=== PATIENT | male | born 1965 | race Caucasian/White ===

== ENCOUNTER 2020-07-14 15:19 | Emergency (ER) | payer BC, SELFPAY ==
[2020-07-14 18:02] VITALS: BP 133/78; PULSE 85; RESP 16; TEMP 36.6; O2SAT 99; BMI 21.9
--- NOTE | 2020-07-14 18:33 | ECG_ITS ---
Test Reason : left rib pain Blood Pressure : / mmHG Vent. Rate : 078 BPM Atrial Rate : 078 BPM P-R Int : 206 ms QRS Dur : 092 ms QT Int : 348 ms P-R-T Axes : 051 -07 050 degrees QTc Int : 396 ms Normal sinus rhythm Cannot rule out Inferior infarct , age undetermined Possible Anterior infarct , age undetermined Abnormal ECG No previous ECGs available Referred By: Olivier Perla Electronically Signed By:MAN SANTOYO MD
--- NOTE | 2020-07-14 18:36 | XR_ITS ---
EXAMINATION: CHEST AND LEFT RIBS. CLINICAL INFORMATION: Left-sided lower rib pain. COMPARISON: Chest 10/25/2017 TECHNIQUE: Chest 2 views. Left RIBS 4 views. FINDINGS: CHEST: The lungs are well-expanded and clear of acute process. The heart size and pulmonary vascularity is normal. There is mild dextroscoliosis of dorsal spine. No lytic process. LEFT RIBS: There is no visible fracture for fracture or bony abnormality. The soft tissues are normal. XR/XR ribs LT 2V IMPRESSION: Unremarkable chest exam. There is no visible left rib fracture or bony abnormality.
--- NOTE | 2020-07-14 18:36 | XR_ITS ---
EXAMINATION: CHEST AND LEFT RIBS. CLINICAL INFORMATION: Left-sided lower rib pain. COMPARISON: Chest 10/25/2017 TECHNIQUE: Chest 2 views. Left RIBS 4 views. FINDINGS: CHEST: The lungs are well-expanded and clear of acute process. The heart size and pulmonary vascularity is normal. There is mild dextroscoliosis of dorsal spine. No lytic process. LEFT RIBS: There is no visible fracture for fracture or bony abnormality. The soft tissues are normal. XR/XR chest 2V IMPRESSION: Unremarkable chest exam. There is no visible left rib fracture or bony abnormality.
--- NOTE | 2020-07-14 18:50 | ED_ITS ---
HPI - General Adult General Chief complaint: Back Pain/Injury Stated complaint: LOWER BACK PAIN Time Seen by Provider: 07/14/20 20:10 Source: patient Mode of arrival: ambulatory Limitations: no limitations History of Present Illness HPI narrative: Patient presents to the ED for left lower rib pain since this morning. Patient states he woke up with left lower rib upper back pain that is worse on movement. Patient also states left chest pain on inspiration Patient denies any recent trauma, coughing, fever, or chills. 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 Related Data Previous Rx's Medication Instructions Recorded cyclobenzaprine 10 mg PO TID PRN #15 tab 07/14/20 naproxen 500 mg PO BID PRN #20 tab 07/14/20 Allergies Allergy/AdvReac Type Severity Reaction Status Date / Time No Known Allergies Allergy Verified 07/14/20 18:33 Review of Systems Review of Systems: Yes all other systems are reviewed and are negative Constitutional: Constitutional: Reports as per HPI and Reports no additional constitutional complaints Eyes: Eyes: Reports as per HPI and Reports no additional eye complaints ENT: Reports system reviewed and no additional complaints, except as documented and Reports as per HPI Cardiovascular: Cardiovascular: Reports as per HPI and Reports no additional cardiovascular complaints Comments: Left lower rib. Respiratory: Respiratory: Reports as per HPI and Reports no additional respiratory complaints Gastrointestinal: Gastrointestinal: Reports as per HPI and Reports no additional gastrointestinal complaints Genitourinary: Genitourinary: Reports no additional male genitourinary complaints and Reports as per HPI Musculoskeletal: Musculoskeletal: Reports no additional musculoskeletal complaints and Reports as per HPI Neurologic: Reports system reviewed and no additional complaints, except as documented Psychiatric: Psychiatric: Reports no additional psychiatric complaints and Reports as per HPI [facility] Past Medical History Medical History (Updated 07/15/20 @ 00:00 by Background Daemon) No known health problems Social History Social History Smoking Status: Current every day smoker Substance Use Type: Marijuana Advance Directives: No Advance Directives Information Provided: Yes Physical Exam 2 Vital Signs: Vital Signs: Last Vital Signs Temp 97.9 F 07/14/20 18:02 Pulse 85 07/14/20 18:02 Resp 16 07/14/20 18:02 BP 133/78 07/14/20 18:02 Pulse Ox 99 07/14/20 18:02 Body Mass Index 21.9 Const: General: cooperative, healthy appearing, comfortable, no acute distress, well developed, alert, awake and Physically active Orientation/consciousness: patient oriented x3 HENMT: Head: Yes normal to inspection and Yes No palpable skull fracture present Eyes: General: appearance normal, both eyes and all related structures Neck: Neck: Yes normal visual inspection, Yes full ROM, Yes no lymphadenopathy, Yes no meningeal signs, Yes trachea midline, Yes supple and No tender Chest: Other: Positive for left lower posterior rib tenderness on palpation. Negative for any deformities or ecchymosis. Chest palpation & inspection: nor mal inspection of the chest Resp: Effort & Inspection: normal respiratory effort and able to speak in complete sentences Auscultation: clear to auscultation bilaterally Cardio: Jugular venous distension: no JVD Heart sounds: S1 normal heart sound present and S2 normal heart sound present GI: Inspection: Yes normal to inspection and No abdominal wall ecchymosis Palpation (GI): Soft to palpation, not firm, nontender, no guarding and not rigid : General: Yes CVA tenderness (Right) and Yes no CVA tenderness Back/Spine/Pelvis: Back: no CVA tenderness, CVA tenderness (Right) and No back tenderness Skin: General skin exam: no rashes or lesions noted and elasticity normal Neuro: General: patient oriented x3, no meningeal signs and CN's II-XI intact bilaterally Cranial nerves: Yes CN's II-XII intact bilaterally Extrem: General: Yes normal to inspection and Yes full ROM Psych: Appearance: grossly normal, well kempt and not disheveled Course Course Course Narrative: Due to patient having left lower rib pain without any trauma with chest pain inspiration. Patient will have cardiac and pulmonary evaluation if there is no MRI or PE. Patient also have urinalysis sent. Patient states he has chronic blood in his urine and has been worked up by urologist and have not found the cause. Patient also given Toradol Flexeril. Other differential muscle spasm. Reevaluation(s) Reevaluation #1: Patient negative D-dimer. Patient's Wells score is 0. Chest x-ray and rib x-ray negative for any rib fractures, pneumonia, pneumothorax, hemothorax. Patient's troponin negative. Patient EKG negative for STEMI. Patient states feeling better. Patient blood in the urine which he states is chronic but due to patient having lower rib left leg pain patient is agreeable to abdominal CT scan to rule out kidney stones. Time: 20:23 Reevaluation #2: CT scan came back negative for any abdominal etiology. Patient discharged with naproxen and Flexeril. Diagnosis muscle spasm Time: 21:44 Medical Decision Making MDM Narrative Medical decision making narrative: Muscle spasm Lab Data Result diagrams: 07/14/20 19:08 07/14/20 19:08 Labs: Lab Results 07/14/20 07/14/20 07/14/20 Range/Units 19:08 19:08 19:08 WBC 12.8 H (4.8-10.8) X10*3/uL RBC 4.85 (4.60-5.80) X10*6/uL Hgb 15.2 (14.0-18.0) g/dl Hct 45.0 (42-52) % MCV 92.8 (80-98) fL MCH 31.3 (27.0-33.0) pg MCHC 33.8 (31.0-36.0) g/dl RDW 13.2 (11.0-16.0) % Plt Count 234 (160-400) X10*3/uL MPV 9.3 L (9.4-12.4) fL Immature Gran % (Auto) 0.9 H (0.0-0.4) % Neut % (Auto) 63.9 (45-73) % Lymph % (Auto) 22.0 (20-40) % Sharp % (Auto) 7.6 (2-11) % Eos % (Auto) 4.7 H (0-4) % Baso % (Auto) 0.9 (0-2) % Lymph # (Auto) 2.8 (1.2-4.9) X10*3/uL Sharp # (Auto) 1.0 (0.1-1.2) X10*3/uL Eos # (Auto) 0.6 H (0.0-0.4) X10*3/uL Baso # (Auto) 0.1 (0.0-0.2) X10*3/uL Abs Immat Gran (auto) 0.11 H (0.00-0.03) X10*3/uL Absolute Neuts (auto) 8.2 (2.0-8.3) X10*3/uL Absolute Nucleated RBC 0.000 (0.0-0.012) X10*3/uL Nucleated RBC % (auto) 0.0 (0.0-0.2) /100WBC PT 11.9 (10.8-13.0) SEC INR 1.0 (0.9-1.1) APTT 34.7 (24.1-38.0) SEC D-Dimer < 200 NG/ML Sodium 138 (135-145) mmol/L Potassium 4.8 (3.3-5.1) mmol/l Chloride 102 (96-108) mmol/L Carbon Dioxide 28 (22-29) mmol/L Anion Gap 13 (12-20) BUN 15 (9-16) mg/dL Creatinine 0.73 (0.5-1.4) mg/dL Estim Creat Clear Calc 103.9 Estimated GFR > 60 Random Glucose 84 (60-115) mg/dL Calcium 9.3 (8.4-10.2) mg/dL Total Bilirubin 1.0 (0.0-1.0) mg/dL AST 21 (5-37) U/L ALT 21 (0-40) U/L Alkaline Phosphatase 55 (39-117) U/L Troponin I High Sens (<3.5-35.0) ng/L Total Protein 7.1 (6.5-8.0) g/dL Albumin 4.4 (3.5-5.0) g/dL Urine Color Urine Appearance Urine pH (5.0-8.0) Ur Specific [place] (1.005-1.025) Urine Protein (NEG-TRACE) MG/DL Urine Glucose (UA) (NEG) MG/DL Urine Ketones (NEG) MG/DL Urine Blood (NEG) Urine Nitrite (NEG) Ur Leukocyte Esterase (NEG) Urine RBC (0) /HPF Urine WBC (0-4) /HPF Ur Squamous Epith Cells /LPF Urine Bacteria /LPF 07/14/20 07/14/20 Range/Units 19:08 19:11 WBC (4.8-10.8) X10*3/uL RBC (4.60-5.80) X10*6/uL Hgb (14.0-18.0) g/dl Hct (42-52) % MCV (80-98) fL MCH (27.0-33.0) pg MCHC (31.0-36.0) g/dl RDW (11.0-16.0) % Plt Count (160-400) X10*3/uL MPV (9.4-12.4) fL Immature Gran % (Auto) (0.0-0.4) % Neut % (Auto) (45-73) % Lymph % (Auto) (20-40) % Sharp % (Auto) (2-11) % Eos % (Auto) (0-4) % Baso % (Auto) (0-2) % Lymph # (Auto) (1.2-4.9) X10*3/uL Sharp # (Auto) (0.1-1.2) X10*3/uL Eos # (Auto) (0.0-0.4) X10*3/uL Baso # (Auto) (0.0-0.2) X10*3/uL Abs Immat Gran (auto) (0.00-0.03) X10*3/uL Absolute Neuts (auto) (2.0-8.3) X10*3/uL Absolute Nucleated RBC (0.0-0.012) X10*3/uL Nucleated RBC % (auto) (0.0-0.2) /100WBC PT (10.8-13.0) SEC INR (0.9-1.1) APTT (24.1-38.0) SEC D-Dimer NG/ML Sodium (135-145) mmol/L Potassium (3.3-5.1) mmol/l Chloride (96-108) mmol/L Carbon Dioxide (22-29) mmol/L Anion Gap (12-20) BUN (9-16) mg/dL Creatinine (0.5-1.4) mg/dL Estim Creat Clear Calc Estimated GFR Random Glucose (60-115) mg/dL Calcium (8.4-10.2) mg/dL Total Bilirubin (0.0-1.0) mg/dL AST (5-37) U/L ALT (0-40) U/L Alkaline Phosphatase (39-117) U/L Troponin I High Sens < 3.5 (<3.5-35.0) ng/L Total Protein (6.5-8.0) g/dL Albumin (3.5-5.0) g/dL Urine Color YELLOW Urine Appearance CLEAR Urine pH 6.0 (5.0-8.0) Ur Specific [place] 1.020 (1.005-1.025) Urine Protein NEG (NEG-TRACE) MG/DL Urine Glucose (UA) NEG (NEG) MG/DL Urine Ketones NEG (NEG) MG/DL Urine Blood 2+ H (NEG) Urine Nitrite NEG (NEG) Ur Leukocyte Esterase NEG (NEG) Urine RBC 1-4 (0) /HPF Urine WBC 0 (0-4) /HPF Ur Squamous Epith Cells TRACE /LPF Urine Bacteria NONE /LPF ECG Data Interpretation: Normal sinus rhythm. Ventricular rate 78. Pr interval 206. QRS 92. QTC 296. Negative STEMI Discharge Plan Discharge Clinical Impression: Muscle spasm Patient Disposition: Home, Self-Care Instructions: Muscle Spasm (ED) Additional Instructions: Return to ED for chest pain, coughing up blood, swelling of lower extremities, calf pain, fever, chills, or any other concerning symptoms. Prescriptions: New cyclobenzaprine 10 mg tablet 10 mg PO TID PRN (Reason: pain) Qty: 15 RF: 0 naproxen 500 mg tablet 500 mg PO BID PRN (Reason: pain) Qty: 20 RF: 0 Referrals: Rodger Chris MD [Primary Care Provider] - 2 days (Back spasm) Stand Alone Forms: Work/School Release Interventions: ED Discharge Assessment Last Done: 07/14/20 22:11 Discharge Date/Time: 07/14/20 22:16 Print Language: Amharic
[2020-07-14 19:18] LABS: MANUAL DIFF FLAG NO
[2020-07-14 19:22] LABS: Basophils Absolute Auto 0.1 X10*3/uL (0.0-0.2); Basophils Percent Auto 0.9 % (0-2); Eosinophils Absolute Auto 0.6 X10*3/uL (0.0-0.4); Eosinophils Percent Auto 4.7 % (0-4); Hemoglobin 15.2 g/dl (14.0-18.0); Imm Gran Abs Auto 0.11 X10*3/uL (0.00-0.03); Imm Gran Pct Auto 0.9 % (0.0-0.4); Lymphocytes Absolute Auto 2.8 X10*3/uL (1.2-4.9); Mean Corpuscular HGB Conc 33.8 g/dl (31.0-36.0); Mean Corpuscular Hemoglobin 31.3 pg (27.0-33.0); Mean Corpuscular Volume 92.8 fL (80-98); Mean Platelet Volume 9.3 fL (9.4-12.4); Monocytes Percent Auto 7.6 % (2-11); Neutrophils Absolute Auto 8.2 X10*3/uL (2.0-8.3); Neutrophils Percent Auto 63.9 % (45-73); Platelet Count 234 X10*3/uL (160-400); Red Blood Count 4.85 X10*6/uL (4.60-5.80); Red Cell Distribution Width 13.2 % (11.0-16.0); White Blood Count 12.8 X10*3/uL (4.8-10.8)
[2020-07-14 19:31] LABS: Prothrombin Time 11.9 SEC (10.8-13.0)
[2020-07-14 19:32] LABS: Glucose Urine UA NEG (NEG); Leukocyte Esterase Urine NEG (NEG); Nitrite Urine NEG (NEG); Urine Blood 2+ (NEG); Urine Ketones NEG (NEG); Urine Protein NEG (NEG-TRACE)
[2020-07-14 19:34] LABS: Partial Thromboplastin Time 34.7 SEC (24.1-38.0)
[2020-07-14 19:35] LABS: Appearance Urine CLEAR; Color Urine YELLOW
[2020-07-14 19:35] LABS: D Dimer < 200 NG/ML
[2020-07-14] MEDS: Ketorolac Tromethamine 30 MG/ML VIAL IM (19:36)
[2020-07-14] MEDS: Cyclobenzaprine HCl 5 MG TABLET PO (19:40)
[2020-07-14 19:45] LABS: Squamous Epithelial Cell Urine TRACE /LPF; WBC Urine 0 /HPF (0-4)
[2020-07-14 19:52] LABS: Alanine Aminotransferase 21 U/L (0-40); Albumin Level 4.4 g/dL (3.5-5.0); Alkaline Phosphatase 55 U/L (39-117); Anion Gap 13 (12-20); Aspartate Amino Transferase 21 U/L (5-37); Blood Urea Nitrogen 15 mg/dL (9-16); Calcium 9.3 mg/dL (8.4-10.2); Carbon Dioxide 28 mmol/L (22-29); Chloride 102 mmol/L (96-108); Creatinine Clr Calc Pharmacy 103.9; Estimated Glomerular Filt Rate > 60; Glucose Random 84 mg/dL (60-115); Potassium 4.8 mmol/l (3.3-5.1); Sodium 138 mmol/L (135-145); Total Protein 7.1 g/dL (6.5-8.0)
[2020-07-14 19:55] LABS: Troponin-I High Sensitivity < 3.5 ng/L (<3.5-35.0)
--- NOTE | 2020-07-14 20:14 | CT_ITS ---
EXAMINATION: CT ABDOMEN AND PELVIS WITHOUT CONTRAST CLINICAL INFORMATION: Left flank pain. Rule out kidney stone. COMPARISON: None TECHNIQUE: Multidetector volumetric imaging was performed from the superior aspect of the liver through the pubic symphysis. Sagittal and coronal reformatted images were obtained on the technologist's workstation. This CT examination was performed using dose optimization techniques as appropriate, variously including the following: *Automated exposure control *Adjustment of mA and/or kV according to patient size (this includes techniques or standardized protocols for targeted exams where dose is matched to indication/reason for exam; i.e. extremities or head) *Use of iterative reconstruction technique DLP: 383 mGy-cm FINDINGS: LUNG BASES: The visualized lung bases are unremarkable. LIVER, GALLBLADDER, AND BILIARY TREE: The liver is normal in size, shape, and attenuation. No focal hepatic lesion or biliary ductal dilatation is present. The gallbladder is unremarkable with no evidence of radiopaque gallstones, gallbladder wall thickening, or obvious pericholecystic inflammatory changes. PANCREAS: Unremarkable. SPLEEN: Unremarkable. ADRENAL GLANDS: Unremarkable. KIDNEYS AND URETERS: The kidneys are normal in size, shape, and attenuation. No hydronephrosis, hydroureter, or calculi seen. No perinephric stranding. BLADDER: Normal. GASTROINTESTINAL TRACT: The small and large bowel are unremarkable. Colonic diverticulosis. No evidence of diverticulitis. The appendix is unremarkable (3:40/83). ABDOMINAL WALL: No significant hernia is appreciated. LYMPH NODES: Normal. VASCULAR: Mild aortoiliac atherosclerotic disease. PELVIC VISCERA: Seminal vesicles and prostate are normal in caliber. OSSEOUS STRUCTURES: Severe multilevel degenerative disc disease and endplate marginal osteophytosis of the lumbar spine CT/CT abdomen pelvis wo con IMPRESSION: 1. No evidence of renal calculi. No ureteral or urinary bladder calculi visualized. 2. Colonic diverticulosis. No evidence of diverticulitis. 3. 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 4. Normal appendix. 5. Severe lumbar degenerative disc disease and multilevel endplate degenerative changes.
== END 2020-07-14 22:16 | disposition home or self-care (01) ==
PROVIDERS: Physician Assistant; Emergency Provider Internal Medicine; PCP Internal Medicine
DX: R07.81 Pleurodynia (principal); M62.830 Muscle spasm of back; M54.5 Low back pain; F17.200 Nicotine dependence, unspecified, uncomplicated; Z71.6 Tobacco abuse counseling; F12.90 Cannabis use, unspecified, uncomplicated; Z79.899 Other long term (current) drug therapy
CPT/HCPCS: 36415; 71046; 71100; 74176; 80053; 81001; 84484; 85025; 85379; 85610; 85730; 93005; 96372; 99284; J1885

== ENCOUNTER 2020-08-03 09:58 | Outpatient (REF) | payer BC, SELFPAY ==
[2020-08-03 10:42] LABS: Influenza A PCR NEGATIVE (Negative); Influenza B PCR NEGATIVE (Negative); Resp Syncy Virus RNA Qual PCR NEGATIVE (Negative); SARS COV2 PCR INHOUSE NEGATIVE (Negative)
== END 2020-08-03 09:59 | disposition home or self-care (01) ==
LOC: HO.LNP 09:58
PROVIDERS: Visit Provider Internal Medicine
DX: Z20.822 Contact with and (suspected) exposure to COVID-19 (principal)
CPT/HCPCS: 0241U

== ENCOUNTER 2021-10-27 06:07 | Outpatient (REF) | payer BC, SELFPAY ==
[2021-10-27 06:22] LABS: MANUAL DIFF FLAG NO
[2021-10-27 07:22] LABS: Basophils Absolute Auto 0.1 X10*3/uL (0.0-0.2); Basophils Percent Auto 1.2 % (0-2); Eosinophils Absolute Auto 0.7 X10*3/uL (0.0-0.4); Eosinophils Percent Auto 7.2 % (0-4); Hematocrit 45.5 % (42.0-52.0); Hemoglobin 15.3 g/dl (14.0-18.0); Imm Gran Abs Auto 0.03 X10*3/uL (0.00-0.03); Imm Gran Pct Auto 0.3 % (0.0-0.4); Lymphocytes Absolute Auto 2.3 X10*3/uL (1.2-4.9); Lymphocytes Percent Auto 23.9 % (20-40); Mean Corpuscular HGB Conc 33.6 g/dl (31.0-36.0); Mean Corpuscular Hemoglobin 31.8 pg (27.0-33.0); Mean Corpuscular Volume 94.6 fL (80.0-98.0); Mean Platelet Volume 9.7 fL (9.4-12.4); Monocytes Absolute Auto 0.7 X10*3/uL (0.1-1.2); Monocytes Percent Auto 7.2 % (2-11); Neutrophils Absolute Auto 5.9 x10*3/uL (2.0-8.3); Neutrophils Percent Auto 60.2 % (45-73); Platelet Count 236 X10*3/uL (160-400); Red Blood Count 4.81 X10*6/uL (4.60-5.80); Red Cell Distribution Width 13.9 % (11.0-16.0); White Blood Count 9.8 X10*3/uL (4.8-10.8)
[2021-10-27 07:50] LABS: Alanine Aminotransferase 17 U/L (0-40); Albumin Level 3.9 g/dL (3.5-5.0); Alkaline Phosphatase 51 U/L (39-117); Anion Gap 10 (12-20); Aspartate Amino Transferase 20 U/L (5-37); Blood Urea Nitrogen 14 mg/dL (9-16); Calcium 9.4 mg/dL (8.4-10.2); Carbon Dioxide 29 mmol/L (22-29); Chloride 104 mmol/L (96-108); Cholesterol 196 mg/dL; Estimated Glomerular Filt Rate > 60; Glucose Fasting 94 mg/dL (60-99); HDL Cholesterol 50 mg/dL; LDL Cholesterol Calculated 136 mg/dl; Potassium 4.6 mmol/L (3.3-5.1); Sodium 138 mmol/L (135-145); Total Protein 6.6 g/dL (6.5-8.0); Triglycerides 50 mg/dL
[2021-10-27 08:13] LABS: Prostate Specific Antigen Scr 1.19 ng/mL (<0.05-4.0)
[2021-10-27 08:21] LABS: Appearance Urine CLEAR; Color Urine YELLOW; Glucose Urine UA NEG (NEG); Leukocyte Esterase Urine NEG (NEG); Nitrite Urine NEG (NEG); Specific Gravity - Urine 1.025 (1.005-1.025); Urine Blood 2+ (NEG); Urine Ketones NEG (NEG); Urine Protein NEG (NEG-TRACE)
[2021-10-27 09:10] LABS: Squamous Epithelial Cell Urine 1+ /LPF
[2021-10-27 09:12] LABS: WBC Urine 0 /HPF (0-4)
[2021-10-29 00:51] LABS: Lyme Abs Screen <0.90 index
== END 2021-10-27 06:08 | disposition home or self-care (01) ==
LOC: HO.LAB 06:07
PROVIDERS: PCP Internal Medicine; Visit Provider Internal Medicine
DX: Z00.00 Encounter for general adult medical examination without abnormal findings (principal); T14.8XXA Other injury of unspecified body region, initial encounter; W57.XXXA Bitten or stung by nonvenomous insect and other nonvenomous arthropods, initial encounter
CPT/HCPCS: 36415; 80053; 80061; 81001; 84153; 85025; 86617; 86618

== ENCOUNTER → 2021-11-19 09:14 | Outpatient (BNVA) | payer BC, SELFPAY | PROVIDERS: PCP Internal Medicine; Referring Provider Internal Medicine; Visit Provider Surgery | DX: Z13.89 Encounter for screening for other disorder (principal) ==

== ENCOUNTER 2021-12-24 14:25 | Outpatient (REF) | payer BC, SELFPAY ==
--- NOTE | ~2021-12-24 | CT_ITS ---
EXAMINATION: CT CHEST SCREENING CLINICAL INFORMATION: Current smoker. 40 pack year history. COMPARISON: Previous chest CT October 2017 and chest and rib x-ray July 2020 TECHNIQUE: Multidetector volumetric CT imaging of the chest is performed without contrast using low dose technique. Additional 2D coronal and sagittal reformatted images and axial 3D maximum intensity projection (MIP) images are generated on the CT workstation. This CT examination was performed using dose optimization techniques as appropriate, variously including the following: *Automated exposure control *Adjustment of mA and/or kV according to patient size (this includes techniques or standardized protocols for targeted exams where dose is matched to indication/reason for exam; i.e. extremities or head) *Use of iterative reconstruction technique DLP: 49 mGy-cm FINDINGS: LUNGS: There is a new 3 mm peripheral or subpleural left lower lobe nodule adjacent to the fissure axial image 259 series 5. Pulmonary nodules are otherwise stable. Largest pulmonary nodule is a 5 mm calcified right lower lobe nodule axial image 267 series 5. No endobronchial or endotracheal lesion. MEDIASTINUM: There is mild coronary artery calcification. The mediastinum is otherwise normal. PLEURA: There is no pleural effusion. No pleural mass or thickening. AXILLA: No lymphadenopathy. UPPER ABDOMEN: Unremarkable OSSEOUS STRUCTURES: Unremarkable. CT/CT lung screening IMPRESSION: New 3 mm peripheral or subpleural left lower lobe nodule adjacent to the fissure probably representing a subpleural lymph node. Otherwise pulmonary nodules are stable. Mild coronary artery calcification. ASSESSMENT: Lung-RADS category 2: Benign RECOMMENDATION: Annual low-dose chest CT follow-up recommended.
[2021-12-24 15:11] LABS: Urine Cytology See Pathology rpt
== END 2021-12-24 14:26 | disposition home or self-care (01) ==
LOC: HO.CT 14:25
PROVIDERS: Internal Medicine; Visit Provider Physician Assistant Medical
DX: Z12.2 Encounter for screening for malignant neoplasm of respiratory organs (principal); F17.210 Nicotine dependence, cigarettes, uncomplicated
CPT/HCPCS: 71271; 88112; G0296

== ENCOUNTER 2022-01-10 15:34 | Outpatient (REF) | payer BC, SELFPAY ==
--- NOTE | ~2022-01-10 | US_ITS ---
EXAMINATION: US RETROPERITONEAL LIMITED (RENAL ONLY) CLINICAL INFORMATION: Hematuria COMPARISON: CT abdomen and pelvis 07/14/2020. TECHNIQUE: Real-time imaging of the kidneys. FINDINGS: RIGHT KIDNEY: 11.8 x 4.1 x 5.1 cm (SAG x AP x TRV). The kidney is normal in size, contour, and echogenicity. Renal cortical thickness is normal. No calculi or focal parenchymal lesions. No hydronephrosis. LEFT KIDNEY: 10.2 x 5.9 x 5.5 cm (SAG x AP x TRV). The kidney is normal in size, contour, and echogenicity. Renal cortical thickness is normal. No renal calculi or hydronephrosis. There is an anechoic cyst midpole with echogenic calcified rim measuring 1.2 x 0.8 x 1.1 cm. US/US renal BI IMPRESSION: Complex cyst midpole left kidney. No echogenic stones, calculi or hydronephrosis in either kidney.
== END 2022-01-10 15:35 | disposition home or self-care (01) ==
LOC: HO.US 15:34
PROVIDERS: Visit Provider Internal Medicine
DX: R31.9 Hematuria, unspecified (principal)
CPT/HCPCS: 76775

== ENCOUNTER 2022-06-01 14:40 | Outpatient (REF) | payer BC, SELFPAY ==
[2022-06-01 16:45] LABS: Urine Cytology See Pathology rpt
== END 2022-06-01 14:41 | disposition home or self-care (01) ==
LOC: HO.LAB 14:40
PROVIDERS: Visit Provider Urology
DX: R31.9 Hematuria, unspecified (principal)
CPT/HCPCS: 88112

== ENCOUNTER → 2022-07-12 13:56 | Outpatient (BNVA) | payer BC, SELFPAY | PROVIDERS: PCP Internal Medicine; Visit Provider Urology | DX: R31.9 Hematuria, unspecified (principal) | CPT/HCPCS: 52000 ==

== ENCOUNTER 2023-04-28 15:48 | Outpatient (REF) | payer BC, SELFPAY ==
--- NOTE | ~2023-04-28 | CT_ITS ---
EXAMINATION: CT CHEST SCREENING CLINICAL INFORMATION: Current smoker. 41 pack year history. COMPARISON: Previous chest CT most recent December 2021 TECHNIQUE: Multidetector volumetric CT imaging of the chest is performed without contrast using low dose technique. Additional 2D coronal and sagittal reformatted images and axial 3D maximum intensity projection (MIP) images are generated on the CT workstation. This CT examination was performed using dose optimization techniques as appropriate, variously including the following: *Automated exposure control *Adjustment of mA and/or kV according to patient size (this includes techniques or standardized protocols for targeted exams where dose is matched to indication/reason for exam; i.e. extremities or head) *Use of iterative reconstruction technique DLP: 41 mGy-cm FINDINGS: LUNGS: Mild paraseptal emphysema. Stable small pulmonary nodules, largest a 5 mm calcified right lower lobe nodule axial image 275 series 5. MEDIASTINUM: The mediastinum is normal. CORONARY ARTERY CALCIFICATION: Mild PLEURA: There is no pleural effusion. No pleural mass or thickening. AXILLA: No lymphadenopathy. UPPER ABDOMEN: Unremarkable OSSEOUS STRUCTURES: Unremarkable. CT/CT lung screening IMPRESSION: Mild emphysema. Stable small pulmonary nodules. ASSESSMENT: Lung-RADS category 2: Benign RECOMMENDATION: Annual low-dose chest CT follow-up recommended
== END 2023-04-28 15:49 | disposition home or self-care (01) ==
LOC: HO.CT 15:48
PROVIDERS: PCP Internal Medicine; Visit Provider Physician Assistant Medical
DX: Z12.2 Encounter for screening for malignant neoplasm of respiratory organs (principal); F17.210 Nicotine dependence, cigarettes, uncomplicated
CPT/HCPCS: 71271

== ENCOUNTER 2023-10-26 08:42 | Emergency (ER) | payer BC, SELFPAY ==
--- NOTE | 2023-10-26 | ECG_ITS ---
Test Reason : chest pain Blood Pressure : / mmHG Vent. Rate : 076 BPM Atrial Rate : 076 BPM P-R Int : 216 ms QRS Dur : 092 ms QT Int : 344 ms P-R-T Axes : 060 -12 045 degrees QTc Int : 387 ms Sinus rhythm with 1st degree A-V block Incomplete right bundle branch block Cannot rule out Inferior infarct (cited on or before 14-JUL-2020) Possible Anterior infarct (cited on or before 14-JUL-2020) Abnormal ECG When compared with ECG of 14-JUL-2020 19:45, No significant change was found Referred By: Generic ED Physician Electronically Signed By:MAN SANTOYO MD
--- NOTE | ~2023-10-26 | CT_ITS ---
EXAMINATION: CT ANGIOGRAM OF THE CHEST WITH CONTRAST (CT PULMONARY ANGIOGRAM FOR PE) CLINICAL INFORMATION: Recent travel, chest pain, evaluate for PE v dissection COMPARISON: Chest CT from 04/28/2023 TECHNIQUE: Prior to contrast administration, noncontrast localization images were obtained. Subsequently, multidetector volumetric imaging was performed from the thoracic inlet to below the diaphragms following the administration of 65 mL Omnipaque 350 intravenous contrast. No contrast reaction reported. Sagittal, coronal, and MIP oblique sagittal reformatted images were obtained on the CT workstation, uploaded to PACS, and reviewed. This CT examination was performed using dose optimization techniques as appropriate, variously including the following: *Automated exposure control *Adjustment of mA and/or kV according to patient size (this includes techniques or standardized protocols for targeted exams where dose is matched to indication/reason for exam; i.e. extremities or head) *Use of iterative reconstruction technique DLP: Total exam dose-length product 271 mGy-cm FINDINGS: LUNGS AND PLEURA: Mild pulmonary emphysema. The bronchial bill are chronically diffusely, mildly thickened. Findings include old calcified granuloma in the right lower lobe. No interval development of a suspicious lung nodule, mass or consolidation. No pleural effusion or pneumothorax. There are hazy opacities of mild atelectasis in lower lobes. QUALITY OF STUDY/CONTRAST BOLUS: Satisfactory. PULMONARY ARTERIES: The pulmonary arteries are normal in size. No embolic filling defects within the main, lobar or segmental vessels. OTHER CARDIOVASCULAR: The heart size is normal. No pericardial effusion. Mild atherosclerotic calcification of the left anterior descending coronary artery is noted. Thoracic aorta is normal in caliber and has mild atherosclerotic calcification. MEDIASTINUM/LOWER NECK: No mediastinal mass. The esophagus and thyroid gland are unremarkable. LYMPHATICS: No pathologic sized axillary, hilar or mediastinal lymph nodes. UPPER ABDOMEN: Unremarkable. OSSEOUS STRUCTURES: Mild spondylosis of the thoracic spine. Mild pectus excavatum. No acute or suspicious osseous abnormality. CT/CT angio chest PE protocol IMPRESSION: * No evidence of pulmonary embolism. * Mild pulmonary emphysema.
--- NOTE | ~2023-10-26 | XR_ITS ---
EXAMINATION: XR CHEST CLINICAL INFORMATION: Chest pain COMPARISON: Radiographs from 07/22/2020. Chest CT from 04/28/2023. TECHNIQUE: 2 views of the chest were obtained. FINDINGS: Lungs are well expanded. No acute findings. No consolidation, pneumothorax or pleural effusion. Calcified granuloma within right lower lobe. Cardiac silhouette has normal size and contour. Mild pectus excavatum. Mild multilevel discovertebral degenerative change of the visualized spine. XR/XR chest 2V IMPRESSION: No acute pulmonary disease.
--- NOTE | ~2023-10-26 | US_ITS ---
EXAMINATION: US VENOUS ULTRASOUND WITH DOPPLER LOWER EXTREMITY, RIGHT CLINICAL INFORMATION: Recent travel and right leg pain COMPARISON: None available. TECHNIQUE: Ultrasound of the deep veins is performed from the hip to the calf with compression sonography and color and pulse Doppler assessment. Spectral analysis with color-flow imaging is performed. FINDINGS: There is normal venous compression and respiratory variation. The visualized common femoral vein, superficial femoral vein, profunda femoral vein, popliteal vein, and the mid calf posterior tibial and peroneal veins shows no evidence of deep venous thrombosis. The contralateral common femoral vein demonstrates normal respiratory variation. Incidental note is made of a 2.9 x 0.8 x 1.9 cm benign-appearing lymph node in the right groin. US/US venous duplex LE RT IMPRESSION: No DVT demonstrated in the right lower extremity.
[2023-10-26 08:57] VITALS: BP 137/76; PULSE 74; RESP 18; TEMP 36.4; O2SAT 99; BMI 22.9
[2023-10-26 09:22] LABS: MANUAL DIFF FLAG NO
[2023-10-26 09:24] LABS: Basophils Absolute Auto 0.1 X10*3/uL (0.0-0.2); Eosinophils Absolute Auto 0.8 X10*3/uL (0.0-0.4); Eosinophils Percent Auto 8.3 % (0-4); Hematocrit 47.3 % (42.0-52.0); Hemoglobin 16.2 g/dl (14.0-18.0); Imm Gran Abs Auto 0.03 X10*3/uL (0.00-0.03); Imm Gran Pct Auto 0.3 % (0.0-0.4); Lymphocytes Absolute Auto 2.1 X10*3/uL (1.2-4.9); Lymphocytes Percent Auto 21.4 % (20-40); Mean Corpuscular HGB Conc 34.2 g/dl (31.0-36.0); Mean Corpuscular Hemoglobin 31.6 pg (27.0-33.0); Mean Corpuscular Volume 92.4 fL (80.0-98.0); Monocytes Absolute Auto 0.9 X10*3/uL (0.1-1.2); Monocytes Percent Auto 8.8 % (2-11); Neutrophils Absolute Auto 5.8 x10*3/uL (2.0-8.3); Neutrophils Percent Auto 60.2 % (45-73); Platelet Count 236 X10*3/uL (160-400); Red Blood Count 5.12 X10*6/uL (4.60-5.80); Red Cell Distribution Width 13.5 % (11.0-16.0); White Blood Count 9.7 X10*3/uL (4.8-10.8)
[2023-10-26 09:36] LABS: D Dimer High Sensitivity < 150 NG/ML
[2023-10-26 09:38] LABS: Anion Gap 9 (12-20); Blood Urea Nitrogen 15 mg/dL (9-16); Calcium 9.7 mg/dL (8.4-10.2); Carbon Dioxide 30 mmol/L (22-29); Chloride 104 mmol/L (96-108); Creatinine Clr Calc Pharmacy 95.2; Estimated Glomerular Filt Rate > 60; Glucose Random 72 mg/dL (60-115); Potassium 4.2 mmol/L (3.3-5.1); Sodium 139 mmol/L (135-145)
[2023-10-26 09:46] LABS: Troponin-I High Sensitivity 5.2 ng/L (<3.5-35.0)
[2023-10-26 10:01] LABS: Influenza A PCR NEGATIVE (Negative); Influenza B PCR NEGATIVE (Negative); Resp Syncy Virus RNA Qual PCR NEGATIVE (Negative); SARS COV2 PCR INHOUSE NEGATIVE (Negative)
[2023-10-26 10:16] VITALS: BP 137/81; PULSE 66; RESP 20; O2SAT 97
--- NOTE | 2023-10-26 11:09 | ED.CHESTPAIN ---
HPI - Chest Pain General Chief Complaint: Chest Pain Stated Complaint: Chest pain Time Seen by Provider: 10/26/23 11:00 Source: patient Mode of arrival: ambulatory Limitations: no limitations History of Present Illness HPI narrative: 58-year-old male came in for evaluation of chest pain that started since yesterday at mid day about 24 hours now, pain is in the mid chest described as constant pain that waxes and wanes, in the morning the pain was very severe 10/10 and was more significant if he moves his head in the neck to either sides when the sharp pain flare up patient can not take a deep breath, but no difficulty breathing, no coughing. Patient has been complaining of right lower extremity pain, patient had a recent to 21 hours flight to [place] last week. Patient is a smoker 30 back-years, patient drinks 6 beer every night otherwise declined using any drugs. No history of PE or DVT. Related Data Home Medications ?Medication ?Instructions ?Recorded ?Confirmed ibuprofen 800 mg tablet 800 mg PO TID PRN pain 11/19/21 11/19/21 Previous Rx's ?Medication ?Instructions ?Recorded cyclobenzaprine 10 mg tablet 10 mg PO TID PRN pain #15 tabs 07/14/20 naproxen 500 mg tablet 500 mg PO BID PRN pain #20 tabs 07/14/20 Allergies Allergy/AdvReac Type Severity Reaction Status Date / Time No Known Allergies Allergy Verified 10/26/23 09:00 Review of Systems Review of Systems: All other systems are reviewed and are negative Constitutional: Reports as per HPI and Reports no additional constitutional complaints Eyes: Reports as per HPI and Reports no additional eye complaints Reports system reviewed and no additional complaints, except as documented Cardiovascular: Reports as per HPI and Reports no additional cardiovascular complaints Respiratory: Reports as per HPI and Reports no additional respiratory complaints Gastrointestinal: Reports as per HPI and Reports no additional gastrointestinal complaints Genitourinary: Reports no additional female genitourinary complaints Musculoskeletal: Reports no additional musculoskeletal complaints Skin/Breast: Reports system reviewed and no additional complaints, except as docu Psychiatric: Reports no additional psychiatric complaints Endocrine: Reports no additional endocrine complaints Hematologic/Lymphatic: Reports no additional hematologic/lymphatic complaints Allergic/Immunologic: Reports no additional allergic/immunologic complaints Reports system reviewed and no additional complaints, except as documented and Reports Abnormal speech present [facility] Past Medical History Medical History History of colon polyps Personal history of nicotine dependence Surgical History History of colonoscopy Social History Social History Alcohol intake: current Alcohol intake frequency: 3 or more drinks per day Alcohol type: beer Patient Tobacco Use Status: Current everyday Tobacco user Years Smoked: (onset 13yo, 1ppd x 43yrs, 40pyh) Smoked in Last 30 Days: Yes Use of substances other than those prescribed or required for medical reasons: No Substance Use Type: Marijuana Advance Directives: No Advance Directives Information Provided: Yes Do you have a plan to hurt others: No Plan Physical Exam Vital Signs: Vital Signs: Last Vital Signs Temp 97.6 F 10/26/23 12:44 Pulse 66 10/26/23 12:44 Resp 15 10/26/23 12:44 BP 143/85 H 10/26/23 12:44 Pulse Ox 98 10/26/23 12:44 O2 Del Method Room Air 10/26/23 12:44 BMI result Body Mass Index 22.9 Vital signs have been reviewed and appear to be correct. Blood pressure elevated. Heart rate normal. Respiratory rate normal. Temperature normal. Oxygen saturation normal. Appearance: Alert. Oriented X3. No acute distress. Head: Normal external exam. Normocephalic. Atraumatic. No Membreno signs noted. No raccoon eyes noted Eyes: PERRLA. EOMI. Conjunctiva and sclera normal. Eyelids normal. ENT: TM's Normal. Pharynx normal. Uvula midline. Moist mucous membranes. No trismus noted. No drooling noted. No muffled voice noted. Neck: Normal inspection. Neck supple. FROM. No adenopathy. Thyroid Normal. No meningeal signs. No neck mass noted. CVS: Normal heart rate and rhythm. Heart sound normal. No murmurs noted. Pulses normal throughout. Respiratory: No respiratory distress. Painless inspiration. Breath sounds normal. No wheezes/rales/rhonchi noted. Chest nontender. No accessory muscle usage noted or decreased air movement noted. Abdomen: Soft and nontender. Bowel sounds normal in all 4 quadrants. No distention noted. No organomegaly noted. No visible injury noted. Back: No CVA tenderness. Full range of motion noted. Skin: Skin warm and dry. Normal skin color. Normal skin turgor. No rashes/lesions/lacerations noted. Extremities: No lower extremity edema. Extremities exhibit normal range of motion. Extremities nontender. Neuro: Oriented X 3. Cranial nerve exam: II-XII are grossly intact No motor deficit. No sensory deficit. Reflexes normal. Course Reevaluation(s) Reevaluation #1: Chest pain feels better appears to be muscular since it worse in by movement and taking a deep breath. Unremarkable labs, CTA is negative for catastrophic pulmonary or vascular disease. Patient was reassured to follow-up with PCP and take NSAIDs if needed pain. Time: 13:59 Medications Administered Discontinued Medications Generic Name Dose Route Start Last Admin Trade Name Freq PRN Reason Stop Dose Admin Iohexol 100 ml 10/26/23 12:32 10/26/23 12:33 Iohexol 350 Mg/Ml 100 Ml Infus..Btl IV 10/26/23 12:33 65 ml ONCE ONE Administration Medical Decision Making Differential Diagnosis Differential Diagnoses: The differential diagnosis associated with the presentation includes (ACS, CHF, pneumothorax, pleural effusion, aortic dissection, pulmonary embolism, pneumonia electrolyte derangement, severe anemia, acute pancreatitis, acute cholecystitis.) Admission/Observation Consideration of admission/observation: Escalation of care including admission/observation considered Lab Data MDM Lab Attestation statement: I reviewed the patient's lab results. 10/26/23 09:18 10/26/23 09:18 Labs: Lab Results 10/26/23 10/26/23 10/26/23 Range/Units 09:17 09:18 13:02 WBC 9.7 (4.8-10.8) X10*3/uL RBC 5.12 (4.60-5.80) X10*6/uL Hgb 16.2 (14.0-18.0) g/dl Hct 47.3 (42.0-52.0) % MCV 92.4 (80.0-98.0) fL MCH 31.6 (27.0-33.0) pg MCHC 34.2 (31.0-36.0) g/dl RDW 13.5 (11.0-16.0) % Plt Count 236 (160-400) X10*3/uL MPV 9.0 L (9.4-12.4) fL Immature Gran % (Auto) 0.3 (0.0-0.4) % Neut % (Auto) 60.2 (45-73) % Lymph % (Auto) 21.4 (20-40) % Henderson % (Auto) 8.8 (2-11) % Eos % (Auto) 8.3 H (0-4) % Baso % (Auto) 1.0 (0-2) % Lymph # (Auto) 2.1 (1.2-4.9) X10*3/uL Henderson # (Auto) 0.9 (0.1-1.2) X10*3/uL Eos # (Auto) 0.8 H (0.0-0.4) X10*3/uL Baso # (Auto) 0.1 (0.0-0.2) X10*3/uL Abs Immat Gran (auto) 0.03 (0.00-0.03) X10*3/uL Absolute Neuts (auto) 5.8 (2.0-8.3) x10*3/uL Absolute Nucleated RBC 0.000 (0.0-0.012) X10*3/uL Nucleated RBC % (auto) 0.0 (0.0-0.2) /100WBC D-Dimer High Sensitivty < 150 NG/ML Sodium 139 (135-145) mmol/L Potassium 4.2 (3.3-5.1) mmol/L Chloride 104 (96-108) mmol/L Carbon Dioxide 30 H (22-29) mmol/L Anion Gap 9 L (12-20) BUN 15 (9-16) mg/dL Creatinine 0.80 (0.5-1.4) mg/dL Estim Creat Clear Calc 95.2 Estimated GFR > 60 Random Glucose 72 (60-115) mg/dL Calcium 9.7 (8.4-10.2) mg/dL Troponin I High Sens 5.2 < 2.7 (<3.5-35.0) ng/L Influenza Type A (PCR) NEGATIVE (Negative) Influenza Type B (PCR) NEGATIVE (Negative) RSV RNA Qual (PCR) NEGATIVE (Negative) SARS-CoV-2 RNA (RT-PCR) NEGATIVE (Negative) Independent Interpretation I performed an independent interpretation of an: Plain X-Ray (Chest: No acute pulmonary disease.), Ultrasound (Right LE:No DVT demonstrated in the right lower extremity.) and CT Scan (Chest CT angio:* No evidence of pulmonary embolism. * Mild pulmonary emphysema. ) Radiology Impression Discussion of test interpretation with radiology: I have reviewed the radiologist's reading. Chronic Conditions Patient?s care impacted by: Other (Cigarette smoking, recent travel.) Discharge Plan Discharge Clinical Impression: Atypical chest pain Patient Disposition: Home, Self-Care Instructions: Chest Pain (ED) Prescriptions: No Action cyclobenzaprine 10 mg tablet 10 mg PO TID PRN (Reason: pain) Qty: 15 0RF Rx Instructions: side effect is drowsiness. Do not take while driving or at work. naproxen 500 mg tablet 500 mg PO BID PRN (Reason: pain) Qty: 20 0RF ibuprofen 800 mg tablet 800 mg PO TID PRN (Reason: pain) Referrals: Rodger Chris MD [Primary Care Provider] - Print Language: Brazilian
--- NOTE | 2023-10-26 11:16 | PC.NURSE ---
pt a&o x4, calm, and cooperative. 20G IV placed to RAC. pt resting quietly, rr even/unlabored. call garcia within reach. plan of care ongoing.
[2023-10-26] MEDS: iohexoL 350 MG/ML 100 ML INFUS..BTL IV (12:33)
[2023-10-26 12:44] VITALS: BP 143/85; PULSE 66; RESP 15; TEMP 36.4; O2SAT 98
[2023-10-26 13:34] LABS: Troponin-I High Sensitivity < 2.7 ng/L (<3.5-35.0)
[2023-10-26 14:19] VITALS: BP 139/87; PULSE 65; RESP 16; TEMP 36.5; O2SAT 99
== END 2023-10-26 14:24 | disposition home or self-care (01) ==
PROVIDERS: Emergency Provider Emergency Medicine; PCP Internal Medicine
DX: R07.89 Other chest pain (principal); R60.0 Localized edema; M79.604 Pain in right leg; Z03.818 Encounter for observation for suspected exposure to other biological agents ruled out; Z79.899 Other long term (current) drug therapy
CPT/HCPCS: 0241U; 36415; 71046; 71275; 80048; 84484; 85025; 85379; 93005; 93971; 99284; 99285; Q9967

== ENCOUNTER → 2023-10-26 08:52 | Outpatient (BNV) | payer BC, SELFPAY | PROVIDERS: Emergency Provider Emergency Medicine; PCP Internal Medicine; Visit Provider Internal Medicine Cardiovascular Disease | DX: R07.9 Chest pain, unspecified (principal) | CPT/HCPCS: 93010 ==

== ENCOUNTER 2024-10-03 07:56 | Outpatient (REF) | payer BC, SELFPAY ==
--- NOTE | ~2024-10-03 | CT_ITS ---
CLINICAL HISTORY: F17.210 - Nicotine dependence, cigarettes, uncomplicated CT lung cancer screening (LDCT) Comparison: 10/26/2023, 04/28/2023, 12/24/2021 Technique: Axial CT images of the chest using low-dose technique. Referring provider counseled the patient on shared decision-making for LDCT screening. Additional counseling was provided on smoking cessation. Effective radiation dose total: DLP 32.6 mGycm, CTDIvol 0.9 mGy. Findings: Lung: Mild centrilobular emphysema. There are calcified granulomas. Stable 4.4 mm para fissural nodule of the left lower lobe series 4, image 81. Possible mucous in the trachea series 4, image 35. Coronary artery calcifications: Moderate Limited upper abdomen: Unremarkable Other: None Impression: LungRADS 2 - Benign Appearance: Continue annual screening with low dose Chest CT in 12 months. ##L2# Possible mucous within the trachea. Category 1: Normal; continue annual screening Category 2: Benign appearance or behavior, continue annual screening Category 3: Probably benign, [address] recommended Category 4A: Suspicious, [address] recommended; may consider PET/CT Category 4B: Suspicious, Additional diagnostics and/or tissue sampling recommended Category 4X: Suspicious, Additional diagnostics and/or tissue sampling recommended Category 0: Recalls (incomplete screen due to Incomplete coverage, Noise, Respiratory motion, Expiration, Obscured by acute abnormality) This document has been electronically signed by: Melanie Cochran MD on 10/03/2024 22:24:59
== END 2024-10-03 07:57 | disposition home or self-care (01) ==
LOC: HO.CT 07:56
PROVIDERS: Visit Provider Physician Assistant Medical
DX: Z12.2 Encounter for screening for malignant neoplasm of respiratory organs (principal); F17.210 Nicotine dependence, cigarettes, uncomplicated
CPT/HCPCS: 71271

== ENCOUNTER → 2024-10-03 07:59 | Outpatient (BNV) | payer BC, SELFPAY | PROVIDERS: Visit Provider Nuclear Medicine | DX: Z12.2 Encounter for screening for malignant neoplasm of respiratory organs (principal); F17.210 Nicotine dependence, cigarettes, uncomplicated | CPT/HCPCS: 71271 ==

== ENCOUNTER 2024-10-16 15:34 | Outpatient (AMB) | payer BC, SELFPAY ==
[2024-10-16 15:37] VITALS: BP 128/70; PULSE 76; TEMP 36.4; O2SAT 99; BMI 22.7
--- NOTE | 2024-10-16 15:37 | A.OFFPC_ITS ---
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 Father No problems noted. Social History Housing: House Alcohol intake: current Alcohol intake frequency: 3 or more drinks per day Alcohol type: beer Patient Tobacco Use Status: Current everyday Tobacco user Years Smoked: (onset 13yo, 1ppd x 43yrs, 40pyh) e-Cigarette/Vaping Use: Currently Using Substance Use Type: Marijuana Current occupational status: employed Cognitive needs: No Hearing needs: No Vision needs: Yes (reading glasses) Questionnaire PHQ-9 Over the last 2 weeks, how often have you been bothered by any of the following problems? 1. Little interest or pleasure in doing things: not at all 2. Feeling down, depressed, or hopeless: not at all 3. Trouble falling or staying asleep, or sleeping too much: not at all 4. Feeling tired or having little energy: not at all 5. Poor appetite or overeating: not at all 6. Feeling bad about yourself - or that you are a failure or have let yourself or your family down: not at all 7. Trouble concentrating on things, such as reading the newspaper or watching television: not at all 8. Moving or speaking so slowly that other people could have noticed. Or the opposite - being so fidgety or restless that you have been moving around a lot more than usual: not at all 9. Thoughts that you would be better off or of hurting yourself in some way: not at all Total score: 0 Source: Developed by Drs. Angel Pace, Christina Calloway, Leonel Galloway and colleagues, with an educational roxie from [employer]. Thrive Questionnaire Date Thrive assessed: 10/16/24 I am a: Patient Within the past 12 months, did the food you bought not last and you didn't have the money to get more?: Never true Within the past 12 months, did you worry whether your food would run out before you got money to buy more?: Never true Do you have trouble paying for medicines?: No Do you have trouble getting transportation to medical appointments?: No Do you have trouble paying your heating and electricity bill?: No Do you have trouble taking care of your child, family member or friend?: No Do you have trouble with day-to-day activities such as bathing, preparing meals, shopping, managing finances, etc.?: No Are you currently unemployed and looking for a job?: No Are you interested in more education?: No THRIVE Score: 0 AUDIT C Alcohol Use Questionnaire (AUDIT-C) 1. How often do you have a drink containing alcohol?: Monthly or less 2. How many drinks containing alcohol do you have on a typical day when you are drinking?: 1 or 2 3. How often do you have six or more drinks on one occasion?: Less than monthly Total Score: 2 TODD-7 AMB Questionnaire TODD-7 Date TODD - 7 assessed: 10/16/24 Feeling nervous, anxious, or on edge: 0 = Not at all Not being able to stop or control worryin = Not at all Worrying too much about different things: 0 = Not at all Trouble relaxin = Not at all Being so restless that it is hard to sit still: 0 = Not at all Becoming easily annoyed or irritable: 0 = Not at all Feeling afraid as if something awful might happen: 0 = Not at all Total TODD-7 score (0-4 normal; 5-9 mild; 10-14 moderate; 15-21 severe): 0 Source: Developed by Drs. Angel Pace, Christina Calloway, Leonel Galloway and colleagues, with an educational roxie from [employer]. Physical exam (Primary Care) Vital Signs: Last Vital Signs Temp 97.6 F 10/16/24 15:37 Pulse 76 10/16/24 15:37 BP 128/70 10/16/24 15:37 Pulse Ox 99 10/16/24 15:37 Oxygen Delivery Method Room Air 10/16/24 15:37 BMI result Body Mass Index 22.7 Tobacco/Smoking Status: Tobacco use Status Tobacco use date assessed 10/16/24 10/16/24 15:39 Patient Tobacco Use Status Current everyday Tobacco 10/16/24 15:39 e-Cigarette/Vaping Use Currently Using 10/16/24 15:39 PHQ-9: PHQ-9 Score PHQ-9: Total score 0 10/16/24 15:48 Thrive Assessment: Date of Thrive Assessment Date Thrive assessed 10/16/24 10/16/24 15:39 Coding Level of Care Code New Pt Level 4 (52780) Complex EM visit Add On G2211 Diagnoses Bilateral inguinal hernia K40.20 Nicotine dependence, cigarettes, uncomplicated F17.210 Assessment & Plan Assessment & Plan (1) Bilateral inguinal hernia: Code(s): K40.20 - Bilateral inguinal hernia, without obstruction or gangrene, not specified as recurrent Category: Medical Plan: Surgical consult requested. (2) Nicotine dependence, cigarettes, uncomplicated: Comment: (current smoker - onset 13yo, 1ppd x 45yrs, 40pyh) Code(s): F17.210 - Nicotine dependence, cigarettes, uncomplicated Category: Medical Plan: Counselled to quit smoking Plan History of Present Illness The patient is a 59-year-old male presenting with abdominal and testicular pain. The abdominal discomfort has been constant for over a year, varying in intensity from sharp to dull, and is accompanied by a sensation of the testicles being squeezed. The timeline for testicular pain onset appears to be shortly after the abdominal symptoms, increasing in severity more recently. Despite his symptoms, he denies vomiting or unintended weight loss while acknowledging a decreased jad etite and fatigue, impacting his usual dynamic lifestyle. He experiences urinary hesitancy, specifically difficulty urinating when sitting, with urgency intensifying upon standing. His history includes a longstanding inguinal hernia, which becomes palpable upon standing but has not previously caused notable discomfort. He smokes a pack of cigarettes daily and has maintained this habit for years. 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 - Substance Use: Smokes one pack of cigarettes daily. - Living Situation: , no specific details about family or other living arrangements provided. - Activity Level: Previously very active, up at 4 AM and on his feet until 10 PM, now notices a reduced drive. - Sleep: Reports insomnia?struggles with falling asleep due to an active mind, does not feel well-rested. Review of Systems - Gastrointestinal: Reports abdominal pain. - Genitourinary: Reports testicular pain; reports urinary hesitancy. - Constitutional: Reports a decrease in appetite and energy. - Neurological: Denies headaches. - Psychiatry: Reports insomnia, decreased energy. - Respiratory: Denies regular cough; denies dyspnea. - Eyes: Reports needing reading glasses but otherwise good vision. Physical Exam General: Cooperative and healthy appearing Nutritional Appearance: Well nourished Orientation/consciousness: Patient oriented x3 Limitations: No limitations Head: Normal to inspection General: Appearance normal, both eyes and all related structures Neck: Normal visual inspection Chest: Normal palpation of entire chest wall Respiratory: Normal respiratory effort Neurology: Patient oriented x3 Abd/Genital: Non reducible right inguinal hernia Results - Tests and Diagnostics: Annual CT scan of the lungs as part of a smoking program, with results not indicating any current issues. Plan The management plan will prioritize addressing the patient's abdominal and testicular pain, initiating further evaluation for his inguinal hernia, and potential urological causes for his urinary hesitancy. This may include referral for imaging and urological consultations. Smoking cessation should be advised to decrease associated health risks, and strategies for managing insomnia will be discussed, including potential behavioral or medicinal interventions. Regular follow-up appointments will be scheduled to monitor progress and response to any interventions. Patient was informed and verbally consented to the use of an ambient scribe for clinic note documentation during this visit. Discussion Notes During the consultation, I discussed potential causes for the patient's abdominal and testicular pain, including the possibility of contribution from his inguinal hernia. I suggested further diagnostic examinations may be required to ascertain the exact cause of symptoms and plan appropriate management. We also discussed lifestyle factors, particularly the importance of smoking cessation, and options for improving his sleep quality and managing insomnia. Patient Instructions - Follow recommended dietary and lifestyle modifications. - Consider smoking cessation efforts to improve health. - Monitor symptoms and report any escalation in pain or discomfort. - Attend follow-up appointments for reassessment and further evaluation. - Implement strategies to improve sleep hygiene and address insomnia. - Maintain regular health check-ups and screenings as part of ongoing health maintenance. Orders: Orders Basic Metabolic Panel 10/17/24 F17.210 - Nicotine dependence, cigarettes, uncomplicated, K40.20 - Bilateral inguinal hernia, without obstruction or gangrene, not specified as recurrent Liver Panel 10/17/24 F17.210 - Nicotine dependence, cigarettes, uncomplicated, K40.20 - Bilateral inguinal hernia, without obstruction or gangrene, not specified as recurrent UA and rflx microscopic 10/17/24 F17.210 - Nicotine dependence, cigarettes, uncomplicated, K40.20 - Bilateral inguinal hernia, without obstruction or gangrene, not specified as recurrent Complete Blood Count no Diff 10/17/24 F1.210 - Nicotine dependence, cigarettes, uncomplicated, K40.20 - Bilateral inguinal hernia, without obstruction or gangrene, not specified as recurrent Lipid Panel 10/17/24 F17.210 - Nicotine dependence, cigarettes, uncomplicated, K40.20 - Bilateral inguinal hernia, without obstruction or gangrene, not specified as recurrent Thyroid Stimulating Hormone 10/17/24 F17.210 - Nicotine dependence, cigarettes, uncomplicated, K40.20 - Bilateral inguinal hernia, without obstruction or gangrene, not specified as recurrent Referrals General Surgery Referral K40.20 - Bilateral inguinal hernia, without obstruction or gangrene, not specified as recurrent
== END 2024-10-16 16:05 | disposition home or self-care (01) ==
LOC: HO.HMCHD 15:34
PROVIDERS: PCP Internal Medicine; Visit Provider Internal Medicine
DX: K40.20 Bilateral inguinal hernia, without obstruction or gangrene, not specified as recurrent (principal); F17.210 Nicotine dependence, cigarettes, uncomplicated

== ENCOUNTER → 2024-10-16 15:34 | Outpatient (BNVA) | payer BC, SELFPAY | PROVIDERS: PCP Internal Medicine; Visit Provider Internal Medicine | DX: Z13.89 Encounter for screening for other disorder (principal) ==

== ENCOUNTER 2024-10-17 08:18 | Outpatient (REF) | payer BC, SELFPAY ==
[2024-10-17 10:21] LABS: Hematocrit 46.5 % (42.0-52.0); Hemoglobin 15.5 g/dl (14.0-18.0); Mean Corpuscular HGB Conc 33.3 g/dl (31.0-36.0); Mean Corpuscular Hemoglobin 32.3 pg (27.0-33.0); Mean Corpuscular Volume 96.9 fL (80.0-98.0); Mean Platelet Volume 9.7 fL (9.4-12.4); Platelet Count 264 X10*3/uL (160-400); Red Cell Distribution Width 14.5 % (11.0-16.0); White Blood Count 9.5 X10*3/uL (4.8-10.8)
[2024-10-17 11:08] LABS: Alanine Aminotransferase 27 U/L (0-40); Albumin Level 4.1 g/dL (3.5-5.0); Anion Gap 11 (12-20); Aspartate Amino Transferase 26 U/L (5-37); Bilirubin Direct 0.2 mg/dL (0.0-0.5); Bilirubin Total 0.7 mg/dL (0.0-1.0); Blood Urea Nitrogen 12 mg/dL (9-16); Calcium 9.5 mg/dL (8.4-10.2); Carbon Dioxide 28 mmol/L (22-29); Chloride 106 mmol/L (96-108); Cholesterol 187 mg/dL (<200); Estimated Glomerular Filt Rate > 60; Glucose Random 83 mg/dL (60-115); HDL Cholesterol 56 mg/dL (>40); LDL Cholesterol Calculated 123 mg/dL (<100); Potassium 4.5 mmol/L (3.3-5.1); Sodium 140 mmol/L (135-145); Triglycerides 41 mg/dL (<150)
[2024-10-17 11:18] LABS: Alkaline Phosphatase 54 U/L (39-117); Thyroid Stimulating Hormone 1.38 uIU/mL (0.32-4.0)
[2024-10-17 11:46] LABS: Appearance Urine Clear; Color Urine Yellow; Glucose Urine UA Negative (Negative); Leukocyte Esterase Urine Negative (Negative); Nitrite Urine Negative (Negative); Specific Gravity - Urine 1.015 (1.005-1.025); UMIC TRIGGER UA YES; Urine Blood Trace (Negative); Urine Ketones Negative (Negative); Urine Protein Negative (Neg-Trace)
[2024-10-17 11:49] LABS: Bacteria Urine None Seen (None Seen); Hyaline Casts Urine 0-2 /LPF (0-2); Squamous Epithelial Cell Urine 0-2 /HPF (0-2); WBC Urine 0-5 /HPF (0-5)
== END 2024-10-17 08:19 | disposition home or self-care (01) ==
LOC: HO.LAB 08:18
PROVIDERS: PCP Internal Medicine; Visit Provider Internal Medicine
DX: Z13.6 Encounter for screening for cardiovascular disorders (principal); K40.20 Bilateral inguinal hernia, without obstruction or gangrene, not specified as recurrent; F17.210 Nicotine dependence, cigarettes, uncomplicated
CPT/HCPCS: 36415; 80048; 80061; 80076; 81001; 84443; 85027

== ENCOUNTER 2024-11-07 12:39 | Outpatient (AMB) | payer BC, SELFPAY ==
--- NOTE | 2024-11-07 13:07 | MHC.OFFVIS ---
Vital Signs 11/07/24 13:13 Height 5 ft 7 in Weight 148 lb 2 oz BMI 23.2 BP 132/75 Blood Pressure Location Lt brachial Position Sitting Pulse 76 Intake Visit Reasons: Bilateral inguinal hernia, Intake Note: Patient is seen in office for evaluation of a bilateral inguinal hernias. Pt c/o: right groin lump, onset 2 yrs, reducible, started to get painful, denies n/v/d/c, no prior imaging Physiotherapy Assistant Required: No Accompanied by: Self / Same As Patient Allergies No Known Allergies Allergy (Verified 11/07/24 13:12) HPI Comments Details: 59-year-old male patient presenting with a palpable right inguinal hernia noted proximally 3 years ago. He was previously evaluated 2 years ago and since this time the hernia has increased in severity of pain but he denies any increase in the size of the hernia. He denies any nausea or vomiting but does report some pain extending into the testicle. He denies constipation or diarrhea. He denies needing to perform heavy lifting at work. He denies any previous history of hernia surgery. He denies any inciting events but noted the lump at that time. [facility] Medical History Nicotine dependence, cigarettes, uncomplicated History of colon polyps Surgical History History of cystoscopy History of colonoscopy (~08/26/16) Family History Mother No problems noted. Father No problems noted. Social History Housing: House Alcohol intake: current Alcohol intake frequency: 3 or more drinks per day Alcohol type: beer Patient Tobacco Use Status: Current everyday Tobacco user Years Smoked: (onset 13yo, 1ppd x 43yrs, 40pyh) e-Cigarette/Vaping Use: Currently Using Substance Use Type: Marijuana Current occupational status: employed Cognitive needs: No Hearing needs: No Vision needs: Yes (reading glasses) Review of Systems Const Denies chills, Denies fever(s), Denies headache(s) and Denies poor appetite ENT Denies dizziness and Denies headache(s) Card Denies chest pain, Denies rapid heart rate, Denies palpitations and Denies slow heart rate Resp Denies chest congestion, Denies cough, Denies pain on inspiration and Denies wheezing GI Reports as per HPI, Denies abdominal pain, Denies bloating, Denies change in stool character, Denies constipation, Denies diarrhea, Denies nausea, Denies vomiting and Denies hematemesis Denies dysuria and Denies urinary frequency Musc Denies back pain, Denies arthralgias, Denies joint swelling and Denies numbness Skin/Breast Denies change in pigmentation, Denies erythema and Denies rash Neuro Denies dizziness, Denies headache(s) and Denies numbness Psych Denies anxiety and Denies depression Endo Denies palpitations Chip/Lymph Denies easy bleeding, Denies easy bruising and Denies lymphadenopathy Aller/Immun Denies wheezing Physical Exam Const General: cooperative, comfortable and well developed Nutritional Appearance: well nourished Orientation/consciousness: patient oriented x3 Eyes Sclerae: sclerae normal EOM: EOMs intact bilaterally Neck Neck: Yes normal visual inspection Resp Effort & Inspection: normal respiratory effort, no cough, no respiratory distress and no stridor Cardio Jugular venous distension: no JVD GI Inspection: Yes normal to inspection Palpation (GI): Soft to palpation, nontender, no guarding, not rigid and Hernia present direct inguinal (Right greater than left, easily reducible, nontender) bilateral Abdomen image: 1. Large right inguinal hernia, reducible with light pressure. 2. Smaller left inguinal hernia reducible with light pressure Skin General skin exam: no rashes or lesions noted Neuro General: patient oriented x3 and no focal motor deficits Extrem General: Yes full ROM and Yes no clubbing, cyanosis or edema Psych Appearance: grossly normal Assessment & Plan Assessment & Plan (1) Bilateral inguinal hernia: Code(s): K40.20 - Bilateral inguinal hernia, without obstruction or gangrene, not specified as recurrent Category: Medical Qualifiers: Obstruction and gangrene presence: without obstruction or gangrene Recurrence: non-recurrent Qualified Code(s): K40.20 - Bilateral inguinal hernia, without obstruction or gangrene, not specified as recurrent Plan 59-year-old male patient presenting with complaints of pain in the right groin extending into the testicle. He was previously evaluated and determined to have bilateral inguinal hernias. Since this time the hernias have become more symptomatic. On examination he still has a reducible bilateral inguinal hernias. I recommended repair of the bilateral hernias given the increased symptoms. After discussion of the procedure, risks, and alternatives, he consents to a bilateral inguinal hernia repair with mesh. He will be scheduled as a short-stay surgery. Coding Level of Care Code Est Pt Level 4 (18425) Diagnoses Non-recurrent bilateral inguinal hernia without obstruction or gangrene K40.20 Obstruction and gangrene presence: without obstruction or gangrene Recurrence: non-recurrent
[2024-11-07 13:13] VITALS: BP 132/75; PULSE 76; BMI 23.2
== END 2024-11-07 13:25 | disposition home or self-care (01) ==
LOC: HO.HGS 12:40
PROVIDERS: PCP Internal Medicine; Visit Provider Surgery
DX: K40.20 Bilateral inguinal hernia, without obstruction or gangrene, not specified as recurrent (principal)
CPT/HCPCS: 99214

== ENCOUNTER 2024-11-15 05:26 | Inpatient (IN) | payer BC, SELFPAY ==
[2024-11-15] VITALS (12 sets, daily range): BP systolic 119–158; BP diastolic 63–85; PULSE 66–88; RESP 14–24; TEMP 36.2–37.7; O2SAT 96–100; BMI 21.9; BMI 23.5
--- NOTE | ~2024-11-15 | CT_ITS ---
EXAMINATION: CT ABDOMEN PELVIS WITH IV CONTRAST HISTORY: pain in the right lower abd COMPARISON: Comparison is made with the prior examination dated 07/14/2020. TECHNIQUE: CT scan of the abdomen and pelvis was performed following administration of 85 mL Omnipaque 350 using standard departmental protocol. Coronal and sagittal reformatted images were generated and reviewed. The patient received oral contrast material. This CT exam was performed with one or more of the following dose reduction techniques: automated exposure control, adjustment of the mA and/or kV according to patient size, use of iterative reconstruction technique. DLP: 365 mGy-cm FINDINGS: LOWER CHEST: There is mild dependent atelectasis at the lung bases.. There is no pleural effusion. CARDIOVASCULATURE: The heart is normal in size. There is no pericardial effusion. LIVER: The liver is normal in size and contour. No liver mass is identified. The hepatic and portal veins are patent. GALLBLADDER / BILE DUCTS: The gallbladder is unremarkable. There is no intra or extrahepatic biliary ductal dilatation. SPLEEN: The spleen is normal in size. No focal splenic lesion is identified. PANCREAS: The pancreas is unremarkable in appearance. ADRENAL GLANDS: Within normal limits. KIDNEYS/RETROPERITONEUM: No renal calculi are identified. There is no hydronephrosis. There is a 1.3 cm cyst in the interpolar region of the left kidney. LYMPH NODES: No abdominal or pelvic lymphadenopathy. VASCULATURE: The abdominal aorta demonstrates atherosclerotic calcification, but is normal in caliber. MESENTERY/PERITONEUM: No free fluid. No masses. There is no free intraperitoneal gas. The upper abdomen. STOMACH: The stomach is collapsed, limiting evaluation. SMALL BOWEL: The small bowel is normal in caliber. COLON: There is diverticulosis of the descending and sigmoid colon. There is marked wall thickening of a short segment of the proximal sigmoid colon with surrounding inflammatory stranding. There is a large amount of extraluminal gas lateral to this inflamed loop of sigmoid colon, which extends superiorly into the retroperitoneum anterior to the left psoas muscle. There is no associated fluid collection. APPENDIX: Normal. URINARY BLADDER/PELVIC ORGANS: The urinary bladder is collapsed, limiting evaluation. The prostate is normal in size. BONES / SOFT TISSUES: There is a small fat-containing inguinal hernia. There is marked degenerative disc disease of the spine. CT/CT abdomen pelvis w IV con IMPRESSION: Inflamed short segment of sigmoid colon which demonstrates wall thickening and multiple diverticuli. There is a large amount of associated extraluminal gas as described, consistent with bowel perforation. Findings are most compatible with perforated diverticulitis or perforated carcinoma. Follow-up sigmoidoscopy is recommended. These findings were discussed with Dr. Coto in the Emergency Room on 11/15/2024 at 10:53 AM. Electronically signed by: Angel Adhikari MD 11/15/2024 10:57 AM EDT
[2024-11-15 05:53] LABS: Basophils Absolute Auto 0.1 X10*3/uL (0.0-0.2); Eosinophils Absolute Auto 0.6 X10*3/uL (0.0-0.4); Eosinophils Percent Auto 4.9 % (0-4); Hematocrit 44.2 % (42.0-52.0); Hemoglobin 15.4 g/dl (14.0-18.0); Imm Gran Abs Auto 0.07 X10*3/uL (0.00-0.03); Imm Gran Pct Auto 0.6 % (0.0-0.4); Lymphocytes Absolute Auto 1.6 X10*3/uL (1.2-4.9); Lymphocytes Percent Auto 13.2 % (20-40); MANUAL DIFF FLAG NO; Mean Corpuscular HGB Conc 34.8 g/dl (31.0-36.0); Mean Corpuscular Volume 91.9 fL (80.0-98.0); Monocytes Absolute Auto 1.1 X10*3/uL (0.1-1.2); Monocytes Percent Auto 8.8 % (2-11); Neutrophils Absolute Auto 8.9 x10*3/uL (2.0-8.3); Neutrophils Percent Auto 71.5 % (45-73); Platelet Count 258 X10*3/uL (160-400); Red Blood Count 4.81 X10*6/uL (4.60-5.80); Red Cell Distribution Width 13.8 % (11.0-16.0); White Blood Count 12.4 X10*3/uL (4.8-10.8)
[2024-11-15 06:14] LABS: Alanine Aminotransferase 20 U/L (0-40); Alkaline Phosphatase 61 U/L (39-117); Anion Gap 12 (12-20); Aspartate Amino Transferase 22 U/L (5-37); Bilirubin Total 1.2 mg/dL (0.0-1.0); Blood Urea Nitrogen 13 mg/dL (9-16); Calcium 9.6 mg/dL (8.4-10.2); Carbon Dioxide 26 mmol/L (22-29); Chloride 103 mmol/L (96-108); Creatinine Clr Calc Pharmacy 97.7; Estimated Glomerular Filt Rate > 60; Glucose Random 126 mg/dL (60-115); Potassium 4.3 mmol/L (3.3-5.1); Sodium 137 mmol/L (135-145); Total Protein 7.2 g/dL (6.5-8.0)
--- NOTE | 2024-11-15 07:25 | ED.ABDPAIN ---
HPI - Abdominal Pain General Chief Complaint: Abdominal Pain Stated Complaint: hernia Time Seen by Provider: 11/15/24 07:12 History of Present Illness HPI narrative: 59-year-old male with a long history of having pain to the lower abdomen has a history of inguinal hernia was scheduled for surgery in December. Presented today with having some nausea vomiting and pain. Patient's claims the pain comes and goes. It is associated with a bulge in the lower abdomen mainly on the right side. Worse with standing up or bearing down improved with lying down. Patient from home. One episode of nausea vomiting today. There is no fever. Passing gas positive bowel movement patient from home. No other abdominal surgery done in the past Related Data Home Medications ?Medication ?Instructions ?Recorded ?Confirmed ibuprofen 800 mg tablet 800 mg PO TID PRN pain 11/19/21 11/19/21 Allergies Allergy/AdvReac Type Severity Reaction Status Date / Time No Known Allergies Allergy Verified 11/15/24 05:31 Review of Systems Review of Systems Positive abdominal pain PMFSH Past Medical History Attestation statement: The following information was validated with the patient. Medical History Nicotine dependence, cigarettes, uncomplicated History of colon polyps Surgical History History of cystoscopy History of colonoscopy (~08/26/16) Family History Family History Mother No problems noted. Father No problems noted. Social History Social History Housing: House Alcohol intake: current Alcohol intake frequency: 3 or more drinks per day Alcohol type: beer Patient Tobacco Use Status: Current everyday Tobacco user Years Smoked: (onset 13yo, 1ppd x 43yrs, 40pyh) e-Cigarette/Vaping Use: Currently Using Substance Use Type: Marijuana Current occupational status: employed Cognitive needs: No Hearing needs: No Vision needs: Yes (reading glasses) Physical Exam ED Vital Signs: Vital Signs - 24 hr 11/15/24 05:29 11/15/24 05:40 11/15/24 08:30 Temperature 97.6 F 97.6 F Pulse Rate 66 66 Respiratory Rate 18 18 14 Blood Pressure 144/83 H 144/83 H Pulse Oximetry 100 100 98 Oxygen Delivery Method Room Air Room Air Room Air 11/15/24 10:24 Temperature 97.2 F Pulse Rate 71 Respiratory Rate 14 Blood Pressure 135/77 Pulse Oximetry 99 Oxygen Delivery Method Room Air BMI result Body Mass Index 21.9 Appearance: Alert. Oriented X3. No acute distress. Neck: Normal inspection. Neck supple. No lymph nodes noted. No crepitus CVS: Normal heart rate and rhythm. Pulses normal. Normal S1 and S2 Respiratory: No respiratory distress. Breath sounds normal. No Wheezing. No rales Abdomen: Soft and nontender. No rigidity. No distention. good BS x4. Positive inguinal hernia noted on the right side fairly reducible. No testicular tenderness noted on palpation. No CVA tenderness. Skin: Skin warm and dry. Normal skin color. Normal skin turgor. Extremities: No lower extremity edema. Neurovascular intact to all extremities. No Lacerations. No Rash Neuro: Oriented X 3. No motor deficit. No sensory deficit. Moving all extermities. No slurred speech Medical Decision Making Medical Decision Making [facility] Narrative: Patient is 59-year-old male presents today with having abdominal pain. History of hernia in the past. White count was 12. CT scan was done. Lactate was normal. CT was positive for having perforated diverticulitis antibiotic was started. Rocephin x2 g Flagyl. Surgery was consulted. I discussed the case with the radiologist about the CT scan finding. Patient will be going to the OR. Differential Diagnosis Differential Diagnoses: The differential diagnosis associated with the presentation includes Diverticulitis, hernia, colonic mass Admission/Observation Consideration of admission/observation: Escalation of care including admission/observation considered Consult Healthcare Provider Management of the patient was discussed with: Tubing Oiler (Surgery) Lab Data [facility] Lab Attestation statement: I reviewed the patient's lab results. 11/15/24 05:49 11/15/24 05:49 Labs: Lab Results 11/15/24 11/15/24 11/15/24 Range/Units 05:49 07:45 10:27 WBC 12.4 H (4.8-10.8) X10*3/uL RBC 4.81 (4.60-5.80) X10*6/uL Hgb 15.4 (14.0-18.0) g/dl Hct 44.2 (42.0-52.0) % MCV 91.9 (80.0-98.0) fL MCH 32.0 (27.0-33.0) pg MCHC 34.8 (31.0-36.0) g/dl RDW 13.8 (11.0-16.0) % Plt Count 258 (160-400) X10*3/uL MPV 9.0 L (9.4-12.4) fL Immature Gran % (Auto) 0.6 H (0.0-0.4) % Neut % (Auto) 71.5 (45-73) % Lymph % (Auto) 13.2 L (20-40) % Ward % (Auto) 8.8 (2-11) % Eos % (Auto) 4.9 H (0-4) % Baso % (Auto) 1.0 (0-2) % Lymph # (Auto) 1.6 (1.2-4.9) X10*3/uL Ward # (Auto) 1.1 (0.1-1.2) X10*3/uL Eos # (Auto) 0.6 H (0.0-0.4) X10*3/uL Baso # (Auto) 0.1 (0.0-0.2) X10*3/uL Abs Immat Gran (auto) 0.07 H (0.00-0.03) X10*3/uL Absolute Neuts (auto) 8.9 H (2.0-8.3) x10*3/uL Absolute Nucleated RBC 0.000 (0.0-0.012) X10*3/uL Nucleated RBC % (auto) 0.0 (0.0-0.2) /100WBC Sodium 137 (135-145) mmol/L Potassium 4.3 (3.3-5.1) mmol/L Chloride 103 (96-108) mmol/L Carbon Dioxide 26 (22-29) mmol/L Anion Gap 12 (12-20) BUN 13 (9-16) mg/dL Creatinine 0.74 (0.5-1.4) mg/dL Estim Creat Clear Calc 97.7 Estimated GFR > 60 Random Glucose 126 H (60-115) mg/dL Lactic Acid 0.7 (0.5-2.0) mmol/L Calcium 9.6 (8.4-10.2) mg/dL Total Bilirubin 1.2 H (0.0-1.0) mg/dL AST 22 (5-37) U/L ALT 20 (0-40) U/L Alkaline Phosphatase 61 (39-117) U/L Total Protein 7.2 (6.5-8.0) g/dL Albumin 4.0 (3.5-5.0) g/dL Urine Color Yellow Urine Appearance Clear Urine pH 6.0 (5.0-9.0) Ur Specific [place] 1.010 (1.005-1.025) Urine Protein Negative (Neg-Trace) mg/dL Urine Glucose (UA) Negative (Negative) mg/dL Urine Ketones Negative (Negative) mg/dL Urine Blood Small (1+) H (Negative) Urine Nitrite Negative (Negative) Ur Leukocyte Esterase Negative (Negative) Urine RBC 0-2 (0-2) /HPF Urine WBC 0-5 (0-5) /HPF Ur Squamous Epith Cells 0-2 (0-2) /HPF Urine Bacteria None Seen (None Seen) Hyaline Casts 0-2 (0-2) /LPF Independent Interpretation I performed an independent interpretation of an: CT Scan (Perforated bowel) Radiology Impression Discussion of test interpretation with radiology: I discussed test interpretation with the radiologist and I have reviewed the radiologist's reading. Medications Administered Discontinued Medications Generic Name Dose Route Start Last Admin Trade Name Freq PRN Reason Stop Dose Admin Barium Sulfate 900 ml 11/15/24 10:33 11/15/24 10:33 Barium Sulfate Oral (Jacobo) 450 Ml Oral.Susp PO 11/15/24 10:34 900 ml ONCE ONE Administration Sodium Chloride 1,000 mls @ 999 mls/hr 11/15/24 07:30 11/15/24 09:34 Ns IV 11/15/24 08:30 Infused .Q1H1M WALT Infusion Iohexol 100 ml 11/15/24 10:34 11/15/24 10:34 Iohexol 350 Mg/Ml 100 Ml Infus..Btl IV 11/15/24 10:35 85 ml ONCE ONE Administration Ketorolac Tromethamine 15 mg 11/15/24 07:23 11/15/24 08:00 Ketorolac Tromethamine 15 Mg/Ml Vial IVPUSH 05/16/25 07:24 15 mg ONCE ONE Administration Ondansetron HCl 4 mg 11/15/24 07:23 11/15/24 08:00 Ondansetron Hcl 4 Mg/2 Ml Vial IVPUSH 11/15/24 07:24 4 mg ONCE ONE Administration Discharge Plan Discharge Clinical Impression: Diverticulitis Patient Disposition: Admitted As Inpatient Prescriptions: No Action ibuprofen 800 mg tablet 800 mg PO TID PRN (Reason: pain) Print Language: [place]
[2024-11-15] MEDS: ondansetron HCL 4 MG/2 ML VIAL IVPUSH (08:00)
[2024-11-15] MEDS: Ketorolac Tromethamine 15 MG/ML VIAL IVPUSH ×2 (08:00→18:26)
[2024-11-15] MEDS: 0.9 % Sodium Chloride 1,000 ML 999 ML IV (08:00)
[2024-11-15 08:13] LABS: Lactic Acid 0.7 mmol/L (0.5-2.0)
[2024-11-15] MEDS: Barium Sulfate Oral (Berry) 450 ML ORAL.SUSP 900 ML PO (10:33)
[2024-11-15] MEDS: iohexoL 350 MG/ML 100 ML INFUS..BTL IV (10:34)
[2024-11-15 10:36] LABS: Appearance Urine Clear; Color Urine Yellow; Glucose Urine UA Negative (Negative); Leukocyte Esterase Urine Negative (Negative); Nitrite Urine Negative (Negative); UMIC TRIGGER UACC YES; Urine Blood Small (1+) (Negative); Urine Ketones Negative (Negative); Urine Protein Negative (Neg-Trace)
[2024-11-15 10:49] LABS: Bacteria Urine None Seen (None Seen); Hyaline Casts Urine 0-2 /LPF (0-2); RBC Urine 0-2 /HPF (0-2); Squamous Epithelial Cell Urine 0-2 /HPF (0-2); WBC Urine 0-5 /HPF (0-5)
--- NOTE | 2024-11-15 11:18 | PM.HPGS ---
History of Present Illness History of Present Illness Date of Service: 11/15/24 <Chuy Ferris PA-C - Last Filed: 11/15/24 12:49> 11/15/24 <Rodger Gilliam MD - Last Filed: 11/15/24 12:42> Chief complaint: perforated diverticulitis <Chuy Ferris PA-C - Last Filed: 11/15/24 12:49> Narrative: Rene Márquez is a 59 year old male with a history of bilateral inguinal hernias, hyperplastic colon polyp, diverticulosis, nicotine dependence and chronic alcohol use presenting with his to the emergency department with a 1 week history of lower abdominal pain that acutely worsened overnight. He denies fever, chills, diarrhea, n/v. He attempted to go to work but was unable to do so. Patient reports he originally believed that this pain was associated with his hernias. He denies history of abdominal surgery. Most recent colonoscopy 2016, which showed sigmoid diverticulitis and rectal polyp. Patient endorses daily alcohol use, about 6 beers per day. He takes 800 mg of ibuprofen daily for pain, denies any other daily medications. Denies any additional chronic medical conditions. <Chuy Ferris PA-C - Last Filed: 11/15/24 12:49> Review of Systems Review of Systems: Yes all other systems are reviewed and are negative <Chuy Ferris PA-C - Last Filed: 11/15/24 12:49> [facility]LY [facility] Past Medical History Medical History: Medical History Nicotine dependence, cigarettes, uncomplicated History of colon polyps <Chuy Ferris PA-C - Last Filed: 11/15/24 12:49> Family History Family History: Family History Mother No problems noted. Father No problems noted. <Chuy Ferris PA-C - Last Filed: 11/15/24 12:49> Surgical History Surgical History: Surgical History History of cystoscopy History of colonoscopy (~08/26/16) <Chuy Ferris PA-C - Last Filed: 11/15/24 12:49> Social History Social History: Social History Housing: House Alcohol intake: current Alcohol intake frequency: 3 or more drinks per day Alcohol type: beer Patient Tobacco Use Status: Current everyday Tobacco user Tobacco use type: Cigarette Cigarettes Per Day: 10 Years Smoked: (onset 13yo, 1ppd x 43yrs, 40pyh) e-Cigarette/Vaping Use: Currently Using Substance Use Type: Marijuana Current occupational status: employed Cognitive needs: No Hearing needs: No Vision needs: Yes (reading glasses) <Chuy Ferris PA-C - Last Filed: 11/15/24 12:49> Meds Allergies/Adverse reactions: Allergies Allergy/AdvReac Type Severity Reaction Status Date / Time No Known Allergies Allergy Verified 11/15/24 05:31 <Chuy Ferris PA-C - Last Filed: 11/15/24 12:49> Active Medications: Current Medications Metronidazole (Flagyl) 500 mg in 100 mls @ 100 mls/hr IV ONCE ONE Stop: 11/15/24 11:50 <Chuy Ferris PA-C - Last Filed: 11/15/24 12:49> Home medications: Home Medications ?Medication ?Instructions ?Recorded ?Confirmed ?Last Taken ?Type ibuprofen 800 mg tablet 800 mg PO TID PRN pain 11/19/21 11/19/21 Unknown History <Chuy Ferris PA-C - Last Filed: 11/15/24 12:49> Physical Exam Vital Signs: Vital Signs: Last Vital Signs Temp 97.2 F 11/15/24 10:24 Pulse 71 11/15/24 10:24 Resp 14 11/15/24 10:24 BP 135/77 11/15/24 10:24 Pulse Ox 99 11/15/24 10:24 O2 Del Method Room Air 11/15/24 10:24 BMI result Body Mass Index 21.9 <CAROLINA Cazares Last Filed: 11/15/24 12:49> Const: General: no acute distress, alert and awake <CAROLINA Cazares Last Filed: 11/15/24 12:49> Orientation/consciousness: patient oriented x3 <CAROLINA Cazares Last Filed: 11/15/24 12:49> Resp: Effort & Inspection: normal respiratory effort and able to speak in complete sentences <CAROLINA Cazares Last Filed: 11/15/24 12:49> GI: Inspection: No distended <CAROLINA Cazares Last Filed: 11/15/24 12:49> Palpation (GI): Soft to palpation, not firm, Tenderness to palpation present (GI) (lower abdominal), no guarding, not rigid and No Rebound tenderness present <CAROLINA Cazares Last Filed: 11/15/24 12:49> Neuro: General: patient oriented x3 <CAROLINA Cazares Last Filed: 11/15/24 12:49> Results Results Labs: Short CBC 11/15/24 Range/Units 05:49 WBC 12.4 H (4.8-10.8) X10*3/uL Hgb 15.4 (14.0-18.0) g/dl Hct 44.2 (42.0-52.0) % Plt Count 258 (160-400) X10*3/uL BMP 11/15/24 05:49 Sodium 137 Potassium 4.3 Chloride 103 Carbon Dioxide 26 BUN 13 Creatinine 0.74 Calcium 9.6 Liver Function 11/15/24 Range/Units 05:49 Total Bilirubin 1.2 H (0.0-1.0) mg/dL AST 22 (5-37) U/L ALT 20 (0-40) U/L Alkaline Phosphatase 61 (39-117) U/L Albumin 4.0 (3.5-5.0) g/dL Urine 11/15/24 Range/Units 10:27 Urine Color Yellow Urine Appearance Clear Urine pH 6.0 (5.0-9.0) Ur Specific [place] 1.010 (1.005-1.025) Urine Protein Negative (Neg-Trace) mg/dL Urine Glucose (UA) Negative (Negative) mg/dL <CAROLINA Cazares Last Filed: 11/15/24 12:49> Assessment and Plan (1) Perforation of sigmoid colon: Status: Acute <CAROLINA Cazares Last Filed: 11/15/24 12:49> 59-year-old male with note of severe abdominal pain since early this morning He does admit to having had some low intensity pain for the past week Abdomen tender on lower abdomen CAT scan reviewed - diverticulitis of sigmoid with large amounts of extraluminal air surrounding this consistent with perforation I therefore explained to the patient that it will be best to proceed with assisted laparoscopic sigmoid resection, likely colostomy, possible open I reviewed with him the risks of this procedure including but not limited to bleeding, infections, injury to other organs including bowel, urinary tract, stoma complications I reviewed with him what to expect postoperatively including care of the ostomy He has given consent His Nguyen was with him during the discussion The patient is a heavy drinker, usually 6 beers a night; he admits to drinking last night as well <Rodger Gilliam MD - Last Filed: 11/15/24 12:42> (2) Diverticulitis: Status: Acute <Chuy Ferris PA-C - Last Filed: 11/15/24 12:49> 59 year old male with a history of bilateral inguinal hernias, hyperplastic colon polyps, diverticulosis, nicotine dependence and chronic alcohol use presenting with his to the emergency department with a 1 week history of lower abdominal pain that acutely worsened overnight. CT was performed, radiology report as follows: Inflamed short segment of sigmoid colon which demonstrates wall thickening and multiple diverticuli. There is a large amount of associated extraluminal gas as described, consistent with bowel perforation. Findings are most compatible with perforated diverticulitis or perforated carcinoma . I personally reviewed the imaging, showing moderate amounts of free air in the abdomen and inflammatory changes in the sigmoid colon. Due to the amount of air in the abdomen it was recommended that we proceed with surgical intervention. The patient was found to have slight leukocytosis on labs, flagyl was started by the ED. We discussed options for management with the patient and his partner, such as exploratory laparotomy versus observation and ultimately decided to proceed with surgical intervention with hand assisted laparoscopic sigmoid resection and ostomy creation. We discussed risks such as, bleeding, infection, infection, injury to surrounding organs. Patient is agreeable to this plan. continue ABX pain management IVF Plan for hand assisted laparoscopic sigmoid resection this afternoon with Dr. Gilliam <Chuy Ferris PA-C - Last Filed: 11/15/24 12:49> Quality Stroke Does the patient have a stroke diagnosis?: No <Chuy Ferris PA-C - Last Filed: 11/15/24 12:49> VTE Prior VTE?: No <Chuy Ferris PA-C - Last Filed: 11/15/24 12:49> VTE Risk Level:: Surgical - moderate <Chuy Ferris PA-C - Last Filed: 11/15/24 12:49> VTE Device Contraindication: N/A - Device Ordered <Chuy Ferris PA-C - Last Filed: 11/15/24 12:49> VTE Drug Contraindication: Treatment Not Indicated <Chuy Ferris PA-C - Last Filed: 11/15/24 12:49> Procedures Date of Service Date of Service: 11/15/24 <Chuy Ferris PA-C - Last Filed: 11/15/24 12:49> 11/15/24 <Rodger Gilliam MD - Last Filed: 11/15/24 12:42>
--- NOTE | 2024-11-15 11:36 | P.CONHOSP_ITS ---
History of Present Illness Data of Consult Service Date: 11/15/24 Primary Care Provider: Unknown Physician HPI Reason for consult: Medical management The pt is a 59-year-old male with a PMH significant for bilateral inguinal hernias, alcohol dependence, and nicotine dependence not on home meds who was admitted to the hospital under general surgery services for perforated sigmoid diverticulitis. Hospitalist consult for medical management. Pt currently experiencing primarily LLQ abdominal pain as well as testicular discomfort. Pt has been experiencing intermittent abdominal and testicular pain past few months. Recently saw PCP on 10/16 for evaluation and was referred to General surgery for possible inguinal repair. Abdominal pain worsened last night and pt developed nausea and vomiting which brought him to the ED for further evaluation where imaging showed perforated diverticula. Pt reports follows with his PCP regularly, and has no other medical diagnoses and not on home medication. Does reports smoking 1 pack daily, as well as drinking 6-8 beers daily. Denies hx of alcohol withdrawal. Denies tremors, diaphoresis, headache, tactile disturbances, auditory or visual hallucinations. Currently no nausea or vomiting. Review of Systems 2 Review of Systems: Negative except for that which is stated in the HPI. [facility] Medical History Nicotine dependence, cigarettes, uncomplicated History of colon polyps Family History Mother No problems noted. Father No problems noted. Surgical History History of cystoscopy History of colonoscopy (~08/26/16) Social History Housing: House Alcohol intake: current Alcohol intake frequency: 3 or more drinks per day Alcohol type: beer Patient Tobacco Use Status: Current everyday Tobacco user Tobacco use type: Cigarette Cigarettes Per Day: 10 Years Smoked: (onset 13yo, 1ppd x 43yrs, 40pyh) e-Cigarette/Vaping Use: Currently Using Substance Use Type: Marijuana Current occupational status: employed Cognitive needs: No Hearing needs: No Vision needs: Yes (reading glasses) Meds Allergies Allergy/AdvReac Type Severity Reaction Status Date / Time No Known Allergies Allergy Verified 11/15/24 05:31 Active Medications: Current Medications Calcium Carbonate (Calcium Carbonate 750 Mg Tab.Chew) 750 mg PO Q4H PRN PRN Reason: Heartburn Hydromorphone HCl (Hydromorphone Hcl 1 Mg/Ml Syringe) 0.5 mg IVPUSH Q4H PRN; Protocol PRN Reason: Pain, Severe (Pain Scale 7-10) Metronidazole (Flagyl) 500 mg in 100 mls @ 100 mls/hr IV ONCE ONE Stop: 11/15/24 11:50 Lactated Ringer's (Lr) 1,000 mls @ 100 mls/hr IVCONT .Q10H WALT Piperacillin Sod/Tazobactam (Sod 3.375 gm/ Sodium Chloride) 50 mls @ 100 mls/hr IV ONCE ONE Stop: 11/15/24 11:52 Melatonin (Melatonin 3 Mg Tablet) 6 mg PO BEDTIME PRN PRN Reason: Insomnia Ondansetron HCl (Ondansetron Hcl 4 Mg/2 Ml Vial) 4 mg IVPUSH Q8H PRN PRN Reason: Nausea and Vomiting Sodium Chloride (0.9 % Sodium Chloride Flush 3 Ml Syringe) 3 ml IVFLUSH QSHIFT [facility] Home Medications ?Medication ?Instructions ?Recorded ?Confirmed ?Last Taken ?Type ibuprofen 800 mg tablet 800 mg PO TID PRN pain 11/19/21 11/19/21 Unknown History Physical Exam 2 Vital Signs and Narrative: Vital Signs: Last Vital Signs Temp 97.2 F 11/15/24 10:24 Pulse 71 11/15/24 10:24 Resp 14 11/15/24 10:24 BP 135/77 11/15/24 10:24 Pulse Ox 99 11/15/24 10:24 O2 Del Method Room Air 11/15/24 10:24 BMI result Body Mass Index 21.9 General: AOx3, no acute distress Resp: CTA bilaterally CVS: S1, S2, RRR GI: +BS, no distention, LLQ tenderness Skin: Warm, dry : Deferred Neuro: Cranial nerves II-XII grossly intact bilaterally. Motor grossly intact bilaterally. No tremors noted. Extremities: No edema Psych: Appropriate affect Results Labs 11/15/24 05:49 11/15/24 05:49 Labs: Laboratory Results - last 24 hr 11/15/24 11/15/24 11/15/24 05:49 07:45 10:27 MCV 91.9 MCH 32.0 MCHC 34.8 RDW 13.8 Plt Count 258 MPV 9.0 L Immature Gran % (Auto) 0.6 H Neut % (Auto) 71.5 Lymph % (Auto) 13.2 L [place] % (Auto) 8.8 Eos % (Auto) 4.9 H Baso % (Auto) 1.0 Lymph # (Auto) 1.6 [place] # (Auto) 1.1 Eos # (Auto) 0.6 H Baso # (Auto) 0.1 Abs Immat Gran (auto) 0.07 H Absolute Neuts (auto) 8.9 H Absolute Nucleated RBC 0.000 Nucleated RBC % (auto) 0.0 Anion Gap 12 Estim Creat Clear Calc 97.7 Estimated GFR > 60 Random Glucose 126 H Lactic Acid 0.7 Calcium 9.6 Total Bilirubin 1.2 H AST 22 ALT 20 Alkaline Phosphatase 61 Total Protein 7.2 Albumin 4.0 Urine Color Yellow Urine Appearance Clear Urine pH 6.0 Ur Specific [place] 1.010 Urine Protein Negative Urine Glucose (UA) Negative Urine Ketones Negative Urine Blood Small (1+) H Urine Nitrite Negative Ur Leukocyte Esterase Negative Urine RBC 0-2 Urine WBC 0-5 Ur Squamous Epith Cells 0-2 Urine Bacteria None Seen Hyaline Casts 0-2 Imaging Radiologist's Impressions: Impressions Abdomen/Pelvis CT 11/15/24 10:40 IMPRESSION: Inflamed short segment of sigmoid colon which demonstrates wall thickening and multiple diverticuli. There is a large amount of associated extraluminal gas as described, consistent with bowel perforation. Findings are most compatible with perforated diverticulitis or perforated carcinoma. Follow-up sigmoidoscopy is recommended. These findings were discussed with Dr. Coto in the Emergency Room on 11/15/2024 at 10:53 AM. Electronically signed by: Angel Adhikari MD 11/15/2024 10:57 AM EDT Assessment and Plan (1) Perforation of sigmoid colon: Status: Acute Plan The pt is a 59-year-old male with a PMH significant for bilateral inguinal hernias, alcohol dependence, and nicotine dependence not on home meds who was admitted to the hospital under general surgery services for perforated sigmoid diverticulitis. Hospitalist consult for medical management. Acute perforated sigmoid diverticulitis Pt to undergo emergent colectomy with diverting ostomy later this afternoon Plan as per General surgery Bilateral inguinal hernias Follow up outpatient with General surgery Alcohol dependence Reports drinking 6-8 beers daily Denies hx of alcohol withdrawal Currently scoring 1-2 on CIWA, not in acute withdrawal Continue monitoring on CIWA Consider Addiction medicine consult Nicotine dependence Currently smoking 1 pack daily Nicotine replacement therapy Encourage smoking cessation Thank i for allowing us to participate in the care of this pt. Will continue to follow along with you to monitor for treatment of possible alcohol withdrawal.
[2024-11-15] MEDS: cefTRIAXone sodium 2 GM VIAL IVPUSH (11:37)
[2024-11-15] MEDS: metroNIDAZOLE/NS 500 MG/100 ML PIGGYBACK 100 MG IV (11:41)
--- NOTE | 2024-11-15 11:46 | PC.NURSE ---
report given to BRODERICK Le RN. aware some abx can not be started prior to transfer due to abx already running
--- NOTE | 2024-11-15 12:04 | PC.NURSE ---
patient to OR
[2024-11-15] MEDS: Piperacillin Sodium/Tazobactam 3.375 GM in 0.9 % Sodium Chloride 50 ML IV ×2 (13:09→18:13)
--- NOTE | 2024-11-15 13:12 | P.CONAN_ITS ---
HPI - Anesthesia Eval Consult details Narrative: For explor laparotomy PMFSH Active Problems Active Problems: All Active Problems Perforation of sigmoid colon (Acute) Diverticulitis (Acute) Nicotine dependence, cigarettes, uncomplicated (Acute) Hematuria (Acute) Bilateral inguinal hernia (Acute) Past Medical History Medical History Nicotine dependence, cigarettes, uncomplicated History of colon polyps Family History Family History Mother No problems noted. Father No problems noted. Family history of problems with anesthesia: No Surgical History Surgical History History of cystoscopy History of colonoscopy (~08/26/16) History of Problems with Anesthesia: No Social History Social History Housing: House Alcohol intake: current Alcohol intake frequency: 3 or more drinks per day Alcohol type: beer Patient Tobacco Use Status: Current everyday Tobacco user Tobacco use type: Cigarette Cigarettes Per Day: 10 Years Smoked: (onset 13yo, 1ppd x 43yrs, 40pyh) Smoked in Last 30 Days: Yes e-Cigarette/Vaping Use: Currently Using Use of substances other than those prescribed or required for medical reasons: Yes Substance Use Type: Marijuana Are you DNR?: No Advance Directives: No Do you have a plan to hurt others: No Plan Poor oral hygiene: No Current occupational status: employed Cognitive needs: No Hearing needs: No Vision needs: Yes (reading glasses) Meds Allergies Allergy/AdvReac Type Severity Reaction Status Date / Time No Known Allergies Allergy Verified 11/15/24 05:31 Active Medications: Current Medications Calcium Carbonate (Calcium Carbonate 750 Mg Tab.Chew) 750 mg PO Q4H PRN PRN Reason: Heartburn Hydromorphone HCl (Hydromorphone Hcl 1 Mg/Ml Syringe) 0.5 mg IVPUSH Q4H PRN; Protocol PRN Reason: Pain, Severe (Pain Scale 7-10) Lactated Ringer's (Lr) 1,000 mls @ 100 mls/hr IVCONT .Q10H WALT Melatonin (Melatonin 3 Mg Tablet) 6 mg PO BEDTIME PRN PRN Reason: Insomnia Nicotine (Nicotine 21 Mg Patch.Td24) 21 mg TRANSDERMA DAILY [facility] Ondansetron HCl (Ondansetron Hcl 4 Mg/2 Ml Vial) 4 mg IVPUSH Q8H PRN PRN Reason: Nausea and Vomiting Sodium Chloride (0.9 % Sodium Chloride Flush 3 Ml Syringe) 3 ml IVFLUSH QSHIFT [place] Home Medications ?Medication ?Instructions ?Recorded ?Confirmed ?Last Taken ?Type ibuprofen 800 mg tablet 800 mg PO TID PRN pain 11/19/21 11/19/21 Unknown History Exam Height,Weight and Vital Signs: Height 5 ft 7 in Weight 63.503 kg Last Vital Signs Temp 99.9 F 11/15/24 12:21 Pulse 69 11/15/24 12:21 Resp 16 11/15/24 12:21 BP 130/79 11/15/24 12:21 Pulse Ox 96 11/15/24 12:21 O2 Del Method Room Air 11/15/24 12:21 Pertinent Lab Results Pertinent Lab Results: Laboratory Tests 11/15/24 11/15/24 11/15/24 05:49 07:45 10:27 WBC 12.4 H RBC 4.81 Hgb 15.4 Hct 44.2 MCV 91.9 MCH 32.0 MCHC 34.8 RDW 13.8 Plt Count 258 MPV 9.0 L Immature Gran % (Auto) 0.6 H Neut % (Auto) 71.5 Lymph % (Auto) 13.2 L [place] % (Auto) 8.8 Eos % (Auto) 4.9 H Baso % (Auto) 1.0 Lymph # (Auto) 1.6 [place] # (Auto) 1.1 Eos # (Auto) 0.6 H Baso # (Auto) 0.1 Abs Immat Gran (auto) 0.07 H Absolute Neuts (auto) 8.9 H Absolute Nucleated RBC 0.000 Nucleated RBC % (auto) 0.0 Sodium 137 Potassium 4.3 Chloride 103 Carbon Dioxide 26 Anion Gap 12 BUN 13 Creatinine 0.74 Estim Creat Clear Calc 97.7 Estimated GFR > 60 Random Glucose 126 H Lactic Acid 0.7 Calcium 9.6 Total Bilirubin 1.2 H AST 22 ALT 20 Alkaline Phosphatase 61 Total Protein 7.2 Albumin 4.0 Urine Color Yellow Urine Appearance Clear Urine pH 6.0 Ur Specific [place] 1.010 Urine Protein Negative Urine Glucose (UA) Negative Urine Ketones Negative Urine Blood Small (1+) H Urine Nitrite Negative Ur Leukocyte Esterase Negative Urine RBC 0-2 Urine WBC 0-5 Ur Squamous Epith Cells 0-2 Urine Bacteria None Seen Hyaline Casts 0-2 Assessment and Plan Final Anesthetic Review Family History of Problems with Anesthesia: No History of Problems with Anesthesia: No
--- NOTE | 2024-11-15 13:19 | PHA.MEDREC ---
Addendum entered by Timothy Virk 11/15/24 13:24: reviewed Original Note: Pharmacy Consult ? Medication Reconciliation Pharmacy has completed the medication reconciliation. Spoke with patients (Nguyen) over the phone and she was able to confirm the patient is only taking Ibuprofen 800mg tabs 1 TID as needed for pain and confirmed he took it yesterday.
--- NOTE | 2024-11-15 15:25 | W.PM.OPN ---
Operative Note Operative Note Date of Service: 11/15/24 Narrative: Preop diagnosis: Perforated sigmoid diverticulitis Postop diagnosis: The same Procedure: Hand assisted laparoscopic sigmoid resection and end colostomy; no fecal spillage noted Surgeon: Rodger Gilliam MD visitor information assistant: NAYAN Sunshine The patient is a 59-year-old male with lower abdominal pain, significantly worsening this morning. He had a CAT scan in the ER showing significant changes in the proximal to mid sigmoid, with free air surrounding this consistent with a perforated diverticulitis. In view of the large amount of free air, I told him it would be best to proceed with the planned procedure. He understood the technique of sigmoid resection and end colonoscopy and was aware of the risks, benefits, and alternatives. He was brought to the operating room. He was placed in modified lithotomy position under general anesthesia via endotracheal tube. The abdomen was prepped and draped in usual sterile fashion. A surgical time-out was done. The patient received Zosyn has a scheduled IV antibiotics . A Allen catheter was also inserted. He had a short midline infraumbilical incision with a blade 10. This carried down with electrocautery through the full-thickness of the skin and subcutaneous fat. The fascia was incised and the peritoneum was entered. The Rashid wound retractor was positioned. The port along with the insufflating port was attached to this and we insufflated to a pressure of 15 mm Hg. With laparoscopic visualization using a 10 mm 30 degree scope through the port, I placed 5/12 mm port in the epigastric area through a small stab incision. We moved the laparoscope into the epigastric port. The patient was placed in a head-down in the right side down position. I placed my hand through the GelPort and reflected the bowel loops away from the pelvis in the left lower quadrant. I had to position a moist lap to maintain bowel loops away from the pelvis. With laparoscopic visualization I inserted a 5/12 mm port in the right lower quadrant through a small stab incision. Visual examination of the sigmoid showed a long segment which was extremely indurated, very erythematous with significant inflammation of the mesentery. There was no fecal spillage. I was able to palpate a supple segment distal to this. I carefully created a mesenteric window through this healthy segment of the rectosigmoid junction using the LigaSure. I used an Endo-TIBURCIO 60 mm stapler to divide this segment. I had to use the stapler twice to completely transect the area I then proceeded to carefully identify the supple segment proximal to this segment of induration and diseased sigmoid. I then proceeded to divide the ligamentous attachments along the white line of Toldt in the left colon as well as the sigmoid to allow mobilization and create enough length for the creation of the stoma. This was also done with the LigaSure. Once this was achieved, I tested this and it appeared that we would have enough length for the end-colostomy. I then created a mesenteric window proximal to this indurated segment seeing the LigaSure. I used the Endo-TIBURCIO 60 mm stapler as well to divide this segment I then proceeded to to put the attached mesentery of the diseased segment on stretch to define this. I used the LigaSure to divide the mesentery in layers until the entire segments completely . This was retrieved through the incision. I then examined the small bowel loops from proximal to distal and there was no evidence of any bowel injury or any other pathology. I removed the moist lap pad . We then proceeded to excise the discoid piece of skin from the left lower quadrant that we had earlier marked. This was done with a blade 10. I then proceeded to divide the subcutaneous layer down to the anterior sheath with electrocautery. I incised the anterior sheath, did muscle-splitting of the rectus all the way through the posterior sheath to create our stoma opening. I used a Arabella to pull up the stump of divided sigmoid through the stoma opening. We had enough length and we made sure that there was no twisting. The colostomy appeared viable with good blood supply I then proceeded to irrigate. We suctioned out the irrigant fluid. I then closed the fascia of the midline incision with a running Maxon 1 stitch. I examined the abdomen again laparoscopically. There was no evidence of any bleeding or any other bowel injury. There was no bowel loops caught by the fascial sutures. We closed all skin incisions with brandy after desufflating the port sites and removing all the ports. We then matured the stoma by excising the staple line. I applied a circumferential row of 3-0 sutures through the full-thickness of the colostomy subdermal layer. Again there was note of good blood supply and good hemostasis on the stoma Dressings were applied. The stoma appliance was placed and the procedure was completed The patient tolerated procedure well. There were no immediate complications. Initial and final counts of sponges and instruments were correct. Estimated blood loss was about 50 cc. There was note of good urine output. The patient is extubated without difficulty and transferred to the recovery room with stable vital signs.
--- NOTE | 2024-11-15 17:01 | PM.EVENT ---
Event Note Date of Service: 11/15/24 Event Note: Seen postop Underwent hand assisted laparoscopic sigmoid resection and end-colostomy today for perforated diverticulitis Seems to have adequate pain control Stoma viable Stable vital signs Good urine output Pain management Incentive spirometry Await return of GI function Family at bedside,, updated Time Spent With Patient Time: Total time managing care of this patient today ____ minutes.
[2024-11-15] MEDS: Lactated Ringers 1,000 ML 100 ML IVCONT (17:11)
[2024-11-15] MEDS: Acetaminophen 1,000 MG/100 ML PIGGYBACK 400 MG IV ×2 (17:15→23:30)
[2024-11-15] MEDS: Nicotine 21 MG PATCH.TD24 TRANSDERMA (18:39)
[2024-11-15] MEDS: HYDROmorphone HCl 1 MG/ML SYRINGE 0.5 MG IVPUSH (21:59)
[2024-11-16] MEDS: 0.9 % Sodium Chloride Flush 3 ML SYRINGE IVFLUSH ×2 (01:19→09:10)
[2024-11-16] MEDS: Piperacillin Sodium/Tazobactam 3.375 GM in 0.9 % Sodium Chloride 50 ML IV ×4 (01:19→18:32)
[2024-11-16] MEDS: Lactated Ringers 1,000 ML 100 ML IVCONT ×2 (03:43→16:29)
[2024-11-16] MEDS: Acetaminophen 1,000 MG/100 ML PIGGYBACK 400 MG IV ×4 (05:19→22:48)
[2024-11-16 06:11] LABS: MANUAL DIFF FLAG NO
[2024-11-16 06:36] LABS: Basophils Percent Auto 0.3 % (0-2); Hematocrit 41.4 % (42.0-52.0); Hemoglobin 14.1 g/dl (14.0-18.0); Imm Gran Abs Auto 0.07 X10*3/uL (0.00-0.03); Imm Gran Pct Auto 0.5 % (0.0-0.4); Lymphocytes Absolute Auto 1.2 X10*3/uL (1.2-4.9); Mean Corpuscular HGB Conc 34.1 g/dl (31.0-36.0); Mean Corpuscular Volume 94.1 fL (80.0-98.0); Mean Platelet Volume 9.5 fL (9.4-12.4); Monocytes Percent Auto 6.8 % (2-11); Neutrophils Absolute Auto 12.3 x10*3/uL (2.0-8.3); Neutrophils Percent Auto 84.4 % (45-73); Platelet Count 263 X10*3/uL (160-400); Red Cell Distribution Width 13.4 % (11.0-16.0); White Blood Count 14.6 X10*3/uL (4.8-10.8)
[2024-11-16 06:50] LABS: Anion Gap 12 (12-20); Blood Urea Nitrogen 8 mg/dL (9-16); Calcium 8.6 mg/dL (8.4-10.2); Carbon Dioxide 22 mmol/L (22-29); Chloride 105 mmol/L (96-108); Creatinine Clr Calc Pharmacy 127.5; Estimated Glomerular Filt Rate > 60; Glucose Random 123 mg/dL (60-115); Potassium 4.2 mmol/L (3.3-5.1); Sodium 135 mmol/L (135-145)
[2024-11-16 07:28] VITALS: BP 119/64; PULSE 66; RESP 12; TEMP 36.4; O2SAT 97
[2024-11-16] MEDS: HYDROmorphone HCl 1 MG/ML SYRINGE 0.5 MG IVPUSH ×3 (09:04→18:59)
[2024-11-16] MEDS: Heparin Sodium,Porcine 5,000 UNIT/ML VIAL 5000 UNIT SUBCUT ×2 (09:10→18:32)
[2024-11-16] MEDS: Nicotine 21 MG PATCH.TD24 TRANSDERMA (09:10)
--- NOTE | 2024-11-16 10:31 | P.PNGS_ITS ---
Subjective Subjective Date of Service: 11/16/24 Interval history: He says he had a good night Does complain of incisional pain especially with coughing Tolerating clear liquids No signs of EtOH withdrawal Physical Exam 2 Vital Signs: Vital Signs: Last Vital Signs Temp 97.6 F 11/16/24 07:28 Pulse 66 11/16/24 07:28 Resp 12 11/16/24 07:28 BP 119/64 11/16/24 07:28 Pulse Ox 97 11/16/24 07:28 O2 Del Method Nasal Cannula 11/16/24 07:28 O2 Flow Rate 2 11/16/24 07:28 BMI result Body Mass Index 23.5 Const: General: comfortable and no acute distress Resp: Effort & Inspection: normal respiratory effort Cardio: Rate: regular rate GI: Other: Stoma with some stools and gas Palpation (GI): Soft to palpation, not firm and no guarding Objective Data Active Medications Calcium Carbonate (Calcium Carbonate 750 Mg Tab.Chew) 750 mg PO Q4H PRN PRN Reason: Heartburn Guaifenesin (Guaifenesin La 600 Mg Tab.Er.12h) 600 mg PO BID [facility] Heparin Sodium (Porcine) (Heparin Sodium,Porcine 5,000 Unit/Ml Vial) 5,000 unit SUBCUT Q8H [facility] Last Admin: 11/16/24 09:10 Dose: 5,000 unit Documented By: YAIR Hydromorphone HCl (Hydromorphone Hcl 1 Mg/Ml Syringe) 0.5 mg IVPUSH Q4H PRN; Protocol PRN Reason: Pain, Severe (Pain Scale 7-10) Last Admin: 11/16/24 09:04 Dose: 0.5 mg Documented By: YAIR Lactated Ringer's (Lr) 1,000 mls @ 100 mls/hr IVCONT .Q10H [facility] Last Admin: 11/16/24 03:43 Dose: 100 mls/hr Documented By: JAMES Acetaminophen (Ofirmev) 1,000 mg in 100 mls @ 400 mls/hr IV Q6H [facility] Last Infusion: 11/16/24 05:34 Dose: Infused Documented By: JAMES Piperacillin Sod/Tazobactam (Sod 3.375 gm/ Sodium Chloride) 50 mls @ 100 mls/hr IV Q6H [facility] Last Infusion: 11/16/24 08:57 Dose: Infused Documented By: YAIR Ketorolac Tromethamine (Ketorolac Tromethamine 15 Mg/Ml Vial) 15 mg IVPUSH Q6H PRN PRN Reason: Pain, Mild 1-3,fever,headache Last Admin: 11/15/24 18:26 Dose: 15 mg Documented By: MARIA DE JESUS Melatonin (Melatonin 3 Mg Tablet) 6 mg PO BEDTIME PRN PRN Reason: Insomnia Nicotine (Nicotine 21 Mg Patch.Td24) 21 mg TRANSDERMA DAILY [facility] Last Admin: 11/16/24 09:10 Dose: 21 mg Documented By: YAIR Ondansetron HCl (Ondansetron Hcl 4 Mg/2 Ml Vial) 4 mg IVPUSH Q8H PRN PRN Reason: Nausea and Vomiting Oxycodone HCl (Oxycodone Hcl Immed Release 5 Mg Tablet) 5 mg PO Q4H PRN PRN Reason: Pain, Moderate(Pain Scale 4-6) Sodium Chloride (0.9 % Sodium Chloride Flush 3 Ml Syringe) [facility] Last Admin: 11/16/24 09:10 Dose: 3 ml Documented By: YAIR Labs 11/16/24 05:43 11/16/24 05:43 Labs: Laboratory Results - last 24 hr 11/15/24 11/15/24 11/16/24 10:27 13:16 05:43 MCV 94.1 MCH 32.0 MCHC 34.1 RDW 13.4 Plt Count 263 MPV 9.5 Immature Gran % (Auto) 0.5 H Neut % (Auto) 84.4 H Lymph % (Auto) 8.0 L [place] % (Auto) 6.8 Eos % (Auto) 0.0 Baso % (Auto) 0.3 Lymph # (Auto) 1.2 [place] # (Auto) 1.0 Eos # (Auto) 0.0 Baso # (Auto) 0.0 Abs Immat Gran (auto) 0.07 H Absolute Neuts (auto) 12.3 H Absolute Nucleated RBC 0.000 Nucleated RBC % (auto) 0.0 Anion Gap 12 Estim Creat Clear Calc 127.5 Estimated GFR > 60 Random Glucose 123 H Calcium 8.6 D Urine Color Yellow Urine Appearance Clear Urine pH 6.0 Ur Specific [place] 1.010 Urine Protein Negative Urine Glucose (UA) Negative Urine Ketones Negative Urine Blood Small (1+) H Urine Nitrite Negative Ur Leukocyte Esterase Negative Urine RBC 0-2 Urine WBC 0-5 Ur Squamous Epith Cells 0-2 Urine Bacteria None Seen Hyaline Casts 0-2 Blood Type B Positive Antibody Screen NEGATIVE Procedures Date of Service Date of Service: 11/16/24 Progress Note: A&P Assessment and plan (1) Perforation of sigmoid colon: Status: Acute Assessment and Plan: Status post Osorio's procedure yesterday Colostomy functioning well Plan to advance diet later on today Pain management Encouraged ambulation Incentive spirometry Hospitalist following for EtOH abuse On CIWA protocol Looks well clinically DC Allen Labs seen - postop leukocytosis likely from preoperative stress Time Spent With Patient Time: Total time managing care of this patient today ____ minutes. Quality Stroke Does the patient have a stroke diagnosis?: No VTE Prior VTE?: No VTE Risk Level:: Surgical - moderate VTE Device Contraindication: N/A - Device Ordered VTE Drug Contraindication: Treatment Not Indicated
--- NOTE | 2024-11-16 11:29 | HO.PM.IMPN ---
Subjective Subjective Date of Service: 11/16/24 Interval History: Follow up for pt admitted under general surgery services for perforated sigmoid diverticulitis with emergent colectomy and diverting colostomy POD1 Pain currently well-controlled with current regimen Earlier had breakthrough pain at surgical site, as well as in testicles Ostomy with solid output Also had headache alleviated with coffee Has been scoring 0 on CIWA, no evidence of acute alcohol withdrawal Review of Systems Review of Systems: Yes all other systems are reviewed and are negative Physical Exam Vital Signs: Vital Signs: Last Vital Signs Temp 97.6 F 11/16/24 07:28 Pulse 66 11/16/24 07:28 Resp 12 11/16/24 07:28 BP 119/64 11/16/24 07:28 Pulse Ox 97 11/16/24 07:28 O2 Del Method Nasal Cannula 11/16/24 07:28 O2 Flow Rate 2 11/16/24 07:28 BMI result Body Mass Index 23.5 General: AOx3, no acute distress Resp: CTA bilaterally CVS: S1, S2, RRR GI: +BS, no distention, appropriately tender at surgical sites. Ostomy with solid nonbloody output. Skin: Warm, dry Neuro: Cranial nerves II-XII grossly intact bilaterally. Motor grossly intact bilaterally. No tremors noted Extremities: No edema Psych: Appropriate affect Objective Data Active Medications Calcium Carbonate (Calcium Carbonate 750 Mg Tab.Chew) 750 mg PO Q4H PRN PRN Reason: Heartburn Guaifenesin (Guaifenesin La 600 Mg Tab.Er.12h) 600 mg PO BID [facility] Heparin Sodium (Porcine) (Heparin Sodium,Porcine 5,000 Unit/Ml Vial) 5,000 unit SUBCUT Q8H [facility] Last Admin: 11/16/24 09:10 Dose: 5,000 unit Documented By: YAIR Hydromorphone HCl (Hydromorphone Hcl 1 Mg/Ml Syringe) 0.5 mg IVPUSH Q4H PRN; Protocol PRN Reason: Pain, Severe (Pain Scale 7-10) Last Admin: 11/16/24 09:04 Dose: 0.5 mg Documented By: YAIR Lactated Ringer's (Lr) 1,000 mls @ 100 mls/hr IVCONT .Q10H [facility] Last Admin: 11/16/24 03:43 Dose: 100 mls/hr Documented By: JAMES Acetaminophen (Ofirmev) 1,000 mg in 100 mls @ 400 mls/hr IV Q6H [facility] Last Infusion: 11/16/24 05:34 Dose: Infused Documented By: JAMES Piperacillin Sod/Tazobactam (Sod 3.375 gm/ Sodium Chloride) 50 mls @ 100 mls/hr IV Q6H [facility] Last Infusion: 11/16/24 08:57 Dose: Infused Documented By: YAIR Ketorolac Tromethamine (Ketorolac Tromethamine 15 Mg/Ml Vial) 15 mg IVPUSH Q6H PRN PRN Reason: Pain, Mild 1-3,fever,headache Last Admin: 11/15/24 18:26 Dose: 15 mg Documented By: MARIA DE JESUS Melatonin (Melatonin 3 Mg Tablet) 6 mg PO BEDTIME PRN PRN Reason: Insomnia Nicotine (Nicotine 21 Mg Patch.Td24) 21 mg TRANSDERMA DAILY [facility] Last Admin: 11/16/24 09:10 Dose: 21 mg Documented By: YAIR Ondansetron HCl (Ondansetron Hcl 4 Mg/2 Ml Vial) 4 mg IVPUSH Q8H PRN PRN Reason: Nausea and Vomiting Oxycodone HCl (Oxycodone Hcl Immed Release 5 Mg Tablet) 5 mg PO Q4H PRN PRN Reason: Pain, Moderate(Pain Scale 4-6) Sodium Chloride (0.9 % Sodium Chloride Flush 3 Ml Syringe) 3 ml IVFLUSH QSHIFT [facility] Last Admin: 11/16/24 09:10 Dose: 3 ml Documented By: YAIR Labs 11/16/24 05:43 11/16/24 05:43 Labs: Laboratory Results - last 24 hr 11/15/24 11/16/24 13:16 05:43 MCV 94.1 MCH 32.0 MCHC 34.1 RDW 13.4 Plt Count 263 MPV 9.5 Immature Gran % (Auto) 0.5 H Neut % (Auto) 84.4 H Lymph % (Auto) 8.0 L [place] % (Auto) 6.8 Eos % (Auto) 0.0 Baso % (Auto) 0.3 Lymph # (Auto) 1.2 [place] # (Auto) 1.0 Eos # (Auto) 0.0 Baso # (Auto) 0.0 Abs Immat Gran (auto) 0.07 H Absolute Neuts (auto) 12.3 H Absolute Nucleated RBC 0.000 Nucleated RBC % (auto) 0.0 Anion Gap 12 Estim Creat Clear Calc 127.5 Estimated GFR > 60 Random Glucose 123 H Calcium 8.6 D Blood Type B Positive Antibody Screen NEGATIVE Assessment and Plan (1) Perforation of sigmoid colon: Status: Acute Assessment and Plan: The pt is a 59-year-old male with a PMH significant for bilateral inguinal hernias, alcohol dependence, and nicotine dependence not on home meds who was admitted to the hospital under general surgery services for perforated sigmoid diverticulitis. Hospitalist consult for medical management. POD1. Acute perforated sigmoid diverticulitis Pt underwent emergent colectomy with diverting ostomy yesterday. POD1 Plan as per General surgery Bilateral inguinal hernias Follow up outpatient with General surgery Testicular pain Has had intermittent severe testicular pain for the past month Mostly recently this morning when pain meds wore off Possibly in the setting of inguinal hernias Plan as per general surgery Alcohol dependence Reports drinking 6-8 beers daily Denies hx of alcohol withdrawal Has been scoring 0 on CIWA, not in acute withdrawal Continue monitoring on CIWA for next 24 hours Consider Addiction medicine consult Nicotine dependence Currently smoking 1 pack daily Nicotine replacement therapy Encourage smoking cessation Will continue to follow along with you to monitor for treatment of possible alcohol withdrawal. Quality Stroke Does the patient have a stroke diagnosis?: No VTE Prior VTE?: No VTE Risk Level:: Surgical - moderate VTE Device Contraindication: N/A - Device Ordered VTE Drug Contraindication: Treatment Not Indicated
[2024-11-16 12:06] VITALS: BP 142/80; PULSE 74; RESP 18; TEMP 36.6; O2SAT 97
--- NOTE | 2024-11-16 12:37 | HO.POSTANES ---
Post Anesthesia Evaluation Post Anesthesia Evaluation Date of Service: 11/16/24 Vital Signs: Vital Signs Temp Pulse Resp BP Pulse Ox O2 Del Method O2 Flow Rate 11/16/24 12:06 97.9 F 74 18 142/80 H 97 Room Air 11/16/24 07:28 97.6 F 66 12 119/64 97 Nasal Cannula 2 Anesthesia: General Endotracheal-GETA Mental Status: Awake Pain Control: Satisfactory (some incisional pain) Nausea/Vomiting: None Hydration: Adequate Anesthesia-Related Issues: No Anes. Related Issues
[2024-11-16] MEDS: guaiFENesin LA 600 MG TAB.ER.12H PO (13:05)
--- NOTE | 2024-11-16 13:30 | MHC.CM.PN ---
PT REPORTS HE LIVES WITH HIS AND IS INDEPENDENT WITH CARE HE HAS NO DME AND NO SERVICES COPY OF HCP REQUESTED HE SAYS DR DAY WAS HIS PCP, HE THINKS IT IS NOW DR KENNEDY DCP: HOME ? [facility] VIA PRIVATE TRANSPORT
[2024-11-16 15:04] VITALS: BP 137/77; PULSE 84; RESP 18; TEMP 36.7; O2SAT 98
--- NOTE | 2024-11-16 15:18 | PM.EVENT ---
Event Note Date of Service: 11/16/24 Event Note: Seen on afternoon rounds Has good amounts of air and liquid stool in the colostomy bag Appears to have good pain control Abdomen is soft and benign Tolerating clear liquids well We will advance to regular diet tonight Continue pain management Ambulate Incentive spirometry Time Spent With Patient Time: Total time managing care of this patient today ____ minutes.
[2024-11-16] MEDS: oxyCODONE HCl Immed Release 5 MG TABLET PO (16:35)
[2024-11-16 23:17] VITALS: BP 129/75; PULSE 74; RESP 18; TEMP 36.4; O2SAT 96
[2024-11-17] MEDS: 0.9 % Sodium Chloride Flush 3 ML SYRINGE IVFLUSH ×2 (01:05→16:39)
[2024-11-17] MEDS: Piperacillin Sodium/Tazobactam 3.375 GM in 0.9 % Sodium Chloride 50 ML IV ×4 (01:05→18:24)
[2024-11-17] MEDS: HYDROmorphone HCl 1 MG/ML SYRINGE 0.5 MG IVPUSH (01:40)
[2024-11-17] MEDS: Heparin Sodium,Porcine 5,000 UNIT/ML VIAL 5000 UNIT SUBCUT ×3 (01:41→18:24)
[2024-11-17 02:10] VITALS: RESP 18
[2024-11-17] MEDS: Lactated Ringers 1,000 ML 100 ML IVCONT (04:20)
[2024-11-17] MEDS: Acetaminophen 1,000 MG/100 ML PIGGYBACK 400 MG IV ×4 (04:28→22:34)
[2024-11-17 04:58] VITALS: RESP 18
[2024-11-17 07:58] VITALS: BP 134/80; PULSE 64; RESP 14; TEMP 36.8; O2SAT 95
--- NOTE | 2024-11-17 08:40 | P.PNIM_ITS ---
Subjective Subjective Date of Service: 11/17/24 Interval History: Follow up for pt admitted under general surgery services for perforated sigmoid diverticulitis with emergent colectomy and diversity in colostomy, POD2 No acute events overnight Pt overall reports doing well Diet advanced to regular last night Was able to tolerate solid foods, no N/V Solid and liquid stool in colostomy bag Abdominal and testicular pain well-controlled No difficulty urinating Continues to score 0 on CIWA, no evidence of alcohol withdrawal Review of Systems Review of Systems: Yes all other systems are reviewed and are negative Physical Exam 2 Vital Signs: Vital Signs: Last Vital Signs Temp 98.3 F 11/17/24 07:58 Pulse 64 11/17/24 07:58 Resp 14 11/17/24 07:58 BP 134/80 11/17/24 07:58 Pulse Ox 95 11/17/24 07:58 O2 Del Method Room Air 11/17/24 07:58 O2 Flow Rate 2 11/16/24 07:28 BMI result Body Mass Index 23.5 General: AOx3, no acute distress Resp: CTA bilaterally CVS: S1, S2, RRR GI: +BS, no distention, appropriately tender at surgical sites. Ostomy with solid and liquid nonbloody output. Skin: Warm, dry Neuro: Cranial nerves II-XII grossly intact bilaterally. Motor grossly intact bilaterally. No tremors noted. Extremities: No edema Psych: Appropriate affect Objective Data Active Medications Calcium Carbonate (Calcium Carbonate 750 Mg Tab.Chew) 750 mg PO Q4H PRN PRN Reason: Heartburn Guaifenesin (Guaifenesin La 600 Mg Tab.Er.12h) 600 mg PO BID [facility] Last Admin: 11/16/24 21:47 Dose: Not Given Documented By: JAMES Non-Admin Reason: pt declined Heparin Sodium (Porcine) (Heparin Sodium,Porcine 5,000 Unit/Ml Vial) 5,000 unit SUBCUT Q8H [facility] Last Admin: 11/17/24 01:41 Dose: 5,000 unit Documented By: JAMES Hydromorphone HCl (Hydromorphone Hcl 1 Mg/Ml Syringe) 0.5 mg IVPUSH Q4H PRN; Protocol PRN Reason: Pain, Severe (Pain Scale 7-10) Last Admin: 11/17/24 01:40 Dose: 0.5 mg Documented By: JAMES Lactated Ringer's (Lr) 1,000 mls @ 100 mls/hr IVCONT .Q10H [facility] Last Infusion: 11/17/24 06:55 Dose: 100 mls/hr Documented By: JAMES Acetaminophen (Ofirmev) 1,000 mg in 100 mls @ 400 mls/hr IV Q6H [facility] Last Infusion: 11/17/24 04:43 Dose: Infused Documented By: JAMES Piperacillin Sod/Tazobactam (Sod 3.375 gm/ Sodium Chloride) 50 mls @ 100 mls/hr IV Q6H [facility] Last Infusion: 11/17/24 06:55 Dose: Infused Documented By: JAMES Ketorolac Tromethamine (Ketorolac Tromethamine 15 Mg/Ml Vial) 15 mg IVPUSH Q6H PRN PRN Reason: Pain, Mild 1-3,fever,headache Last Admin: 11/15/24 18:26 Dose: 15 mg Documented By: MARIA DE JESUS Melatonin (Melatonin 3 Mg Tablet) 6 mg PO BEDTIME PRN PRN Reason: Insomnia Nicotine (Nicotine 21 Mg Patch.Td24) 21 mg TRANSDERMA DAILY [facility] Last Admin: 11/16/24 09:10 Dose: 21 mg Documented By: YAIR Ondansetron HCl (Ondansetron Hcl 4 Mg/2 Ml Vial) 4 mg IVPUSH Q8H PRN PRN Reason: Nausea and Vomiting Oxycodone HCl (Oxycodone Hcl Immed Release 5 Mg Tablet) 5 mg PO Q4H PRN PRN Reason: Pain, Moderate(Pain Scale 4-6) Last Admin: 11/16/24 16:35 Dose: 5 mg Documented By: YAIR Sodium Chloride (0.9 % Sodium Chloride Flush 3 Ml Syringe) 3 ml IVFLUSH QSHIFT [facility] Last Admin: 11/17/24 01:05 Dose: 3 ml Documented By: JAMES Labs 11/16/24 05:43 11/16/24 05:43 Microbiology Microbiology Results: Microbiology 11/15/24 11:24 Blood Culture - Preliminary Blood - Venous No growth after 24 hours. 11/15/24 11:24 Blood Culture - Preliminary Blood - Venous No growth after 24 hours. Assessment and Plan (1) Perforation of sigmoid colon: Status: Acute Plan Pt is a 59-year-old male with a PMH significant for bilateral inguinal hernias, alcohol dependence, and nicotine dependence not on home meds who was admitted to the hospital under general surgery services for perforated sigmoid diverticulitis. Hospitalist consult for medical management. POD2. Acute perforated sigmoid diverticulitis Pt underwent emergent colectomy with diverting ostomy yesterday. POD2 Pain well controlled Solid and liquid output in ostomy bag Plan as per General surgery Bilateral inguinal hernias Follow up outpatient with General surgery Testicular pain Has had intermittent severe testicular pain for the past month Better controlled this morning Urinating freely without difficulties Possibly in the setting of inguinal hernias Plan as per general surgery Alcohol dependence Reports drinking 6-8 beers daily Denies hx of alcohol withdrawal Has been scoring 0 on CIWA, not in acute withdrawal Will cancel CIWA Consider Addiction medicine consult Nicotine dependence Currently smoking 1 pack daily Nicotine replacement therapy Encourage smoking cessation Given negative CIWA over past 48+ hours, little concern for alcohol withdrawal. Will sign off for now. Thank you for allowing us to participate in the care of this pt. Please reconsult if any acute issue or need arises. Quality Stroke Does the patient have a stroke diagnosis?: No VTE Prior VTE?: No VTE Risk Level:: Surgical - moderate VTE Device Contraindication: N/A - Device Ordered VTE Drug Contraindication: Treatment Not Indicated
[2024-11-17] MEDS: Nicotine 21 MG PATCH.TD24 TRANSDERMA (09:06)
[2024-11-17] MEDS: oxyCODONE HCl Immed Release 5 MG TABLET PO (09:06)
[2024-11-17] MEDS: guaiFENesin LA 600 MG TAB.ER.12H PO (09:16)
--- NOTE | 2024-11-17 09:33 | PM.PNGS ---
Subjective Subjective Date of Service: 11/17/24 Interval history: Feels well this morning Appears to have good pain control No signs of EtOH withdrawal Stoma functioning well Tolerating diet Physical Exam Vital Signs: Vital Signs: Last Vital Signs Temp 98.3 F 11/17/24 07:58 Pulse 64 11/17/24 07:58 Resp 14 11/17/24 07:58 BP 134/80 11/17/24 07:58 Pulse Ox 95 11/17/24 07:58 O2 Del Method Room Air 11/17/24 07:58 O2 Flow Rate 2 11/16/24 07:28 BMI result Body Mass Index 23.5 Const: General: comfortable and no acute distress Resp: Effort & Inspection: normal respiratory effort Cardio: Rate: regular rate GI: Other: Incision clean, stoma with good output Palpation (GI): Soft to palpation, not firm and no guarding Objective Data Active Medications Calcium Carbonate (Calcium Carbonate 750 Mg Tab.Chew) 750 mg PO Q4H PRN PRN Reason: Heartburn Guaifenesin (Guaifenesin La 600 Mg Tab.Er.12h) 600 mg PO BID [facility] Last Admin: 11/17/24 09:16 Dose: 600 mg Documented By: YAIR Heparin Sodium (Porcine) (Heparin Sodium,Porcine 5,000 Unit/Ml Vial) 5,000 unit SUBCUT Q8H [facility] Last Admin: 11/17/24 09:07 Dose: 5,000 unit Documented By: YAIR Hydromorphone HCl (Hydromorphone Hcl 1 Mg/Ml Syringe) 0.5 mg IVPUSH Q4H PRN; Protocol PRN Reason: Pain, Severe (Pain Scale 7-10) Last Admin: 11/17/24 01:40 Dose: 0.5 mg Documented By: JAMES Lactated Ringer's (Lr) 1,000 mls @ 100 mls/hr IVCONT .Q10H [facility] Last Infusion: 11/17/24 06:55 Dose: 100 mls/hr Documented By: JAMES Acetaminophen (Ofirmev) 1,000 mg in 100 mls @ 400 mls/hr IV Q6H [facility] Last Infusion: 11/17/24 04:43 Dose: Infused Documented By: JAMES Piperacillin Sod/Tazobactam (Sod 3.375 gm/ Sodium Chloride) 50 mls @ 100 mls/hr IV Q6H [facility] Last Infusion: 11/17/24 06:55 Dose: Infused Documented By: JAMES Ketorolac Tromethamine (Ketorolac Tromethamine 15 Mg/Ml Vial) 15 mg IVPUSH Q6H PRN PRN Reason: Pain, Mild 1-3,fever,headache Last Admin: 11/15/24 18:26 Dose: 15 mg Documented By: MARIA DE JESUS Melatonin (Melatonin 3 Mg Tablet) 6 mg PO BEDTIME PRN PRN Reason: Insomnia Nicotine (Nicotine 21 Mg Patch.Td24) 21 mg TRANSDERMA DAILY [facility] Last Admin: 11/17/24 09:06 Dose: 21 mg Documented By: YAIR Ondansetron HCl (Ondansetron Hcl 4 Mg/2 Ml Vial) 4 mg IVPUSH Q8H PRN PRN Reason: Nausea and Vomiting Oxycodone HCl (Oxycodone Hcl Immed Release 5 Mg Tablet) 5 mg PO Q4H PRN PRN Reason: Pain, Moderate(Pain Scale 4-6) Last Admin: 11/17/24 09:06 Dose: 5 mg Documented By: YAIR Sodium Chloride (0.9 % Sodium Chloride Flush 3 Ml Syringe) 3 ml IVFLUSH QSHIFT [facility] Last Admin: 11/17/24 09:07 Dose: Not Given Documented By: YAIR Non-Admin Reason: IV Running Labs 11/16/24 05:43 11/16/24 05:43 Microbiology Microbiology Results: Microbiology 11/15/24 11:24 Blood Culture - Preliminary Blood - Venous No growth after 24 hours. 11/15/24 11:24 Blood Culture - Preliminary Blood - Venous No growth after 24 hours. Procedures Date of Service Date of Service: 11/17/24 Progress Note: A&P Assessment and plan (1) Perforation of sigmoid colon: Status: Acute Assessment and Plan: Status post Osorio's procedure Colostomy functioning well Good pain control Tolerating regular diet Looks well clinically Possible DC home tomorrow Time Spent With Patient Time: Total time managing care of this patient today ____ minutes. Quality Stroke Does the patient have a stroke diagnosis?: No VTE Prior VTE?: No VTE Risk Level:: Surgical - moderate VTE Device Contraindication: N/A - Device Ordered VTE Drug Contraindication: Treatment Not Indicated
[2024-11-17 15:20] VITALS: BP 137/88; PULSE 72; RESP 18; TEMP 36.2; O2SAT 97
[2024-11-17 23:30] VITALS: RESP 16
[2024-11-18] VITALS: BP 142/84; PULSE 72; RESP 16; TEMP 36.5; O2SAT 94
[2024-11-18] MEDS: Piperacillin Sodium/Tazobactam 3.375 GM in 0.9 % Sodium Chloride 50 ML IV ×3 (00:08→12:46)
[2024-11-18] MEDS: 0.9 % Sodium Chloride Flush 3 ML SYRINGE IVFLUSH ×3 (00:08→12:47)
[2024-11-18] MEDS: Acetaminophen 1,000 MG/100 ML PIGGYBACK 400 MG IV (05:17)
[2024-11-18] MEDS: Heparin Sodium,Porcine 5,000 UNIT/ML VIAL 5000 UNIT SUBCUT (05:19)
[2024-11-18 05:47] VITALS: RESP 18
[2024-11-18 07:51] VITALS: BP 143/85; PULSE 68; RESP 18; TEMP 36.8; O2SAT 96
[2024-11-18] MEDS: guaiFENesin LA 600 MG TAB.ER.12H PO (08:30)
[2024-11-18] MEDS: Nicotine 21 MG PATCH.TD24 TRANSDERMA (08:31)
--- NOTE | 2024-11-18 09:47 | PM.PNGS ---
Subjective Subjective Date of Service: 11/18/24 <Chuy Ferris PA-C - Last Filed: 11/18/24 10:11> 11/18/24 <Rodger Gilliam MD - Last Filed: 11/18/24 11:11> Patient reports: no new complaints, pain is less, tolerating a regular diet, flatus and bowel movement <Chuy Ferris PA-C - Last Filed: 11/18/24 10:11> Interval history: Patient reports he is doing well his pain is well controlled with just IV Tylenol. States his pain is mostly related to the incision sites. States he is tolerating diet well, has been trying to eat smaller meals and not push his body at this point. He reports ambulating in the room and on the floor. He reports large amounts of flatus and liquid stool passing into the bag. He denies fever/chills shortness of breath. He states he feels like he is ready to return home <Chuy Ferris PA-C - Last Filed: 11/18/24 10:11> Physical Exam Vital Signs: Vital Signs: Last Vital Signs Temp 98.2 F 11/18/24 07:51 Pulse 68 11/18/24 07:51 Resp 18 11/18/24 07:51 BP 143/85 H 11/18/24 07:51 Pulse Ox 96 11/18/24 07:51 O2 Del Method Room Air 11/18/24 07:51 O2 Flow Rate 2 11/16/24 07:28 BMI result Body Mass Index 23.5 <Chuy Ferris PA-C - Last Filed: 11/18/24 10:11> Const: General: comfortable and no acute distress <Chuy Ferris PA-C - Last Filed: 11/18/24 10:11> Resp: Effort & Inspection: normal respiratory effort and able to speak in complete sentences <CAROLINA Cazares Last Filed: 11/18/24 10:11> GI: Inspection: No distended <CAROLINA Cazares Last Filed: 11/18/24 10:11> Palpation (GI): Soft to palpation, not firm, Tenderness to palpation present (GI) (Mild incisional site tenderness), no guarding and not rigid <CAROLINA Cazares Last Filed: 11/18/24 10:11> Objective Data Active Medications Calcium Carbonate (Calcium Carbonate 750 Mg Tab.Chew) 750 mg PO Q4H PRN PRN Reason: Heartburn Guaifenesin (Guaifenesin La 600 Mg Tab.Er.12h) 600 mg PO BID [facility] Last Admin: 11/18/24 08:30 Dose: 600 mg Documented By: JUANI Heparin Sodium (Porcine) (Heparin Sodium,Porcine 5,000 Unit/Ml Vial) 5,000 unit SUBCUT Q8H [facility] Hydromorphone HCl (Hydromorphone Hcl 1 Mg/Ml Syringe) 0.5 mg IVPUSH Q4H PRN; Protocol PRN Reason: Pain, Severe (Pain Scale 7-10) Last Admin: 11/17/24 01:40 Dose: 0.5 mg Documented By: JAMES Acetaminophen (Ofirmev) 1,000 mg in 100 mls @ 400 mls/hr IV Q6H [facility] Last Infusion: 11/18/24 05:35 Dose: Infused Documented By: RYNE Piperacillin Sod/Tazobactam (Sod 3.375 gm/ Sodium Chloride) 50 mls @ 100 mls/hr IV Q6H [facility] Last Infusion: 11/18/24 06:54 Dose: Infused Documented By: RYNE Ketorolac Tromethamine (Ketorolac Tromethamine 15 Mg/Ml Vial) 15 mg IVPUSH Q6H PRN PRN Reason: Pain, Mild 1-3,fever,headache Last Admin: 11/15/24 18:26 Dose: 15 mg Documented By: MARIA DE JESUS Melatonin (Melatonin 3 Mg Tablet) 6 mg PO BEDTIME PRN PRN Reason: Insomnia Nicotine (Nicotine 21 Mg Patch.Td24) 21 mg TRANSDERMA DAILY [facility] Last Admin: 11/18/24 08:31 Dose: 21 mg Documented By: JUANI Ondansetron HCl (Ondansetron Hcl 4 Mg/2 Ml Vial) 4 mg IVPUSH Q8H PRN PRN Reason: Nausea and Vomiting Oxycodone HCl (Oxycodone Hcl Immed Release 5 Mg Tablet) 5 mg PO Q4H PRN PRN Reason: Pain, Moderate(Pain Scale 4-6) Last Admin: 11/17/24 09:06 Dose: 5 mg Documented By: YAIR Sodium Chloride (0.9 % Sodium Chloride Flush 3 Ml Syringe) 3 ml IVFLUSH QSHIFT [facility] Last Admin: 11/18/24 08:31 Dose: 3 ml Documented By: JUANI <Chuy Ferris PA-C - Last Filed: 11/18/24 10:11> Labs CBC & Chem 7: 11/16/24 05:43 11/16/24 05:43 <Chuy Ferris PA-C - Last Filed: 11/18/24 10:11> Microbiology Microbiology Results: Microbiology 11/15/24 11:24 Blood Culture - Preliminary Blood - Venous No growth after 48 hours. 11/15/24 11:24 Blood Culture - Preliminary Blood - Venous No growth after 48 hours. <Chuy Ferris PA-C - Last Filed: 11/18/24 10:11> Procedures Date of Service Date of Service: 11/18/24 <Chuy Ferris PA-C - Last Filed: 11/18/24 10:11> 11/18/24 <Rodger Gilliam MD - Last Filed: 11/18/24 11:11> Progress Note: A&P Assessment and plan (1) Status post Osorio procedure: Status: Acute <Chuy Ferris PA-C - Last Filed: 11/18/24 10:11> Assessment and Plan: Tolerating diet Stoma with good function Feels well Good pain control To be seen by stoma care nurse Otherwise he is ready to be discharged Instructions reinforced with patient Seen and examined independently <Rodger Gilliam MD - Last Filed: 11/18/24 11:11> Assessment and Plan: 59-year-old male POD 3, s/p Osorio procedure. Patient is doing well reports improvement in pain from day-to-day, is now only requiring IV Tylenol for pain control. Pain is controlled at rest and with ambulation, he has been ambulating in the room and on the floor. He is tolerating regular diet well ostomy is producing flatus and stool. Abdominal exam soft and benign, continued incisional site tenderness, appropriate for current stage postop. Clare are intact, no discharge, surrounding erythema or edema noted around the incision sites. No concern for infection at this time. Patient feels stable to go home, we are waiting on ostomy care to meet with him, and then he should be ready for discharge. Ostomy care consult pending Continue pain regimen Will re-evaluate patient this afternoon and confirmed plan for discharge <Chuy Ferris PA-C - Last Filed: 11/18/24 10:11> Time Spent With Patient Time: Total time managing care of this patient today ____ minutes. <Chuy Ferris PA-C - Last Filed: 11/18/24 10:11> Quality Stroke Does the patient have a stroke diagnosis?: No <Chuy Ferris PA-C - Last Filed: 11/18/24 10:11> VTE Prior VTE?: No <Chuy Ferris PA-C - Last Filed: 11/18/24 10:11> VTE Risk Level:: Surgical - moderate <Chuy Ferris PA-C - Last Filed: 11/18/24 10:11> VTE Device Contraindication: N/A - Device Ordered <Chuy Ferris PA-C - Last Filed: 11/18/24 10:11> VTE Drug Contraindication: Treatment Not Indicated <Chuy Ferris PA-C - Last Filed: 11/18/24 10:11>
--- NOTE | 2024-11-18 12:57 | MHC.CM.PN ---
Not cleared for dc at this time, awaiting wound nurse consult for ostomy care/teaching. DP: Home, likely new VNA. CM will continue to follow.
--- NOTE | 2024-11-18 15:07 | P.F2F_ITS ---
Service Date Service Date: 11/18/24 Encounter Date of encounter: 11/18/24 Reasons for Services Signs and symptoms assessed: Abdominal pain Ostomy appearance Ostomy output Reason for senior living: wound care and other (Ostomy care) Homebound: Leaving the home is medically contraindicated at this time without the asist of a device and/or another person due th the listed conditions above and below. Reason homebound: weakness related to hospital stay and unable to drive Homebound supporting statement: Mr Márquez is s/p Osorio procedure for perforated diverticulitis, will need VNA for ostomy and wound care Certification: Based on the above findings, I certify that this patient is confined to the home and needs intermittent senior living care, physical therapy and/or speech therapy, or continues to need occupational therapy. The patient is under my care, and I have initiated the establishment of the plan of care. The patient will be followed by a physician who will periodically review the plan of care. Time Spent With Patient Time: Total time managing care of this patient today ____ minutes.
--- NOTE | 2024-11-18 15:09 | MHC.CM.PN ---
Patient medically cleared for dc home w/ new [facility] services - SN for new ostomy. Private transport. RN aware.
[2024-11-18 16:00] VITALS: BP 140/84; PULSE 82; RESP 18; TEMP 37.4; O2SAT 96
--- NOTE | 2024-11-18 16:23 | P.DS_ITS ---
DS: Providers Provider Date of Service: 11/18/24 Date of admission: 11/15/24 11:23 Date of discharge: 11/18/24 Primary care physician: Huan Arias MD Admitting clinician: Rodger Gilliam Attending physician on admission: Rodger Gilliam Consults: 11/15/24 11:23 Consult to Hospitalist Routine Comment: Consulting Provider: [facility] Hospitalists Reason For Exam: perforated diverticulitis, ETOH abuse, smoker 11/18/24 05:52 Consult to Ostomy Care Routine DS: Diagnosis Discharge Diagnosis (1) Status post Osorio procedure: Status: Acute DS: Summary Hospital Course Hospital Course: Admission HPI: 59 year old male with a history of bilateral inguinal hernias, hyperplastic colon polyp, diverticulosis, nicotine dependence and chronic alcohol use presenting with his to the emergency department with a 1 week history of lower abdominal pain that acutely worsened overnight. He denies fever, chills, diarrhea, n/v. He attempted to go to work but was unable to do so. Patient reports he originally believed that this pain was associated with his hernias. He denies history of abdominal surgery. Most recent colonoscopy 2016, which showed sigmoid diverticulitis and rectal polyp. Patient endorses daily alcohol use, about 6 beers per day. He takes 800 mg of ibuprofen daily for pain, denies any other daily medications. Denies any additional chronic medical conditions. Hosptial Course: The patient was seen in consult by the general surgery team on 11/15/24 for perforated diverticulitis. His abdominal exam was relatively benign at the time of evaluation aside from lower abdominal pain. However, the patient was found to have moderate amounts of that were significant enough to warrant surgical intervention. The plan was discussed with the patient and his partner who agreed with the plan. Patient was started on IV Zosyn by the ED. Later that day the patient was brought to the OR where Dr. Gilliam performed a hand assisted laparoscopic sigmoid colon resection with ostomy creation. The patient tolerated the procedure well and was admitted to the [facility] floor for further management postoperatively. On POD 1 patient was doing well, his only complaint was incisional site pain. He was tolerating clear liquids and able to ambulate. Allen was discontinued and diet was advanced. His ostomy site is functioning well, passing flatus and liquid stool. On POD 2 patient continued to improve, abdominal exam benign aside from incisional site tenderness. He was tolerating regular diet and ambulating. Ostomy site continuing to function well. On POD 3 patient felt ready to be discharged. His pain was well controlled on nonnarcotic medication. He was seen by ostomy care nurse for education re garding caring for his new ostomy. Patient felt comfortable enough to go home and is confident in his ability to care for the ostomy site. At the time of discharge the patient was stable and his abdominal exam was soft and benign aside from incisional site tenderness. Incision sites are clean dry and intact. [place] still place. Patient will follow-up in 2 weeks in the office with Dr. Gilliam. Status at Discharge Functional status at discharge: independent ambulation Overall status at discharge: patient is progressing back to baseline Time Attestation Discharge Coordination Time (in mins): 30 Quality: Safe Use of Opioids Does Pt have an Active Cancer Diagnosis on the Problem List?: No Quality: Stroke Does the patient have a stroke diagnosis?: No Physical Exam Vital Signs: Vital Signs: Last Vital Signs Temp 99.4 F 11/18/24 16:00 Pulse 82 11/18/24 16:00 Resp 18 11/18/24 16:00 BP 140/84 H 11/18/24 16:00 Pulse Ox 96 11/18/24 16:00 O2 Del Method Room Air 11/18/24 16:00 O2 Flow Rate 2 11/16/24 07:28 BMI result Body Mass Index 23.5 Const: General: comfortable and no acute distress Orientation/consciousness: patient oriented x3 Resp: Effort & Inspection: normal respiratory effort and able to speak in complete sentences GI: Other: Incision site brandy in place incisions are clean dry and intact, no surrounding erythema, warmth or purulent discharge. Ostomy site appropriate, beefy red Inspection: No Abdominal wall edema and No distended Palpation (GI): Soft to palpation, not firm, Tenderness to palpation present (GI) (Mild incisional site tenderness), no guarding and not rigid Neuro: General: patient oriented x3 Extrem: General: Yes normal to inspection DS: Data Data Completed and Pending Pending studies at discharge: Pending at discharge 11/15/24 15:08 Surgical [PTH] Routine Labs on day of discharge: Preliminary micro results at discharge 11/15/24 11:24 Blood Culture - Preliminary Blood - Venous No growth after 48 hours. 11/15/24 11:24 Blood Culture - Preliminary Blood - Venous No growth after 48 hours. Discharge Plan Discharge Anticipated Discharge Date/Time: 11/18/24 14:51 Patient Disposition: Home Health Service Discharge Diagnosis: diverticulitis with perforation of sigmoid colon; s/p Osorio's procedure Referrals: [facility] [Outside] - 3-5 Days ([facility] will call you to schedule nursing visits) Rodger Gilliam MD [Physician] - 2 Weeks Physician,Sherif J [Physician] - 1 Week Discharge Medications: New oxycodone-acetaminophen 5-325 mg tablet 1 tab PO Q6H PRN (Reason: pain) Qty: 20 0RF Rx Instructions: Partial Fill upon patient request. amoxicillin 875 mg tablet 875 mg PO BID Qty: 12 0RF docusate sodium [Colace] 100 mg capsule 100 mg PO BID Qty: 30 0RF Continued ibuprofen 800 mg tablet 800 mg PO TID PRN (Reason: pain) Discharge Orders: Discharge Order (Routine); Ordered 11/18/24 Ordered By: Rodger Gilliam Diet: Advance to usual diet Activity on Discharge: No heavy lifting Stand Alone Forms: Patient Portal Discharge page Print Language: Luxembourger Activity Restrictions/Additional Instructions: If the incision area is tender, you may apply an ice pack for short intervals (No more than 20 minutes on, followed by at least 20 minutes off). Do not apply heat. Do not use creams, lotions, or topical antibiotics unless instructed to do so by your surgeon. These can cause infection or allergic reaction. No lifting more than 20 lbs Okay to shower No strenuous activities Call the office for follow-up in 2 weeks - with Dr. Gilliam Call Your Doctor If: -Your temperature exceeds 101.5? F -You experience excessive pain or swelling -You have an unexpected reaction to medication -You have excessive bleeding -You experience continued vomiting/nausea -Your incision begins to separate -Your incision shows signs of infection such as increased redness, swelling, excessive pain, drainage (light blood or clear fluid is normal) or heat Ostomy recommendations: 1. Empty pouch before pouch change 2. Remove pouch using push/pull technique from top to bottom 3. Cleanse stoma and skin with tap water only - no soap or baby wipes 4. Pat dry 5. Measure stoma and cut new pouch no more than 1/8 inch larger than stoma and no smaller than stoma 6. If instructed by your ostomy nurse stretch barrier seal to the size of the stoma and press onto skin around stoma (up to the edge of the stoma but not onto the stoma) 7. Press the new pouch into place and hold for several minutes (close pouch tail) 8. Empty pouch when 1/3 to 1/2 full 9. Change pouch twice weekly on a schedule (for example, every Monday and ) and as needed for any leaking (feels like intense itch or burn at edge of stoma) Care Plan Goals: Returned to baseline health Health Concerns: Postop, from Osorio's procedure for perforated diverticulitis History of heavy alcohol use Plan of Treatment: Stoma care Oral pain med Follow up in the office Assessment: Doing well Patient Instructions: Colostomy Care (DC), Colostomy Irrigation (GEN), Colectomy Diet (DC), Colostomy Creation (DC) Discharge Date/Time: 11/18/24 17:45
[2024-11-18 17:11] VITALS: BP 140/76; PULSE 80; RESP 18; TEMP 37.1; O2SAT 97
== END 2024-11-18 17:45 | disposition home health service (06) | DRG 231 ==
LOC: HO.ED 11:37 → HO.EDOVER 11:47 → HO.S3 14:17
PROVIDERS: Surgery; Admitting Provider Physician Assistant Surgical; Emergency Provider Emergency Medicine Emergency Medical Services; PCP Internal Medicine; Visit Provider Physician Assistant Surgical
PROC: 0D1N0Z4 Bypass Sigmoid Colon to Cutaneous, Open Approach (ICD-10-PCS; CPT 49320; principal; 2024-11-15 13:00)
DX: K57.20 Diverticulitis of large intestine with perforation and abscess without bleeding (principal); F10.20 Alcohol dependence, uncomplicated; F17.210 Nicotine dependence, cigarettes, uncomplicated; K40.20 Bilateral inguinal hernia, without obstruction or gangrene, not specified as recurrent; Z71.6 Tobacco abuse counseling; G89.18 Other acute postprocedural pain
CPT/HCPCS: 36415; 74177; 80048; 80053; 81001; 83605; 85025; 86850; 86900; 86901; 87040; 88307; 99284; J0131; J0696; J1171; J1644; J1836; J1885; J2003; J2250; J2405; J2543; J2704; J2795; J3010; J7120; Q9967

== ENCOUNTER → 2024-11-15 07:23 | Outpatient (BNV) | payer BC, SELFPAY | PROVIDERS: Emergency Provider Emergency Medicine Emergency Medical Services; Visit Provider Radiology Diagnostic Radiology | DX: R14.0 Abdominal distension (gaseous) (principal) | CPT/HCPCS: 74177 ==

== ENCOUNTER → 2024-11-15 11:23 | Outpatient (BNV) | payer BC, SELFPAY | PROVIDERS: Admitting Provider Physician Assistant Surgical; Emergency Provider Emergency Medicine Emergency Medical Services; Visit Provider Student in an Organized Health Care Education/Training Program | DX: K63.1 Perforation of intestine (nontraumatic) (principal) | CPT/HCPCS: 99232; 99254 ==

== ENCOUNTER → 2024-11-15 11:23 | Outpatient (BNV) | payer BC, SELFPAY | PROVIDERS: Admitting Provider Physician Assistant Surgical; Emergency Provider Emergency Medicine Emergency Medical Services; Visit Provider Surgery | DX: Z93.3 Colostomy status (principal) | CPT/HCPCS: 99024; 99223; 99499; G0180 ==

== ENCOUNTER 2024-11-28 10:33 | Outpatient (REF) | payer BC, SELFPAY ==
[2024-11-28 11:12] LABS: MANUAL DIFF FLAG NO
[2024-11-28 11:33] LABS: Basophils Absolute Auto 0.2 X10*3/uL (0.0-0.2); Basophils Percent Auto 1.7 % (0-2); Eosinophils Absolute Auto 0.5 X10*3/uL (0.0-0.4); Eosinophils Percent Auto 4.9 % (0-4); Hematocrit 42.7 % (42.0-52.0); Hemoglobin 14.7 g/dl (14.0-18.0); Imm Gran Abs Auto 0.05 X10*3/uL (0.00-0.03); Imm Gran Pct Auto 0.5 % (0.0-0.4); Lymphocytes Absolute Auto 2.8 X10*3/uL (1.2-4.9); Lymphocytes Percent Auto 28.6 % (20-40); Mean Corpuscular HGB Conc 34.4 g/dl (31.0-36.0); Mean Corpuscular Hemoglobin 32.1 pg (27.0-33.0); Mean Corpuscular Volume 93.2 fL (80.0-98.0); Mean Platelet Volume 8.8 fL (9.4-12.4); Monocytes Absolute Auto 0.8 X10*3/uL (0.1-1.2); Monocytes Percent Auto 7.7 % (2-11); Neutrophils Absolute Auto 5.6 x10*3/uL (2.0-8.3); Neutrophils Percent Auto 56.6 % (45-73); Red Blood Count 4.58 X10*6/uL (4.60-5.80); Red Cell Distribution Width 13.2 % (11.0-16.0); White Blood Count 9.9 X10*3/uL (4.8-10.8)
[2024-11-28 11:34] LABS: Platelet Count 413 X10*3/uL (160-400)
[2024-11-28 11:37] LABS: Estimated Average Glucose 100 mg/dL; Hemoglobin A1C 117.0025 umol/L; Hemoglobin A1c % 5.1 % (<6.0); Total Hemoglobin (HGBA1C) 3584.5625 umol/L
[2024-11-28 12:16] LABS: Alanine Aminotransferase 35 U/L (0-40); Albumin Level 4.1 g/dL (3.5-5.0); Alkaline Phosphatase 64 U/L (39-117); Anion Gap 10 (12-20); Aspartate Amino Transferase 27 U/L (5-37); Bilirubin Total 0.5 mg/dL (0.0-1.0); Blood Urea Nitrogen 13 mg/dL (9-16); Calcium 9.5 mg/dL (8.4-10.2); Carbon Dioxide 29 mmol/L (22-29); Chloride 104 mmol/L (96-108); Estimated Glomerular Filt Rate > 60; Glucose Random 82 mg/dL (60-115); Potassium 4.1 mmol/L (3.3-5.1); Sodium 139 mmol/L (135-145); Total Protein 7.3 g/dL (6.5-8.0)
[2024-12-03 22:02] LABS: PSA, Ultra Sensitive 1.59 ng/mL
== END 2024-11-28 10:34 | disposition home or self-care (01) ==
LOC: HO.LAB 10:33
PROVIDERS: PCP Internal Medicine; Visit Provider Internal Medicine
DX: Z09 Encounter for follow-up examination after completed treatment for conditions other than malignant neoplasm (principal); F17.210 Nicotine dependence, cigarettes, uncomplicated; Z12.5 Encounter for screening for malignant neoplasm of prostate; R73.09 Other abnormal glucose
CPT/HCPCS: 36415; 80053; 83036; 84153; 85025; 96127

== ENCOUNTER 2024-11-28 10:33 | Outpatient (AMB) | payer BC, SELFPAY ==
--- NOTE | 2024-11-28 10:11 | MHC.PC.OV ---
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 Required: No Accompanied by: Self / Same As Patient Allergies No Known Allergies Allergy (Verified 11/28/24 10:41) Tobacco use date assessed: 11/28/24 Dental Screening Dental Screen Date: 11/28/24 Did you have a dental visit in the last 12 months?: Yes Did you have a dental problem in the last 6 months where you did not have access to dental care?: No HPI HPI Comments History of Present Illness Details 59 year old male with a history of bilateral inguinal hernias, hyperplastic colon polyp, diverticulosis, nicotine dependence presenting for hospital follow up He was hospitalized at [facility] from 11/15-11/18/24. Presented with one wk history of lower abdominal pain that acutely worsened overnight. The patient was seen in consult by the general surgery team on 11/15/24 for perforated diverticulitis. Patient was started on IV Zosyn by the ED. Later that day the patient was brought to the OR where Dr. Gilliam performed a hand assisted laparoscopic sigmoid colon resection with ostomy creation. The patient tolerated the procedure well. He is back at work. Has follow up scheduled with surgery for 12/02. Consideration of reversal 2-3 months per patient Tobacco use-LDCT utd Colonoscopy 2017 ROS CONSTITUTIONAL: Denies weight loss, fever and chills. HEENT: Denies changes in vision and hearing. RESPIRATORY: Denies SOB and cough. CV: Denies palpitations and CP GI: Denies abdominal pain, nausea, vomiting and diarrhea. : Denies dysuria and urinary frequency. MSK: Denies new myalgia and joint pain. SKIN: Denies rash and pruritus. NEUROLOGICAL: Denies headache PSYCHIATRIC: Denies recent changes in mood. PHYSICAL EXAM: GENERAL: Alert and oriented x 3. NAD EYES: EOMI. Anicteric. HENT: Moist mucous membranes. No scleral icterus. No cervical lymphadenopathy. LUNGS: Clear to auscultation bilaterally. CARDIOVASCULAR: Regular rate and rhythm. No murmur. No JVD. ABDOMEN: Soft, non-tender +bs EXTREMITIES: No edema. Non-tender. SKIN: No rashes or lesions. Warm. NEUROLOGIC: No focal neurological deficits. CN II-XII grossly intact PSYCHIATRIC: Cooperative. Appropriate mood and affect [facility] Medical History Nicotine dependence, cigarettes, uncomplicated History of colon polyps Surgical History History of cystoscopy History of colonoscopy (~08/26/16) Family History Mother No problems noted. Father No problems noted. Social History Household Members: Family Housing: House Do you presently have visiting nurse or other home services: No Alcohol intake: current Alcohol intake frequency: 3 or more drinks per day Alcohol type: beer Patient Tobacco Use Status: Current everyday Tobacco user Tobacco use type: Cigarette Cigarettes Per Day: 20 Years Smoked: (onset 13yo, 1ppd x 43yrs, 40pyh) e-Cigarette/Vaping Use: Currently Using Substance Use Type: Marijuana service: No Current occupational status: employed Cognitive needs: No Hearing needs: No Vision needs: Yes (reading glasses) Questionnaire PHQ-9 Over the last 2 weeks, how often have you been bothered by any of the following problems? 1. Little interest or pleasure in doing things: not at all 2. Feeling down, depressed, or hopeless: not at all 3. Trouble falling or staying asleep, or sleeping too much: not at all 4. Feeling tired or having little energy: not at all 5. Poor appetite or overeating: not at all 6. Feeling bad about yourself - or that you are a failure or have let yourself or your family down: not at all 7. Trouble concentrating on things, such as reading the newspaper or watching television: not at all 8. Moving or speaking so slowly that other people could have noticed. Or the opposite - being so fidgety or restless that you have been moving around a lot more than usual: not at all 9. Thoughts that you would be better off or of hurting yourself in some way: not at all Total score: 0 Depression Screening Interpretation: Negative Depression Screening Done: Yes 83573 - PHQ-9 Billing: Yes Source: Developed by Drs. Angel Pace, Christina Calloway, Leonel Galloway and colleagues, with an educational roxie from [employer]. Thrive Questionnaire Date Thrive assessed: 11/28/24 I am a: Patient Within the past 12 months, did the food you bought not last and you didn't have the money to get more?: Never true Within the past 12 months, did you worry whether your food would run out before you got money to buy more?: Never true Do you have trouble paying for medicines?: No Do you have trouble getting transportation to medical appointments?: No Do you have trouble paying your heating and electricity bill?: No Do you have trouble taking care of your child, family member or friend?: No Do you have trouble with day-to-day activities such as bathing, preparing meals, shopping, managing finances, etc.?: No Are you currently unemployed and looking for a job?: No Are you interested in more education?: No THRIVE Score: 0 AUDIT C Alcohol Use Questionnaire (AUDIT-C) 1. How often do you have a drink containing alcohol?: Monthly or less 2. How many drinks containing alcohol do you have on a typical day when you are drinking?: 1 or 2 3. How often do you have six or more drinks on one occasion?: Less than monthly Total Score: 2 TODD-7 AMB Questionnaire TODD-7 Date TODD - 7 assessed: 11/28/24 Feeling nervous, anxious, or on edge: 0 = Not at all Not being able to stop or control worryin = Not at all Worrying too much about different things: 0 = Not at all Trouble relaxin = Not at all Being so restless that it is hard to sit still: 0 = Not at all Becoming easily annoyed or irritable: 0 = Not at all Feeling afraid as if something awful might happen: 0 = Not at all Total TODD-7 score (0-4 normal; 5-9 mild; 10-14 moderate; 15-21 severe): 0 Source: Developed by Drs. Angel Pace, Leonel Bella and colleagues, with an educational roxie from [employer] Physical exam (Primary Care) Tobacco/Smoking Status: Tobacco use Status Tobacco use date assessed 11/28/24 11/28/24 10:12 Patient Tobacco Use Status Current everyday Tobacco 11/28/24 10:12 Tobacco use type Cigarette 11/28/24 10:12 e-Cigarette/Vaping Use Currently Using 11/28/24 10:12 PHQ-9: PHQ-9 Score PHQ-9: Total score 0 11/28/24 10:36 Depression Screening Interpretation: Negative Thrive Assessment: Date of Thrive Assessment Date Thrive assessed 11/28/24 11/28/24 10:12 Coding Level of Care Code Est Pt Level 4 (95045) Complex EM visit Add On G2211 Diagnoses Hospital discharge follow-up Z09 Diverticulitis K57.92 Status post Osorio procedure Z93.3 Additional Codes PHQ-9 - 08490 - PHQ-9 Billing: Yes ([id number]) Assessment & Plan Assessment & Plan (1) Hospital discharge follow-up: Code(s): Z09 - Encounter for follow-up examination after completed treatment for conditions other than malignant neoplasm Category: Medical (2) Diverticulitis: Code(s): K57.92 - Diverticulitis of intestine, part unspecified, without perforation or abscess without bleeding Category: Medical (3) Status post Osorio procedure: Code(s): Z93.3 - Colostomy status Category: Surgical Plan Hospitalization reviewed He has appropriate follow up in place Labs ordered today. FMLA completed Orders: Orders PSA, Ultra Sensitive Today F17.210 - Nicotine dependence, cigarettes, uncomplicated, Z09 - Encounter for follow-up examination after completed treatment for conditions other than malignant neoplasm, Z12.5 - Encounter for screening for malignant neoplasm of prostate Complete Blood Count Auto Diff Today F17.210 - Nicotine dependence, cigarettes, uncomplicated, Z09 - Encounter for follow-up examination after completed treatment for conditions other than malignant neoplasm, Z12.5 - Encounter for screening for malignant neoplasm of prostate Comprehensive Met. Panel Today F17.210 - Nicotine dependence, cigarettes, uncomplicated, Z09 - Encounter for follow-up examination after completed treatment for conditions other than malignant neoplasm, Z12.5 - Encounter for screening for malignant neoplasm of prostate Hemoglobin A1c Today R73.09 - Other abnormal glucose
[2024-11-28 10:38] VITALS: BP 122/80; PULSE 82; TEMP 36.5; O2SAT 99; BMI 21.6
== END 2024-11-28 10:57 | disposition home or self-care (01) ==
LOC: HO.HMCHD 10:34
PROVIDERS: PCP Internal Medicine; Visit Provider Internal Medicine
DX: Z09 Encounter for follow-up examination after completed treatment for conditions other than malignant neoplasm (principal); K57.92 Diverticulitis of intestine, part unspecified, without perforation or abscess without bleeding; Z93.3 Colostomy status

== ENCOUNTER 2024-12-02 15:01 | Outpatient (AMB) | payer BC, SELFPAY ==
--- NOTE | 2024-12-02 15:02 | A.OFFVIS_ITS ---
Vital Signs 12/02/24 15:06 Height 5 ft 7 in Weight 140 lb BMI 21.9 BP 129/74 Blood Pressure Location Rt brachial Position Sitting Pulse 81 Intake Visit Reasons: s/p perf diver 11/15 Intake Note: Patient here s/p laparoscopic sigmoid resection and end colostomy on 11-15-2024. Patient c/o: no concerns. Reports ostomy output normal. 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 He had undergone emergency sigmoid resection and end colostomy for perforated diverticulitis last 11/15/2024. He tolerated procedure well and was discharged on postop day 3. He says that he is doing well at home. He has good GI function. His stoma working well. [facility] Medical History Nicotine dependence, cigarettes, uncomplicated History of colon polyps Surgical History History of cystoscopy History of colonoscopy (~08/26/16) Family History Mother No problems noted. Father No problems noted. Social History Household Members: Family Housing: House Do you presently have visiting nurse or other home services: No Alcohol intake: current Alcohol intake frequency: 3 or more drinks per day Alcohol type: beer Patient Tobacco Use Status: Current everyday Tobacco user Tobacco use type: Cigarette Cigarettes Per Day: 20 Years Smoked: (onset 13yo, 1ppd x 43yrs, 40pyh) e-Cigarette/Vaping Use: Currently Using Substance Use Type: Marijuana service: No Current occupational status: employed Cognitive needs: No Hearing needs: No Vision needs: Yes (reading glasses) Review of Systems Const Denies chills and Denies fever(s) Card Denies chest pain Resp Denies cough GI Details: Has colostomy, working well Reports abdominal pain Physical Exam Vital Signs: Last Vital Signs Pulse 81 12/02/24 15:06 BP 129/74 12/02/24 15:06 BMI result Body Mass Index 21.9 Const General: comfortable and no acute distress Resp Effort & Inspection: normal respiratory effort Cardio Rate: regular rate GI Other: Colostomy functioning well, all incisions are well healed, brandy in place Palpation (GI): Soft to palpation, not firm and no guarding Assessment & Plan Assessment & Plan (1) Status post Osorio procedure: Code(s): Z93.3 - Colostomy status Category: Surgical Plan: He had undergone a Osorio's procedure for perforated diverticulitis last November 15. He is doing very well. I removed all his skin brandy. His incisions are well healed His stoma is functioning well I advised him to avoid lifting anything more than 20 lb for at least 2 more weeks I will see him again in the office in about month. His last colonoscopy was 9 years ago so I will likely schedule him for a colonoscopy via the stoma in the rectum prior to reversing his stoma. His was with him during the visit. Coding Level of Care Code Global (26123) Diagnoses Status post Osorio procedure Z93.3
[2024-12-02 15:06] VITALS: BP 129/74; PULSE 81; BMI 21.9
== END 2024-12-02 15:17 | disposition home or self-care (01) ==
LOC: HO.HGS 15:02
PROVIDERS: PCP Internal Medicine; Visit Provider Surgery
DX: Z93.3 Colostomy status (principal)
CPT/HCPCS: 99024

== ENCOUNTER 2025-01-06 14:34 | Outpatient (AMB) | payer BC, SELFPAY ==
--- NOTE | 2025-01-06 14:37 | MHC.OFFVIS ---
Vital Signs 01/06/25 14:44 Height 5 ft 7 in Weight 140 lb BMI 21.9 BP 124/78 Blood Pressure Location Lt brachial Position Sitting Intake Visit Reasons: one month follow up, post exploratory laparatomy Intake Note: c/o stinging around the stoma for 2 weeks. Having some pain with coughing. 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 no abnormal drainage Bull Gang Worker Required: No Information Interpreted: clinical only Accompanied by: Self / Same As Patient Allergies No Known Allergies Allergy (Verified 01/06/25 14:42) Medication List - Last Reconciled 01/06/25 by Giselle Claudio LPN ibuprofen 800 mg PO TID PRN Do you need a note to return to daycare/school/sports/work: No HPI HPI one month follow up, post exploratory laparatomy: Details: Patient overall doing well, describes some occasional burning pain around the stoma site. Reports output has been adequate. He did have concern because he had been passing some gas and small amounts of stool through his rectum. Patient has been eating well. He reports he has been doing a decent amount of physical activity, lawn work other work around the house. He does complain of an inguinal hernia that has been chronic, causes him pain in the scrotum. Hoping to have this repaired at time of reversal. [facility] Medical History Nicotine dependence, cigarettes, uncomplicated History of colon polyps Surgical History History of exploratory laparotomy (11/15/24) History of cystoscopy History of colonoscopy (~08/26/16) Family History Mother No problems noted. Father No problems noted. Social History Household Members: Family Housing: House Do you presently have visiting nurse or other home services: No Alcohol intake: current Alcohol intake frequency: 3 or more drinks per day Alcohol type: beer Patient Tobacco Use Status: Current everyday Tobacco user Tobacco use type: Cigarette Cigarettes Per Day: 20 Years Smoked: (onset 13yo, 1ppd x 43yrs, 40pyh) e-Cigarette/Vaping Use: Currently Using Substance Use Type: Marijuana service: No Current occupational status: employed Cognitive needs: No Hearing needs: No Vision needs: Yes (reading glasses) Review of Systems Const All systems reviewed & are unremarkable except as noted in HPI and below Physical Exam Vital Signs: Last Vital Signs BP 124/78 01/06/25 14:44 BMI result Body Mass Index 21.9 Const General: healthy appearing, comfortable and no acute distress Orientation/consciousness: patient oriented x3 Resp Effort & Inspection: normal respiratory effort and able to speak in complete sentences GI Other: Stoma present, functioning appropriately. Midline incision appears fully healed. Inspection: No distended Palpation (GI): Soft to palpation, not firm, nontender, no guarding and not rigid Neuro General: patient oriented x3 Assessment & Plan Assessment & Plan (1) Status post Osorio procedure: Code(s): Z93.3 - Colostomy status Category: Medical Plan 59-year-old male status post Osorio procedure for perforated diverticulitis on 11/15/2024 returning to the office for routine follow-up. Patient reports he is overall doing well appetite is at baseline, stoma is functioning appropriately. He does have some intermittent burning around the incision site, this may be related to some skin deterioration around the stoma or a possible parastomal hernia that can be closed at the time of reversal. Recommended that the patient keep this area clean and dry as much as possible and ensuring that the skin is dry prior to re-applying the bag. In regards to his rectal gas and stool, reassured the patient that this is not uncommon for patients and is no concern because it is likely some residual stool in the rectum that was present prior to the surgery. Patient does have a known chronic right inguinal hernia that he was hoping to have repaired at the time of reversal, however this is not possible due to universal being a dirty wound in the hernia repair involving a mesh which greatly increases the risk of infection of the mesh. Patient understands this, would prefer to proceed with reversal prior to hernia repair. In preparation for reversal, patient will have colonoscopy in 1 month. Patient has not had colonoscopy since 2016 so is due. Has history of colon polyps. He will have bowel prep sent to pharmacy. Surgical schedulers we will reach out with dates regarding colonoscopy and a follow-up visit after the colonoscopy to discuss results and likely scheduled for reversal. Patient understands this plan. He can follow up as needed sooner with any concerns On exam the patient's abdomen is soft and benign, midline incision appears to be well healed at this point stoma appears appropriate, functioning well Coding Level of Care Code Global (22343) Diagnoses Status post Osorio procedure Z93.3
[2025-01-06 14:44] VITALS: BP 124/78; BMI 21.9
--- OUTSIDE RECORDS SUMMARY | 2025-01-06 15:07 | XMS_ITS | Patient Health Record ---
Author Organization [facility] Address [address] [place] [address] Care Team Providers Care Train Director Name Role Phone Rodger Chris MD Primary Care Provider Angel Germain Unavailable [phone] Reason For Referral No Information Medications Medication SIG (Take, Route, Fr equency, Duration) Notes Start Date End Date Status Ibuprofen 800 MG 1-2 tablet Orally QD Active Problems Problem Type SNOMED Code ICD Code Onset Dates Problem Status W/U Status Risk Notes Problem 237045413 Encounter for screening for malignant neoplasm of colon (Z12.11) Active confirmed Problem Screening for malignant neoplasm of rectum (067088351) Encounter for screening for malignant neoplasm of rectum (Z12.12) Active confirmed Problem 89684778 Preprocedural examination (Z01.818) Active confirmed Plan Of Treatment Future Test Test Name Order Date COLONOSCOPY 06/17/2016 Insurance Providers Payer Name Payer Address Payer Phone Subscriber Number Group Number Insured Name Patient Relationship to Insured Coverage Start Date Coverage End Date [facility] [address] [place] [phone] [id number] LINNEA FELIX Self - patient is the insured Medical (General) History Medical History History ICD Code Denies NM,DM,CVA,renal disease Back and neck pain. Early COPD Surgical History Surgery Date(Month/Year) shoulder surgery-rotator cuff--left 2012
== END 2025-01-06 15:00 | disposition home or self-care (01) ==
LOC: HO.HGS 14:34
PROVIDERS: PCP Internal Medicine
DX: Z93.3 Colostomy status (principal)
CPT/HCPCS: 99024

== ENCOUNTER 2025-02-11 07:37 | Day surgery (SDC) | payer BC, SELFPAY ==
--- OUTSIDE RECORDS SUMMARY | 2025-01-22 13:15 | XMS_ITS | Clinical Summary ---
Author Organization [facility] Address [address] [address] Phone Care Team Providers Care Light Adjuster Name Role Phone Unknown, Unknown Primary Care Provider Mundo gilliam Social History Tobacco Use Types Packs/Day Years Used Date Smoking Tobacco: Never Assessed Education Answer Date Recorded Are you interested in more education? Not on ro e 10/28/2022 Are you concerned about learning? Not on file 10/28/2022 No 10/28/2022 No 10/28/2022 Digital Access Answer Date Recorded No 11/26/2022 No 11/26/2022 No 11/26/2022 Reliable internet access at home? Not on file 11/26/2022 Device with a working camera? Not on file Sex and Gender Information Value Date Recorded Sex Assigned at Not on file Legal Sex Male 9:40 PM EDT Gender Identity Not on file Sexual Orientation Not on file Plan of Treatment Health Maintenance Due Date Last Done Comments Adult Td,Tdap Booster 1966 LIPID PANEL 1966 DEPRESSION SCREENING 1978 SMOKING Hx and SMOKELESS TOB ACCO SCREENING 1979 HEPATITIS C SCREENING 1984 HIV ONE-TIME SCREENING (18-6 5 YEARS) 1984 COLOGUARD 2011 COLONOSCOPY 2011 COLORECTAL CANCER SCREENING 2011 FIT TEST 2011 FOBT 2011 SIGMOIDOSCOPY 2011 VIRTUAL COLONOSCOPY 2011 PNEUMOCOCCAL VACCINES (50+ y ears) (1 of 1 - PCV) 2016 ZOSTER VACCINES (1 of 2) 2016 COVID-19 VACCINE (2 - 2023-2 5 season) 2024 10/02/2020 HEPATITIS A VACCINES Aged Out No long er eligible based on patient's age to complete this topic HIB VACCINES Aged Out No longer eligi ble based on patient's age to complete this topic MENINGOCOCCAL VACCINES (ACWY) Aged Out No longer eligible based on patient's age to complete this topic MENINGOCOCCAL VACCINES (B) Aged Out N o longer eligible based on patient's age to complete this topic Medical Devices Not on file [place] [address] [place] [address] HMO POS [place] [address] [place] [address] [place] [address] [place] [address] [place] [address] [place] [address] [place] [address] HMO POS [facility] HMO POS Care Teams Light Adjuster Relationship Specialty Start Date End Date Unknown, Unknown, PCP - General 08/03/20 Additional Source Comments The information contained in this document represents components of the legal health record. It is not the complete legal health record.[facility]
--- OUTSIDE RECORDS SUMMARY | 2025-01-22 13:16 | XMS_ITS | Patient Health Record ---
Author Organization [facility] Address [address] [place] [address] Care Team Providers Care Workforce Investment Act Career Manager Name Role Phone Aries (RETIRED) Rodger PARK Primary Care Provide r Angel Singh Unavailable [phone] Reason For Referral No Information Medications Medication SIG (Take, Route, Fr equency, Duration) Notes Start Date End Date Status Ibuprofen 800 MG 1-2 tablet Orally QD Active Problems Problem Type SNOMED Code ICD Code Onset Dates Problem Status W/U Status Risk Notes Problem [id number] Encounter for screening for malignant neoplasm of colon (Z12.11) Active confirmed Problem Screening for malignant neoplasm of rectum (083935531) Encounter for screening for malignant neoplasm of rectum (Z12.12) Active confirmed Problem 19369214 Preprocedural examination (Z01.818) Active confirmed Plan Of Treatment Future Test Test Name Order Date COLONOSCOPY 06/17/2016 Insurance Providers Payer Name Payer Address Payer Phone Subscriber Number Group Number Insured Name Patient Relationship to Insured Coverage Start Date Coverage End Date [facility] [address] [place] [phone] [id number] LINNEA FELIX Self - patient is the insured Medical (General) History Medical History History ICD Code Denies ND,DM,CVA,renal disease Back and neck pain. Early COPD Surgical History Surgery Date(Month/Year) shoulder surgery-rotator cuff--left 2012
[2025-02-07 09:19] VITALS: BMI 21.9
--- NOTE | 2025-02-10 08:40 | HO.ANESPROP2 ---
Documented by User: Evelia Merlos NP 02/10/25 08:41 HPI - Anesthesia Eval Consult details Narrative: 59yo M for Colonoscopy via Stoma and Rectum s/p sigmoid resect with ostomy 10/2024 [facility] Active Problems Active Problems: All Active Problems Elevated glucose (Acute) Screening for prostate cancer (Acute) Hospital discharge follow-up (Acute) Status post Osorio procedure (Acute) Nicotine dependence, cigarettes, uncomplicated (Acute) Hematuria (Acute) Bilateral inguinal hernia (Acute) Past Medical History Medical History (Updated 02/11/25 @ 08:24 by Shivani Lee RN) Bilateral inguinal hernia Nicotine dependence, cigarettes, uncomplicated History of colon polyps Family History Family History Mother No problems noted. Father No problems noted. Family history of problems with anesthesia: No Surgical History Surgical History History of exploratory laparotomy (11/15/24) History of cystoscopy History of colonoscopy (~08/26/16) History of Problems with Anesthesia: No Social History Social History Household Members: Family Housing: House Do you presently have visiting nurse or other home services: No Alcohol intake: current Alcohol intake frequency: 3 or more drinks per day Alcohol type: beer Patient Tobacco Use Status: Current everyday Tobacco user Tobacco use type: Cigarette Cigarette Packs Per Day: 1 Cigarettes Per Day: 20.0 Years Smoked: (onset 13yo, 1ppd x 43yrs, 40pyh) e-Cigarette/Vaping Use: Currently Using Use of substances other than those prescribed or required for medical reasons: Yes Substance Use Type: Marijuana Substance Use Type Other:: smoked occasionally-last 2 wks ago Are you DNR?: No Advance Directives: No Advance Directives Information Provided: Yes service: No Current occupational status: employed Cognitive needs: No Hearing needs: No Vision needs: Yes (reading glasses) Meds Allergies Allergy/AdvReac Type Severity Reaction Status Date / Time No Known Allergies Allergy Verified 02/11/25 08:25 Home Medications ?Medication ?Instructions ?Recorded ?Confirmed ?Last Taken ?Type ibuprofen 800 mg tablet 800 mg PO TID PRN pain 11/19/21 02/11/25 02/10/25 History Exam Height,Weight and Vital Signs: Height 5 ft 7 in Weight 63.503 kg Assessment and Plan Assessment Anesthesia Assessment: Chart Reviewed Final Anesthetic Review Family History of Problems with Anesthesia: No History of Problems with Anesthesia: No Documented by User: Cayetano Kelly MD 02/11/25 08:37 [facility] Past Medical History Medical History (Updated 02/11/25 @ 08:24 by Shivani Lee RN) Bilateral inguinal hernia Nicotine dependence, cigarettes, uncomplicated History of colon polyps Family History Family History Mother No problems noted. Father No problems noted. Surgical History Surgical History History of exploratory laparotomy (11/15/24) History of cystoscopy History of colonoscopy (~08/26/16) Social History Social History Household Members: Family Housing: House Do you presently have visiting nurse or other home services: No Alcohol intake: current Alcohol intake frequency: 3 or more drinks per day Alcohol type: beer Patient Tobacco Use Status: Current everyday Tobacco user Tobacco use type: Cigarette Cigarette Packs Per Day: 1 Cigarettes Per Day: 20.0 Years Smoked: (onset 13yo, 1ppd x 43yrs, 40pyh) e-Cigarette/Vaping Use: Currently Using Use of substances other than those prescribed or required for medical reasons: Yes Substance Use Type: Marijuana Substance Use Type Other:: smoked occasionally-last 2 wks ago Are you DNR?: No Advance Directives: No Advance Directives Information Provided: Yes service: No Current occupational status: employed Cognitive needs: No Hearing needs: No Vision needs: Yes (reading glasses) Meds Allergies Allergy/AdvReac Type Severity Reaction Status Date / Time No Known Allergies Allergy Verified 02/11/25 08:25 Home Medications ?Medication ?Instructions ?Recorded ?Confirmed ?Last Taken ?Type ibuprofen 800 mg tablet 800 mg PO TID PRN pain 11/19/21 02/11/25 02/10/25 History Exam Airway Mallampati Class: II TM Dist: >3cm Neck ROM: Full Assessment and Plan Assessment Anesthesia Assessment: Anesthesia Plan Discussed Final Anesthetic Review NPO: Yes ASA Class: II Final Preanesthetic Review: No Changes in Pt Med Stat, Meds/Allgs Chart Reviewed, Consent Obtained/Reviewed, Anes Risks/Benef Reviewed and DNR Form (If Appl.) Patient Risk: Intermediate Procedure Risk: Low Anesthetic Plan Anesthetic Plan: TIVA Disposition: Standard PACU
[2025-02-11 08:08] VITALS: BMI 21.2
[2025-02-11 08:17] VITALS: BP 127/82; PULSE 79; RESP 15; TEMP 36.7; O2SAT 99
[2025-02-11] MEDS: Lactated Ringers 1,000 ML 100 ML IVCONT (08:23)
--- NOTE | 2025-02-11 09:52 | MHC.SHP ---
Pre-Procedural Eval Section A - 24 Hr Update-Section A only Date of Service: 02/11/25 Section B - Complete if H&P > 30 days Chief Complaint: Colostomy status Details of Present Illness: Had Osorio's procedure for perforated diverticulitis, for colonoscopy prior to reversal Relevant Family History (Specify if Yes): No Relevant Social History: None Present Medications: see Short Stay Collaborative assessment Medical History: Significant History (Nicotine dependence) Allergies: Allergies Allergy/AdvReac Type Severity Reaction Status Date / Time No Known Allergies Allergy Verified 02/11/25 08:25 Review of Systems Sugical H&P ROS: Negative: Constitution, Cardiovascular, Respiratory and Gastrointestinal Exam Surgical H&P Exam: Normal: Heart, Normal: Lungs and Normal: Extremities and Significant Findings: Abdomen (Has a colostomy) Plan Diagnosis/Plan: Unchanged I have reviewed the history and physical and performed a pertinent physical examination on my patient. No changes have occurred unless specified. Time Spent With Patient Time: Total time managing care of this patient today ____ minutes.
[2025-02-11 10:21] VITALS: BP 107/64; PULSE 80; RESP 12; TEMP 36.1; O2SAT 97
[2025-02-11 10:46] VITALS: BP 122/79; PULSE 69; RESP 18; TEMP 36.2; O2SAT 99
--- NOTE | 2025-02-11 11:11 | PC.NURSE ---
PATIENT'S RIDE WON'T BE HERE UNTIL APPROXIMATELY NOON. PATIENT DOES NOT WANT TO WAIT UPSTAIRS IN DISCHARGE AREA. PATIENT STATES HE WANTS TO HAVE A CIGARETTE. PATIENT SIGNED AN AMA FORM AND AFTER RECEIVING HIS DISCHARGE INSTRUCTIONS WAS BROUGHT DOWN TO THE [facility]IA . PATIENT STATES HE IS NOT DRIVING HOME.
--- NOTE | 2025-02-12 10:37 | W.PM.OPN ---
Operative Note Operative Note Date of Service: 02/11/25 Narrative: Preop diagnosis: Status post Osorio's procedure for diverticulitis Postop diagnosis: Occasional diverticuli in the left colon otherwise normal colonoscopy findings Procedure: Colonoscopy via the stoma in the rectum Surgeon: Rodger Gilliam MD The patient is a 59-year-old male who had undergone emergency sigmoid resection for diverticulitis disease in October 2024 for perforated diverticulitis. He is here for colonoscopy via the stoma in the rectum prior to reversal of his colostomy. Understands the technique of the procedure as was the risks, benefits, and alternatives He was brought to the operating room. He was placed in left lateral decubitus position under monitored anesthesia care. A surgical time-out was done. A full digital rectal exam was done. There were no palpable anal canal lesions. The tip of the Olympus colonoscope was gently introduced through the anal orifice advanced into the rectum until the entire rectal pouch was visualized. The rectal pouch was about 18 cm in length. There were no lesions seen in the rectum as well as the anal canal. There was no polyp. The scope was then withdrawn We proceeded to place the patient in supine position. We inserted the scope through the colostomy in the left side and this was gently advanced with insufflation all the way to the cecum. The cecum was visualized. The cecum was identified by visualization of the ileocecal valve as well as the appendiceal orifice. The cecal mucosa was unremarkable. The scope was gradually withdrawn with careful examination of the entire colonic mucosa being done with scope withdrawal. The patient has adequate bowel prep so it was unlikely that any lesion may have been missed. There was note of excisional diverticuli in the left colon The scope was then withdrawn completely The patient tolerated procedure well. There were no immediate complications He was transferred to the recovery room with stable vital signs He will be seen in the office to discuss plans for reversal of his colostomy.
== END 2025-02-11 11:16 | disposition home or self-care (01) ==
PROVIDERS: PCP Internal Medicine; Visit Provider Surgery
PROC: 0DJD8ZZ Inspection of Lower Intestinal Tract, Via Natural or Artificial Opening Endoscopic (ICD-10-PCS; CPT 45378; principal; 2025-02-11 10:00)
DX: Z12.11 Encounter for screening for malignant neoplasm of colon (principal); Z86.0101 Personal history of adenomatous and serrated colon polyps; K62.1 Rectal polyp; Z93.3 Colostomy status; K57.30 Diverticulosis of large intestine without perforation or abscess without bleeding; Z87.19 Personal history of other diseases of the digestive system; F17.210 Nicotine dependence, cigarettes, uncomplicated
CPT/HCPCS: 44388; 45330; 88305; J2003; J2704

== ENCOUNTER → 2025-02-11 07:37 | Outpatient (BNV) | payer BC, SELFPAY | PROVIDERS: PCP Internal Medicine; Visit Provider Surgery | DX: Z93.3 Colostomy status (principal) | CPT/HCPCS: 44388 ==

== ENCOUNTER 2025-02-24 10:51 | Outpatient (AMB) | payer BC, SELFPAY ==
--- NOTE | 2025-02-24 10:55 | A.OFFVIS_ITS ---
Vital Signs 02/24/25 11:18 Height 5 ft 7 in Weight 141 lb BMI 22.1 BP 127/74 Blood Pressure Location Rt brachial Position Sitting Pulse 83 Intake Visit Reasons: S/P Colonoscopy via stoma & rectum Intake Note: Patient here s/p colonoscopy via the stoma in the rectum. Patient c/o: no concerns. Reports procedure went well. Surgery: 02-11-2025 Bisque Kiln Placer Required: No Accompanied by: Self / Same As Patient Allergies No Known Allergies Allergy (Verified 02/24/25 11:18) HPI HPI S/P Colonoscopy via stoma & rectum: Details: 59-year-old male here a follow up for the presence of a colostomy. He had undergone emergency sigmoid resection and end colostomy for perforated diverticulitis last 11/15/2024. He tolerated the procedure well and was discharged on postop day 3. I had done his colonoscopy last 02/12/2025 prior to planning for reversal of his colostomy. He tolerated this colonoscopy well as well. He says that he is doing well at home. He has good GI function. His stoma is working well. [facility] Medical History Bilateral inguinal hernia Nicotine dependence, cigarettes, uncomplicated History of colon polyps Surgical History History of exploratory laparotomy (11/15/24) History of cystoscopy History of colonoscopy (02/11/25) Family History Mother No problems noted. Father No problems noted. Social History Household Members: Family Housing: House Do you presently have visiting nurse or other home services: No Alcohol intake: current Alcohol intake frequency: 3 or more drinks per day Alcohol type: beer Patient Tobacco Use Status: Current everyday Tobacco user Tobacco use type: Cigarette Cigarette Packs Per Day: 1 Cigarettes Per Day: 20.0 Years Smoked: (onset 13yo, 1ppd x 43yrs, 40pyh) e-Cigarette/Vaping Use: Currently Using Substance Use Type: Marijuana service: No Current occupational status: employed Cognitive needs: No Hearing needs: No Vision needs: Yes (reading glasses) Review of Systems Const Denies chills and Denies fever(s) Card Denies chest pain, Denies dyspnea and Denies dyspnea on exertion Resp Denies cough, Denies dyspnea and Denies dyspnea on exertion GI Details: Colostomy functioning well Denies hematochezia Denies hematuria and Denies difficulty urinating Musc Denies back pain and Denies limited range of motion Neuro Denies focal weakness and Denies convulsions Psych Denies depression and Denies mood swings Physical Exam Vital Signs: Last Vital Signs Pulse 83 02/24/25 11:18 BP 127/74 02/24/25 11:18 BMI result Body Mass Index 22.1 Const General: comfortable and no acute distress Orientation/consciousness: patient oriented x3 Neck Neck: Yes no lymphadenopathy Resp Auscultation: clear to auscultation bilaterally Cardio Rhythm: regular rhythm GI Other: Colostomy in the left side, functioning well Palpation (GI): Soft to palpation, nontender and no guarding Neuro General: patient oriented x3 Assessment & Plan Assessment & Plan (1) Status post Osorio procedure: Code(s): Z93.3 - Colostomy status Category: Surgical Plan: He has colostomy in place after emergency sigmoid resection for perforated diverticulitis in Oct, 2025. I did his colonoscopy 2 weeks ago and this shows occasional diverticuli in the left colon. The rectal pouch was about 18 cm long. There was no other pathology seen on colonoscopy. He is ready to have reversal of his colostomy. I explained the technique of hand assisted laparoscopic reversal of his ostomy with possible conversion to open and a diverting stoma. I explained the risks including but not limited to bleeding, infections, injury to other organs including bowel, urinary tract, anastomotic leak, wound complications, inherent risks of anesthesia, as well as the benefits and alternatives. I explained to him what to expect postoperatively. He understands and wants to proceed. He will need to undergo bowel prep. He will be on erythromycin and neomycin preop. The ERA protocol we will be observed. Medications: New sodium,potassium,mag sulfates 17.5-3.13-1.6 gram (Suprep Bowel Prep Kit) DILUTE; drink full amount early evening before AND next morning at least 2 hr before procedure; follow w 960 mL water PO 354 mL 0RF Coding Level of Care Code Est Pt Level 4 (29344) Diagnoses Status post Osorio procedure Z93.3
[2025-02-24 11:18] VITALS: BP 127/74; PULSE 83; BMI 22.1
--- OUTSIDE RECORDS SUMMARY | 2025-02-24 12:06 | XMS_ITS | Patient Health Record ---
Author Organization [facility] Address [address] [place] [address] Care Team Providers Care Lip Cutter And Scorer Name Role Phone Aries (RETIRED) Rodger PARK Primary Care Provide r Angel Singh Unavailable [phone] Reason For Referral No Information Medications Medication SIG (Take, Route, Fr equency, Duration) Notes Start Date End Date Status Ibuprofen 800 MG 1-2 tablet Orally QD Active Problems Problem Type SNOMED Code ICD Code Onset Dates Problem Status W/U Status Risk Notes Problem [id number] Encounter for screening for malignant neoplasm of colon (Z12.11) Active confirmed Problem Screening for malignant neoplasm of rectum (118834475) Encounter for screening for malignant neoplasm of rectum (Z12.12) Active confirmed Problem [id number] Preprocedural examination (Z01.818) Active confirmed Plan Of Treatment Future Test Test Name Order Date COLONOSCOPY 06/17/2016 Insurance Providers Payer Name Payer Address Payer Phone Subscriber Number Group Number Insured Name Patient Relationship to Insured Coverage Start Date Coverage End Date [facility] [address] [place] [phone] [id number] LINNEA FELIX Self - patient is the insured Medical (General) History Medical History History ICD Code Denies IA,DM,CVA,renal disease Back and neck pain. Early COPD Surgical History Surgery Date(Month/Year) shoulder surgery-rotator cuff--left 2012
--- OUTSIDE RECORDS SUMMARY | 2025-02-24 12:06 | XMS_ITS | Clinical Summary ---
Author Organization [facility] Address [address] [address] Phone Care Team Providers Care Owner Consulting Engineer Name Role Phone Unknown, Unknown Primary Care [...] topic Medical Devices Not on [place] [address] [place] [address]MO [place] [address] [place] [address] [place] [address] [place] [address] [place] [address] [place] [address] [place] [address] HMO POS [facility] HMO POS Care Teams Owner Consulting Engineer Relationship Specialty Start Date End Date Unknown, Unknown, PCP - General 08/03/20 Additional Source Comments The information contained in this document represents components of the legal health record. It is not the complete legal health record.[facility]
== END 2025-02-24 11:29 | disposition home or self-care (01) ==
LOC: HO.HGS 10:52
PROVIDERS: PCP Internal Medicine; Visit Provider Surgery
DX: Z93.3 Colostomy status (principal)
CPT/HCPCS: 99214

== ENCOUNTER 2025-03-14 08:08 | Inpatient (IN) | payer BC, SELFPAY ==
[2025-03-11 10:37] VITALS: BMI 22.1
[2025-03-14] VITALS (14 sets, daily range): BP systolic 127–159; BP diastolic 80–89; PULSE 71–86; RESP 13–19; TEMP 36.2–37.1; O2SAT 94–98; BMI 21.3; BMI 25.3
[2025-03-14] MEDS: Lactated Ringers 1,000 ML 100 ML IVCONT ×2 (08:43→15:18)
--- NOTE | 2025-03-14 08:49 | MHC.SHP ---
Pre-Procedural Eval Section A - 24 Hr Update-Section A only Date of Service: 03/14/25 The patient is an INPATIENT: No Changes since office visit: No Cold of Flu in the past 2 weeks, No New Medical Problems, No Changes in Medication and No Patient answered all questions The patient has been examined within 24 hours of the surgical procedure. The History & Physical has been completed within 30 days and I have reviewed it.: Yes Section B - Complete if H&P > 30 days Chief Complaint: for reversal of colostomy Allergies: Allergies Allergy/AdvReac Type Severity Reaction Status Date / Time No Known Allergies Allergy Verified 02/24/25 11:18 Plan I have reviewed the history and physical and performed a pertinent physical examination on my patient. No changes have occurred unless specified. Time Spent With Patient Time: Total time managing care of this patient today ____ minutes.
--- NOTE | 2025-03-14 09:30 | HO.ANESPROP2 ---
Documented by User: Evelia Merlos NP 03/12/25 11:01 HPI - Anesthesia Eval Consult details Narrative: 59yo M for Hand Assist Laparoscopic Colostomy Reversal,possible Open,possible Stoma, 03/14/25 s/p sigmoid resect with ostomy 10/2024 with GA-ETT 7 - no anesthetic issues ETOH abuse: 6-8 beers daily. Instructed gradual decrease preop. Denies previous withdrawal symptoms Smoker PMFSH Active Problems Active Problems: All Active Problems Elevated glucose (Acute) Screening for prostate cancer (Acute) Hospital discharge follow-up (Acute) Status post Osorio procedure (Acute) Hematuria (Acute) Bilateral inguinal hernia (Acute) Nicotine dependence, cigarettes, uncomplicated (Acute) Past Medical History Medical History (Updated 03/11/25 @ 10:37 by Sanjana Bravo RN) Perforated diverticulum Alcohol dependence Atypical chest pain Bilateral inguinal hernia Nicotine dependence, cigarettes, uncomplicated History of colon polyps Family History Family History Mother No problems noted. Father No problems noted. Family history of problems with anesthesia: No Surgical History Surgical History (Updated 03/10/25 @ 14:01 by Sanjana Bravo RN) Hx of colonoscopy History of exploratory laparotomy (11/15/24) History of cystoscopy History of colonoscopy (02/11/25) History of Problems with Anesthesia: No Social History Social History Household Members: Family Housing: House Do you presently have visiting nurse or other home services: No Alcohol intake: current Alcohol intake frequency: 3 or more drinks per day Alcohol type: beer Patient Tobacco Use Status: Current everyday Tobacco user Tobacco use type: Cigarette Cigarette Packs Per Day: 1 Cigarettes Per Day: 20.0 Years Smoked: (onset 13yo, 1ppd x 43yrs, 40pyh) e-Cigarette/Vaping Use: Currently Using Use of substances other than those prescribed or required for medical reasons: Yes Substance Use Type: Marijuana Substance Use Type Other:: occassionally Have you been hit, kicked, punched, or otherwise hurt by someone within the past year? If so, by whom?: No Spiritual Healthcare Practices: no Christian Healthcare Practices: no Cultural Healthcare Practices: no Are you DNR?: No Advance Directives: No (states is primary contact) Advance Directives on File: No Poor oral hygiene: No service: No Current occupational status: employed Cognitive needs: No Hearing needs: No Vision needs: Yes (reading glasses) Meds Allergies Allergy/AdvReac Type Severity Reaction Status Date / Time No Known Allergies Allergy Verified 02/24/25 11:18 Home Medications ?Medication ?Instructions ?Recorded ?Confirmed ?Last Taken ?Type ibuprofen 800 mg tablet 800 mg PO TID PRN pain 11/19/21 03/11/25 03/12/25 History Exam Height,Weight and Vital Signs: Height 5 ft 7 in Weight 63.957 kg Pertinent Lab Results Pertinent Lab Results: Laboratory Tests 11/28/24 11:11 WBC 9.9 Hgb 14.7 Hct 42.7 Plt Count 413 H D Sodium 139 Potassium 4.1 Chloride 104 Carbon Dioxide 29 BUN 13 Creatinine 0.74 Narrative Narrative: EKG 2023 Vent. Rate : 076 BPM Atrial Rate : 076 BPM P-R Int : 216 ms QRS Dur : 092 ms QT Int : 344 ms P-R-T Axes : 060 -12 045 degrees QTc Int : 387 ms Sinus rhythm with 1st degree A-V block Incomplete right bundle branch block Cannot rule out Inferior infarct (cited on or before 14-JUL-2020) Possible Anterior infarct (cited on or before 14-JUL-2020) Abnormal ECG When compared with ECG of 14-JUL-2020 19:45, No significant change was found Assessment and Plan Assessment Anesthesia Assessment: Chart Reviewed Final Anesthetic Review Family History of Problems with Anesthesia: No History of Problems with Anesthesia: No Documented by User: Shivani Pham DO 03/14/25 10:38 [facility] Past Medical History Medical History (Updated 03/11/25 @ 10:37 by Sanjana Bravo RN) Perforated diverticulum Alcohol dependence Atypical chest pain Bilateral inguinal hernia Nicotine dependence, cigarettes, uncomplicated History of colon polyps Family History Family History Mother No problems noted. Father No problems noted. Family history of problems with anesthesia: No Surgical History Surgical History (Updated 03/10/25 @ 14:01 by Sanjana Bravo RN) Hx of colonoscopy History of exploratory laparotomy (11/15/24) History of cystoscopy History of colonoscopy (02/11/25) History of Problems with Anesthesia: No Social History Social History Household Members: Family Housing: House Do you presently have visiting nurse or other home services: No Alcohol intake: current Alcohol intake frequency: 3 or more drinks per day Alcohol type: beer Patient Tobacco Use Status: Current everyday Tobacco user Tobacco use type: Cigarette Cigarette Packs Per Day: 1 Cigarettes Per Day: 20.0 Years Smoked: (onset 13yo, 1ppd x 43yrs, 40pyh) e-Cigarette/Vaping Use: Currently Using Use of substances other than those prescribed or required for medical reasons: Yes Substance Use Type: Marijuana Substance Use Type Other:: occassionally Have you been hit, kicked, punched, or otherwise hurt by someone within the past year? If so, by whom?: No Spiritual Healthcare Practices: no Christian Healthcare Practices: no Cultural Healthcare Practices: no Are you DNR?: No Advance Directives: No (states is primary contact) Advance Directives on File: No Poor oral hygiene: No service: No Current occupational status: employed Cognitive needs: No Hearing needs: No Vision needs: Yes (reading glasses) Meds Allergies Allergy/AdvReac Type Severity Reaction Status Date / Time No Known Allergies Allergy Verified 02/24/25 11:18 Home Medications ?Medication ?Instructions ?Recorded ?Confirmed ?Last Taken ?Type ibuprofen 800 mg tablet 800 mg PO TID PRN pain 11/19/21 03/11/25 03/12/25 History Exam Exam Date and Time: 03/14/25 0930 Height,Weight and Vital Signs: Height 5 ft 7 in Weight 63.957 kg Vital Signs Temperature 97.8 F 03/14/25 08:23 Pulse Rate 72 03/14/25 08:23 Respiratory Rate 16 03/14/25 08:23 Blood Pressure 127/80 03/14/25 08:23 Pulse Oximetry 96 03/14/25 08:23 Oxygen Delivery Method Room Air 03/14/25 08:23 Temperature 97.8 F 03/14/25 08:23 Pulse Rate 72 03/14/25 08:23 Respiratory Rate 16 03/14/25 08:23 Blood Pressure 127/80 03/14/25 08:23 Pulse Oximetry 96 03/14/25 08:23 Oxygen Delivery Method Room Air 03/14/25 08:23 Airway Mallampati Class: I TM Dist: >3cm Neck ROM: Full Loose/Missing/Broken Teeth: No (patient denies any loose or broken teeth) Heart: S1S2 Lungs: CTAB Assessment and Plan Assessment Anesthesia Assessment: Anesthesia Plan Discussed and Chart Reviewed Final Anesthetic Review Family History of Problems with Anesthesia: No History of Problems with Anesthesia: No NPO: Yes ASA Class: II Final Preanesthetic Review: No Changes in Pt Med Stat, Meds/Allgs Chart Reviewed, Consent Obtained/Reviewed and Anes Risks/Benef Reviewed Patient Risk: Low Procedure Risk: Intermediate Anesthetic Plan Anesthetic Plan: GA, Regional Block (bilateral TAP block and bilateral rectus sheath block) and Agree w/ Assess. and Plan Disposition: Standard PACU
[2025-03-14] MEDS: cefoTEtan disodium 2 GM VIAL IVPUSH (10:15)
--- NOTE | 2025-03-14 12:56 | P.OP_ITS ---
Operative Note Operative Note Date of Service: 03/14/25 Narrative: Preop diagnosis: Status post hand assisted laparoscopic Oosrio's procedure for perforated diverticulitis Postop diagnosis: The same Procedure: Hand assisted laparoscopic reversal of the colostomy, mobilization of the left colon all the way to the splenic flexure, with a diverting loop ileostomy , intraop flexible sigmoidoscopy Surgeon: Rodger Gilliam MD respiratory assistant: NAYAN Sunshine The patient is a 59-year-old male who had undergone emergency sigmoid resection and end colostomy for perforated diverticulitis last Oct, 2024. He is here for reversal. He understood the technique of the planned procedure as was the risks, benefits, and alternatives He was brought to the operating room. He was placed in modified lithotomy position under general anesthesia via endotracheal tube. A Allen catheter was inserted. A TAP block and rectus sheath block was done by the anesthesiologist. The abdomen and the perineum were prepped and draped in the usual sterile fashion. A surgical time-out was done. The patient received Cefotan 2 g IV preoperatively I had earlier closed the stoma with a running Polysorb 2-0 stitch I made a short infraumbilical midline incision with a blade 15. This carried down through the full-thickness of the skin and subcutaneous fat. We had to go through very fibrotic skin and subcutaneous tissue in view of his previous surgery. Eventually was able to identify the fascia. This was also markedly fibrotic. We divided the fascia gently until we are able to enter the peritoneum. With direct visualization, extended the fascial incision to optimize the length of the skin incision using electrocautery We then we are able to positioned the Rashid wound retractor, the GelPort along with the insufflating port. Laparoscopic visualization using a 30 degree 10 mm laparoscope, I inserted a 10 mm port in the epigastric area. Another port was placed in the right lower quadrant. The patient is placed in a steep head-down position. I inserted my left hand through the GelPort. I reflected the bowel loops away from the pelvis. I was able to identify the rectosigmoid and this was markedly adherent to the sacrum. To achieve mobilization I divided the peritoneal lining of the rectosigmoid on both the left and right side laterally using the LigaSure and I mobilize the rectosigmoid. I identified the whole lucas mp. Since this appeared to be a very long stump I proceeded to gently mobilize this some more until I was able to reach the more distal area. I created a mesenteric window. I divided this with an Endo-TIBURCIO 60 mm powered stapler. I resected this excess stump by dividing the mesentery using the LigaSure This stump was retrieved I then proceeded to desufflate. I proceeded to make an incision around the stoma with a blade 15. I carried down the incision through the full-thickness of the skin subcutaneous fat down to the fascia. I identified the interface between the bowel wall and the fascial edge and gently dissected this with the Cymbalta scissors. I was able to therefore enter the peritoneum. I followed this interface circumferentially until was able to completely mobilize the co lostomy off of the fascial defect using Metzenbaum scissors as well as electrocautery. I was therefore able to reduce this completely through the stoma opening into the peritoneal cavity. I closed the old colostomy a Maxon 1 stitch. I then re-insufflated. At this point, with laparoscopic visualization, I proceeded to mobilize more of the left colon all the way to the splenic flexure with the fissure as it appeared that we would not have adequate length to reach the deep pelvis with the stump. I used the LigaSure to divide the white line of Toldt and went around the splenocolic ligaments using the LigaSure until I was able to separate this from the spleen. By doing so we are able to adequate mobilization of the left colon and the remaining sigmoid and we were able to reach the pelvis with the stump. I then proceeded to desufflate. I brought out the sigmoid stump and excised the end with electrocautery. I was able to dilate this with the Sizer only up to 25 mm as the colon diameter appeared to be small. We created our pursestring with a Prolene 2-0. I positioned the anvil and the pursestring was tightened around the anvil. We had to apply additional sutures to tightened the edges of the stump around the anvil there was a lot of indurated and fibrotic tissue surrounding this because of his previous surgery process. We then proceeded to down the anvil and the stump into the peritoneal cavity. I re-insufflated. At this point the 1st assistant front end manager proceeded to advance the dilator the anus into the rectal stump. We replaced this with the EEA stapler apparatus. Targeted the area just anterior to the staple line of the rectal stump. The spike was activated. We attached the anvil onto the spike until this locked into place. The EEA stapler was activated and fired. We pulled out the staple apparatus. There were 2 intact circumferential anastomotic donuts We tested the anastomosis with insufflation with this immersed in irrigant fluid. There was note of bubbling seen on laparoscopy. I proceeded to then examine the anastomotic line and there seemed to be a significant defect on this. We therefore decided to repair this. We desufflated. I applied retractors on the incision to allow me to visualize the anastomotic site. I was able to visualize the defect on the anastomotic line, which was about 1.5 cm. I applied full-thickness running Polysorb 2-0 stitch to close this. I reinforced this is with a 2nd layer of seromuscular Polysorb 2-0 sutures as well We then retested this with insufflation and there was no bubbling. We proceeded to do an intraop flexible sigmoidoscopy. The 1st assistant front end manager advanced the scope through the anus all the way past the anastomosis. This time there was no bubbling noted. The anastomosis was examined and this appeared to be intact and widely patent. There was no signs of any ischemia. The scope was completely withdrawn. The of the presence of the anastomotic leak requiring reinforcement with sutures I decided it was safest to divert. I therefore identified the terminal ileum. I chose a loop that would come up as an end loop ileostomy. I created a mesenteric window. I passed a Que drain around this I created an another stomal opening on the right lower quadrant. A discoid piece of skin was excised with a blade 10. And I dissected through the anus layer with electrocautery. The anterior sheath was excised but I did muscle- splitting and divided the posterior sheath. I dilated this stoma opening to 3-0 my fingers I pulled up this stoma limb using the [place] drain. The [place] drain was then replaced with a stoma bridge We then re-examined laparoscopically. There was no sign of any bleeding or any bowel injury I re-irrigated and suctioned with the irrigant fluid. Once hemostasis confirmed, I had closed the fascia with a running Maxon 1 stitch. This was examined laparoscopically prior to removal of the ports and there was no evidence of any bowel caught by the sutures. All the ports were therefore removed All skin incisions were closed with skin brandy Stoma was matured by making a transverse incision on the anterior wall using electrocautery. I secured the stoma to the subdermal layer with a circumferential row or full-thickness Polysorb 3-0 sutures through the full- thickness of the bowel well in the subdermal layer Dressings were applied. The stoma appliance was applied and the procedure was completed The patient tolerated the procedure well. There were no immediate complications. Initial and final counts of sponges and instruments were correct. Estimated blood loss was about 75 cc The patient is extubated without difficulty and transferred to the recovery room with stable vital signs.
[2025-03-14] MEDS: Nicotine 21 MG PATCH.TD24 TRANSDERMA (15:23)
--- NOTE | 2025-03-14 15:43 | PHA.MEDREC ---
Addendum entered by Timothy Virk PharmD 03/14/25 15:45: reviewed Original Note: Pharmacy Consult ? Medication Reconciliation Pharmacy has reviewed the medication reconciliation done by nursing. claims match med list.
--- NOTE | 2025-03-14 15:45 | PM.EVENT ---
Event Note Date of Service: 03/14/25 Event Note: Seen postop Underwent reversal of colostomy with a diverting loop ileostomy earlier today Appears to have adequate pain control Drowsy Good urine output Stable vital signs Stoma viable Await return of GI function Pain management at bedside Time Spent With Patient Time: Total time managing care of this patient today ____ minutes.
[2025-03-15] VITALS (7 sets, daily range): BP systolic 122–172; BP diastolic 71–88; PULSE 71–88; RESP 16–22; TEMP 36.7–37.7; O2SAT 94–97
--- NOTE | 2025-03-15 00:04 | PC.NURSE ---
pt s f/c came out at 0005 03/15
[2025-03-15] MEDS: Lactated Ringers 1,000 ML 100 ML IVCONT ×2 (00:38→11:13)
[2025-03-15] MEDS: oxyCODONE HCl Immed Release 5 MG TABLET PO (05:59)
[2025-03-15 06:46] LABS: MANUAL DIFF FLAG NO
[2025-03-15 06:53] LABS: Hematocrit 44.5 % (42.0-52.0); Hemoglobin 15.7 g/dl (14.0-18.0); Imm Gran Abs Auto 0.08 X10*3/uL (0.00-0.03); Imm Gran Pct Auto 0.5 % (0.0-0.4); Lymphocytes Absolute Auto 0.9 X10*3/uL (1.2-4.9); Mean Corpuscular HGB Conc 35.3 g/dl (31.0-36.0); Mean Corpuscular Hemoglobin 32.0 pg (27.0-33.0); Mean Corpuscular Volume 90.8 fL (80.0-98.0); NRBC Abs Auto 0.000 X10*3/uL (0.0-0.012); NRBC Pct Auto 0.0 /100WBC (0.0-0.2); Platelet Count 243 X10*3/uL (160-400); Red Blood Count 4.90 X10*6/uL (4.60-5.80); White Blood Count 15.3 X10*3/uL (4.8-10.8)
[2025-03-15 07:11] LABS: Anion Gap 12 (12-20); Blood Urea Nitrogen 11 mg/dL (9-16); Calcium 8.9 mg/dL (8.4-10.2); Carbon Dioxide 25 mmol/L (22-29); Chloride 104 mmol/L (96-108); Creatinine Clr Calc Pharmacy 106.0; Estimated Glomerular Filt Rate > 60; Potassium 4.3 mmol/L (3.3-5.1); Sodium 137 mmol/L (135-145)
--- NOTE | 2025-03-15 09:24 | PM.PNGS ---
Subjective Subjective Date of Service: 03/16/25 Interval history: Describes pain on incisions Burning pain when urination after the Allen was removed No nausea or vomiting Hungry and wants to eat Physical Exam Vital Signs: Vital Signs: Last Vital Signs Temp 99.8 F 03/15/25 08:00 Pulse 73 03/15/25 08:00 Resp 16 03/15/25 08:00 BP 122/73 03/15/25 08:00 Pulse Ox 94 03/15/25 08:00 O2 Del Method Room Air 03/15/25 08:00 O2 Flow Rate 1 03/14/25 19:46 BMI result Body Mass Index 25.3 Const: General: comfortable and no acute distress Resp: Effort & Inspection: normal respiratory effort Cardio: Rate: regular rate GI: Other: Stoma with output, enteric fluid Dressings dry Palpation (GI): Soft to palpation and not firm Objective Data Active Medications Calcium Carbonate (Calcium Carbonate 750 Mg Tab.Chew) 750 mg PO Q4H PRN PRN Reason: Heartburn Lactated Ringer's (Lr) 1,000 mls @ 100 mls/hr IVCONT .Q10H [facility] Last Admin: 03/15/25 00:38 Dose: 100 mls/hr Documented By: PREETI Acetaminophen (Ofirmev) 1,000 mg in 100 mls @ 400 mls/hr IV Q6H [facility] Last Admin: 03/15/25 06:01 Dose: 400 mls/hr Documented By: PREETI Magnesium Hydroxide (Milk Of Magnesia 30 Ml Oral.Susp) 30 ml PO DAILY PRN On Hold: 03/14/25 15:04 Comment: Order held by Process Transfer PRN Reason: Constipation Melatonin (Melatonin 3 Mg Tablet) 6 mg PO BEDTIME PRN PRN Reason: Insomnia Morphine Sulfate (Morphine Sulfate 4 Mg/Ml Cartridge) 4 mg IVPUSH Q4H PRN; Protocol PRN Reason: Pain, Severe (Pain Scale 7-10) Last Admin: 03/15/25 01:41 Dose: 4 mg Documented By: PREETI Nicotine (Nicotine 21 Mg Patch.Td24) 21 mg TRANSDERMA DAILY [facility] Last Admin: 03/14/25 15:23 Dose: 21 mg Documented By: INGRID Oxycodone HCl (Oxycodone Hcl Immed Release 5 Mg Tablet) 5 mg PO Q4H PRN PRN Reason: Pain, Moderate(Pain Scale 4-6) Last Admin: 03/15/25 05:59 Dose: 5 mg Documented By: PREETI Sodium Chloride (0.9 % Sodium Chloride Flush 3 Ml Syringe) 3 ml IVFLUSH QSHIFT [facility] Last Admin: 03/15/25 00:25 Dose: Not Given Documented By: PREETI Non-Admin Reason: IV Running Labs 03/15/25 06:09 03/15/25 06:09 Labs: Laboratory Results - last 24 hr 03/14/25 03/15/25 09:03 06:09 MCV 90.8 MCH 32.0 MCHC 35.3 RDW 13.3 Plt Count 243 D MPV 9.4 Immature Gran % (Auto) 0.5 H Neut % (Auto) 86.8 H Lymph % (Auto) 6.1 L [place] % (Auto) 6.4 Eos % (Auto) 0.0 Baso % (Auto) 0.2 Lymph # (Auto) 0.9 L [place] # (Auto) 1.0 Eos # (Auto) 0.0 Baso # (Auto) 0.0 Abs Immat Gran (auto) 0.08 H Absolute Neuts (auto) 13.3 H Absolute Nucleated RBC 0.000 Nucleated RBC % (auto) 0.0 Anion Gap 12 Estim Creat Clear Calc 106.0 Estimated GFR > 60 Fasting Glucose 116 H Calcium 8.9 D Blood Type B Positive Antibody Screen NEGATIVE Procedures Date of Service Date of Service: 03/16/25 Progress Note: A&P Assessment and plan (1) Status post Osorio procedure: Status: Acute Assessment and Plan: Status post reversal, with protective loop ileostomy Pain management Stoma with output so we will try him on regular diet later today Encouraged ambulation Incentive spirometry Labs okay - white count elevation likely reactive from postop Stoma care Time Spent With Patient Time: Total time managing care of this patient today ____ minutes. Quality Stroke Does the patient have a stroke diagnosis?: No VTE Prior VTE?: No VTE Risk Level:: Medical - moderate - high VTE Device Contraindication: N/A - Device Ordered VTE Drug Contraindication: N/A - Med Ordered
[2025-03-15] MEDS: Nicotine 21 MG PATCH.TD24 TRANSDERMA (09:54)
--- NOTE | 2025-03-15 10:39 | MHC.CM.PN ---
pt lives with is indepedent and working dc plan home n/s
[2025-03-16] MEDS: Lactated Ringers 1,000 ML 60 ML IVCONT (01:14)
[2025-03-16 03:06] VITALS: BP 159/83; PULSE 77; RESP 19; TEMP 36.7; O2SAT 96
[2025-03-16 07:30] VITALS: BP 163/88; PULSE 72; RESP 16; TEMP 36.9; O2SAT 94
[2025-03-16] MEDS: Nicotine 21 MG PATCH.TD24 TRANSDERMA (07:59)
--- NOTE | 2025-03-16 10:06 | PM.PNGS ---
Subjective Subjective Date of Service: 03/16/25 Interval history: Tolerating diet Ileostomy functioning well Sore on incisions but pain control seems adequate He has been ambulating Physical Exam Vital Signs: Vital Signs: Last Vital Signs Temp 98.4 F 03/16/25 07:30 Pulse 72 03/16/25 07:30 Resp 16 03/16/25 07:30 BP 163/88 H 03/16/25 07:30 Pulse Ox 94 03/16/25 07:30 O2 Del Method Room Air 03/16/25 07:30 O2 Flow Rate 1 03/14/25 19:46 BMI result Body Mass Index 25.3 Const: General: comfortable and no acute distress Resp: Effort & Inspection: normal respiratory effort Cardio: Rate: regular rate GI: Other: Dressings taken down; all incisions clean and dry; packing removed on old colostomy site Ileostomy functioning well Palpation (GI): Soft to palpation, not firm and no guarding Objective Data Active Medications Calcium Carbonate (Calcium Carbonate 750 Mg Tab.Chew) 750 mg PO Q4H PRN PRN Reason: Heartburn Lactated Ringer's (Lr) 1,000 mls @ 60 mls/hr IVCONT .[id number] [facility] Last Admin: 03/16/25 01:14 Dose: 60 mls/hr Documented By: PREETI Acetaminophen (Ofirmev) 1,000 mg in 100 mls @ 400 mls/hr IV Q6H [facility] Last Admin: 03/16/25 06:51 Dose: Not Given Documented By: PREETI Non-Admin Reason: Patient Refused Magnesium Hydroxide (Milk Of Magnesia 30 Ml Oral.Susp) 30 ml PO DAILY PRN On Hold: 03/14/25 15:04 Comment: Order held by Process Transfer PRN Reason: Constipation Melatonin (Melatonin 3 Mg Tablet) 6 mg PO BEDTIME PRN PRN Reason: Insomnia Morphine Sulfate (Morphine Sulfate 4 Mg/Ml Cartridge) 4 mg IVPUSH Q4H PRN; Protocol PRN Reason: Pain, Severe (Pain Scale 7-10) Last Admin: 03/16/25 06:24 Dose: 4 mg Documented By: PREETI Nicotine (Nicotine 21 Mg Patch.Td24) 21 mg TRANSDERMA DAILY [facility] Last Admin: 03/16/25 07:59 Dose: 21 mg Documented By: JUANI Oxycodone HCl (Oxycodone Hcl Immed Release 5 Mg Tablet) 5 mg PO Q4H PRN PRN Reason: Pain, Moderate(Pain Scale 4-6) Last Admin: 03/15/25 05:59 Dose: 5 mg Documented By: PREETI Sodium Chloride (0.9 % Sodium Chloride Flush 3 Ml Syringe) 3 ml IVFLUSH QSHIFT [facility] Last Admin: 03/16/25 07:17 Dose: Not Given Documented By: JUANI Non-Admin Reason: IV Running Labs 03/15/25 06:09 03/15/25 06:09 Procedures Date of Service Date of Service: 03/16/25 Progress Note: A&P Assessment and plan (1) Status post Osorio procedure: Status: Acute Assessment and Plan: Status post reversal of colostomy with diverting loop ileostomy Ileostomy functioning well Looks well overall Abdomen is soft Tolerating diet Dressings changed He says that he feels ready to be discharged later today I will re-evaluate Plan to remove stoma bridge prior to discharge Time Spent With Patient Time: Total time managing care of this patient today ____ minutes. Quality Stroke Does the patient have a stroke diagnosis?: No VTE Prior VTE?: No VTE Risk Level:: Medical - moderate - high VTE Device Contraindication: N/A - Device Ordered VTE Drug Contraindication: N/A - Med Ordered
--- NOTE | 2025-03-16 10:22 | MHC.CM.PN ---
Patient is discharged to home self care. He has arranged for his to provide transportation home.
--- NOTE | 2025-03-16 13:21 | PM.EVENT ---
Event Note Date of Service: 03/16/25 Event Note: Seen on afternoon rounds He says he feels ready to be discharged later today Stoma functioning well He has been ambulating Says he has good pain control I removed the stoma bridge Follow up instructions reinforced with the patient Time Spent With Patient Time: Total time managing care of this patient today ____ minutes.
[2025-03-16 15:03] VITALS: BP 141/83; PULSE 81; RESP 16; TEMP 37.2; O2SAT 95
[2025-03-16 16:59] VITALS: BP 140/77; PULSE 86; RESP 16; TEMP 37.1; O2SAT 93
--- NOTE | 2025-03-17 13:03 | PM.DS ---
DS: Providers Provider Date of Service: 03/16/25 Date of admission: 03/14/25 08:08 Date of discharge: 03/16/25 Primary care physician: Huan Arias MD Admitting clinician: Rodger Gilliam Attending physician on admission: Rodger Gilliam Consults: 03/14/25 15:04 Consult to Ostomy Care Routine Attending physician on discharge: Destin Rojas DS: Diagnosis Discharge Diagnosis (1) Status post Osorio procedure: Status: Acute DS: Summary Hospital Course Hospital Course: Admission HPI: 59-year-old male here a follow up for the presence of a colostomy. He had undergone emergency sigmoid resection and end colostomy for perforated diverticulitis last 11/15/2024. He tolerated the procedure well and was discharged on postop day 3. I had done his colonoscopy last 02/12/2025 prior to planning for reversal of his colostomy. He tolerated this colonoscopy well as well. He says that he is doing well at home. He has good GI function. His stoma is working well. He has colostomy in place after emergency sigmoid resection for perforated diverticulitis in Oct, 2025. I did his colonoscopy 2 weeks ago and this shows occasional diverticuli in the left colon. The rectal pouch was about 18 cm long. There was no other pathology seen on colonoscopy. He is ready to have reversal of his colostomy. I explained the technique of hand assisted laparoscopic reversal of his ostomy with possible conversion to open and a diverting stoma. I explained the risks including but not limited to bleeding, infections, injury to other organs including bowel, urinary tract, anastomotic leak, wound complications, inherent risks of anesthesia, as well as the benefits and alternatives. I explained to him what to expect postoperatively. He understands and wants to proceed. He will need to undergo bowel prep. He will be on erythromycin and neomycin preop. The ERA protocol we will be observed. Hospital course: On 03/14/2025, patient presented to [facility] for reversal of colostomy status post Osorio. A Allen was placed preoperatively. Due to anastomotic leak, and reinforcement of the defect, the decision was made to divert with a loop ileostomy. Patient tolerated the procedure well and was transferred to the [facility] for further evaluation and management. Allen remained in place. Later that day patient was doing well, pain was well controlled, stoma appeared viable. POD 1, patient overall doing well, Allen was removed, patient had some dysuria after Allen was removed. He began to have some output from stoma, tolerating clear liquids well so diet was advanced later that day. PD 2 patient doing well tolerating diet ileostomy was functioning well, pain controlled patient is ambulating well. Feels like he is able to go home. On afternoon rounds patient was continuing to do well felt ready to be discharged. Pain control was good, the stoma bridge was removed. At the time of discharge patient was in stable condition abdomen exam was soft and benign aside from appropriate postoperative pain. Incisions clean and dry brandy in place stoma functioning properly. Status at Discharge Functional status at discharge: independent ambulation Overall status at discharge: patient is progressing back to baseline Time Attestation Discharge Coordination Time (in mins): 30 Quality: Safe Use of Opioids Does Pt have an Active Cancer Diagnosis on the Problem List?: No Quality: Stroke Does the patient have a stroke diagnosis?: No Physical Exam Vital Signs: Vital Signs: Last Vital Signs Temp 98.8 F 03/16/25 16:59 Pulse 86 03/16/25 16:59 Resp 16 03/16/25 16:59 BP 140/77 H 03/16/25 16:59 Pulse Ox 93 03/16/25 16:59 O2 Del Method Room Air 03/16/25 16:59 O2 Flow Rate 1 03/14/25 19:46 BMI result Body Mass Index 25.3 Const: General: comfortable and no acute distress Resp: Effort & Inspection: normal respiratory effort Cardio: Rate: regular rate GI: Other: Dressings taken down; all incisions clean and dry; packing removed on old colostomy site Ileostomy functioning well Palpation (GI): Soft to palpation, not firm and no guarding DS: Data Data Completed and Pending Completed studies during hospitalization [Text1]: Procedures Bypass Sigmoid Colon to Cutaneous, Open Approach (11/15/24) Excision of Sigmoid Colon, Percutaneous Endoscopic Approach, Hand-Assisted (11/15/24) Introduction of Anesthetic Agent into Peripheral Nerves and Plexi, Percutaneous Approach (11/15/24) Pending studies at discharge: Pending at discharge 03/14/25 12:28 Surgical [PTH] Routine Discharge Plan Discharge Anticipated Discharge Date/Time: 03/16/25 13:23 Patient Disposition: Home, Self-Care Discharge Diagnosis: Status post reversal of colostomy with diverting loop ileostomy Referrals: Rodger Gilliam MD [Physician, General Surgery] - 2 Weeks Huan Arias MD [Primary Care Provider, Internal Medicine] - 1 Week Discharge Medications: New oxycodone-acetaminophen 5-325 mg tablet 1 tab PO Q6H PRN (Reason: pain) Qty: 30 0RF Rx Instructions: Partial Fill upon patient request. ibuprofen 600 mg tablet 600 mg PO Q6H PRN (Reason: pain) Qty: 30 0RF Discontinued ibuprofen 800 mg tablet 800 mg PO TID PRN (Reason: pain) Discharge Orders: Discharge Order (Routine); Ordered 03/16/25 Ordered By: Rodger Gliliam Diet: Advance to usual diet Activity on Discharge: No heavy lifting Stand Alone Forms: Patient Portal Discharge page Print Language: Malawian Activity Restrictions/Additional Instructions: If the incision area is tender, you may apply an ice pack for short intervals (No more than 20 minutes on, followed by at least 20 minutes off). Do not apply heat. Do not use creams, lotions, or topical antibiotics unless instructed to do so by your surgeon. These can cause infection or allergic reaction. No lifting more than 20 lbs Okay to shower Okay to change dressings with gauze No strenuous activities Call the office for follow-up in 2 weeks - with Dr. Gilliam Call Your Doctor If: -Your temperature exceeds 101.5? F -You experience excessive pain or swelling -You have an unexpected reaction to medication -You have excessive bleeding -You experience continued vomiting/nausea -Your incision begins to separate -Your incision shows signs of infection such as increased redness, swelling, excessive pain, drainage (light blood or clear fluid is normal) or heat Care Plan Goals: Return to baseline Health Concerns: Postop pain Ileostomy in place Plan of Treatment: Oral pain meds Assessment: Doing well Patient Instructions: Ileostomy Care (DC), Ileostomy Diet (DC) Discharge Date/Time: 03/16/25 16:49
== END 2025-03-16 16:49 | disposition home or self-care (01) | DRG 230 ==
LOC: HO.SSSA 08:09 → HO.S3 12:46
PROVIDERS: Physician Assistant Surgical; Admitting Provider Surgery; PCP Internal Medicine; Visit Provider Surgery
PROC: 0DBE4ZZ Excision of Large Intestine, Percutaneous Endoscopic Approach (ICD-10-PCS; CPT 44227; principal; 2025-03-14 10:00)
DX: Z43.3 Encounter for attention to colostomy (principal); F10.20 Alcohol dependence, uncomplicated; F17.210 Nicotine dependence, cigarettes, uncomplicated; Z71.6 Tobacco abuse counseling; G89.18 Other acute postprocedural pain
CPT/HCPCS: 36415; 80048; 85025; 86850; 86900; 86901; 88304; 88305; J0131; J1100; J1171; J2003; J2250; J2270; J2405; J2704; J7120

== ENCOUNTER → 2025-03-14 08:08 | Outpatient (BNV) | payer BC, SELFPAY | PROVIDERS: Admitting Provider Surgery; PCP Internal Medicine; Visit Provider Surgery | DX: Z93.3 Colostomy status (principal) | CPT/HCPCS: 99024; 99499 ==

== ENCOUNTER 2025-03-26 14:38 | Outpatient (AMB) | payer BC, SELFPAY ==
--- NOTE | 2025-03-26 14:48 | A.OFFPC_ITS ---
Vital Signs 03/26/25 14:52 Height 5 ft 7 in Weight 136 lb BMI 21.3 BP 124/70 Blood Pressure Location Lt brachial Position Sitting Pulse 84 Pulse Source Pulse Oximeter Temp 97 F Temp Source Temporal Artery Scan Pulse Oximetry (%) 99 Oxygen Delivery Method Room Air Intake Visit Reasons: surgery f/u Job Recruiter Required: No Accompanied by: Self / Same As Patient Allergies No Known Allergies Allergy (Verified 03/26/25 14:48) Medication List - Last Reconciled 03/31/25 by NAYAN Jerome ibuprofen (IBU) 800 mg PO DAILY Tobacco use date assessed: 03/26/25 Dental Screening Dental Screen Date: 03/26/25 Did you have a dental visit in the last 12 months?: Yes Did you have a dental problem in the last 6 months where you did not have access to dental care?: No HPI HPI Comments History of Present Illness Details The patient is a 59-year-old male presenting for postoperative follow-up after a surgical procedure related to perforated diverticulitis and hernia management. The patient was hospitalized from the to the for a surgical reversal procedure, which involved creating a stoma on the opposite side. He reports increased soreness compared to previous surgeries, although he has not completed his oxycodone prescription due to a preference for minimal medication use. He requires a refill for his 800 mg ibuprofen prescription, which he uses for pain management. The patient expresses concern about the skin not adhering completely around the stoma, fearing potential infection. He anticipates staple removal during his upcoming appointment with the general surgeon on 04/02 The original issue was a perforated diverticulitis, which was discovered when the patient sought treatment for a hernia that had been symptomatic for about a year. The hernia surgery was postponed due to the diverticulitis diagnosis, and the patient is now managing both conditions. The patient has been using ibuprofen intermittently for chronic back and shoulde r pain, with increased frequency following the recent surgery. He denies any gastrointestinal side effects from the medication. 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 He has been advised to avoid strenuous activities to facilitate healing. Patient was informed and verbally consented to the use of an ambient scribe for clinic note documentation during this visit. [facility] Medical History Alcohol dependence Atypical chest pain Bilateral inguinal hernia History of colon polyps Nicotine dependence, cigarettes, uncomplicated Perforated diverticulum Surgical History (Updated 03/28/25 @ 11:03 by LURDES Candelaria) History of colonoscopy (02/11/25) History of cystoscopy History of exploratory laparotomy (11/15/24) Hx of colonoscopy Hx of surgical procedure (~03/14/25) Family History Mother No problems noted. Father No problems noted. Social History Household Members: Spouse Household Members Other:: grandchildren Housing: House Are you a primary reproductive healthcare assistant to a significant other at home: No Do you presently have visiting nurse or other home services: No Alcohol intake: current Alcohol intake frequency: 3 or more drinks per day Alcohol type: beer Comment: COUNTS CORRECT Patient Tobacco Use Status: Current everyday Tobacco user Tobacco use type: Cigarette Cigarette Packs Per Day: 1 Cigarettes Per Day: 20.0 Years Smoked: (onset 13yo, 1ppd x 43yrs, 40pyh) e-Cigarette/Vaping Use: Currently Using Second Hand Smoke Exposure: No Substance Use Type: Marijuana service: No Current occupational status: employed Cognitive needs: No Hearing needs: No Vision needs: Yes (reading glasses) Questionnaire PHQ-9 Over the last 2 weeks, how often have you been bothered by any of the following problems? 1. Little interest or pleasure in doing things: not at all 2. Feeling down, depressed, or hopeless: not at all 3. Trouble falling or staying asleep, or sleeping too much: not at all 4. Feeling tired or having little energy: not at all 5. Poor appetite or overeating: not at all 6. Feeling bad about yourself - or that you are a failure or have let yourself or your family down: not at all 7. Trouble concentrating on things, such as reading the newspaper or watching television: not at all 8. Moving or speaking so slowly that other people could have noticed. Or the opposite - being so fidgety or restless that you have been moving around a lot more than usual: not at all 9. Thoughts that you would be better off or of hurting yourself in some way: not at all Total score: 0 Source: Developed by Drs. Angel Pace, Christina Calloway, Leonel Galloway and colleagues, with an educational roxie from [employer]. Thrive Questionnaire Date Thrive assessed: 03/26/25 I am a: Patient Within the past 12 months, did the food you bought not last and you didn't have the money to get more?: Never true Within the past 12 months, did you worry whether your food would run out before you got money to buy more?: Never true Do you have trouble paying for medicines?: No Do you have trouble getting transportation to medical appointments?: No Do you have trouble paying your heating and electricity bill?: No Do you have trouble taking care of your child, family member or friend?: No Do you have trouble with day-to-day activities such as bathing, preparing meals, shopping, managing finances, etc.?: No Are you currently unemployed and looking for a job?: No Are you interested in more education?: No THRIVE Score: 0 AUDIT C Alcohol Use Questionnaire (AUDIT-C) 1. How often do you have a drink containing alcohol?: Never 3. How often do you have six or more drinks on one occasion?: Never Total Score: 0 TODD-7 AMB Questionnaire TODD-7 Date TODD - 7 assessed: 03/26/25 Feeling nervous, anxious, or on edge: 0 = Not at all Not being able to stop or control worryin = Not at all Worrying too much about different things: 0 = Not at all Trouble relaxin = Not at all Being so restless that it is hard to sit still: 0 = Not at all Becoming easily annoyed or irritable: 0 = Not at all Feeling afraid as if something awful might happen: 0 = Not at all Total TODD-7 score (0-4 normal; 5-9 mild; 10-14 moderate; 15-21 severe): 0 Source: Developed by Drs. Angel Pace, Leonel Bella and colleagues, with an educational roxie from [employer]. Review of Systems Const Details: CONSTITUTIONAL No fever HEAD/NECK Negative RESPIRATORY Negative CARDIOVASCULAR Negative GASTROINTESTINAL Reports soreness post-surgery, denies gastrointestinal side effects from ibuprofen NEUROLOGICAL Negative PSYCHIATRIC Negative Physical exam (Primary Care) Vital Signs: Last Vital Signs Temp 97 F 03/26/25 14:52 Pulse 84 03/26/25 14:52 BP 124/70 03/26/25 14:52 Pulse Ox 99 03/26/25 14:52 Oxygen Delivery Method Room Air 03/26/25 14:52 BMI result Body Mass Index 21.3 GENERAL Well developed, Well nourished, in no apparent distress HEENT Head-Normocephalic Eyes- PERRLA, EOMI, Conjuctiva clear, lids WNL Ears- Canals clear, TMs WNL Mouth/Throat-No lesions, no erythema, no exudate Neck- Supple, No lymphadenopathy, thyroid WNL RESPIRATORY Normal I:E, Clear to auscultation CARDIOVASCULAR Regular, rate and rhythm, No murmurs or rubs GASTROINTESTINAL Soft, nontender, normal bowel sounds, no masses NEUROLOGICAL Gait normal PSYCHIATRIC Oriented to person, place and time Mood and affect WNL Appearance WNL Speech WNL Thought processes WNL Tobacco/Smoking Status: Tobacco use Status Tobacco use date assessed 03/26/25 03/26/25 14:49 Patient Tobacco Use Status Current everyday Tobacco 03/26/25 14:49 Tobacco use type Cigarette 03/26/25 14:49 e-Cigarette/Vaping Use Currently Using 03/26/25 14:49 PHQ-9: PHQ-9 Score PHQ-9: Total score 0 03/26/25 14:49 Thrive Assessment: Date of Thrive Assessment Date Thrive assessed 03/26/25 03/26/25 14:49 Coding Level of Care Code Established Pt Est Pt Level 3 (32469) Patient Type Established Diagnoses Status post Osorio procedure Z93.3 Time Spent (min) 25 Comment Time spent on chart review, medication reconciliation, H&P, patient education, orders Assessment & Plan Assessment & Plan (1) Status post Osorio procedure: Code(s): Z93.3 - Colostomy status Category: Surgical Plan: The patient is scheduled for a follow-up appointment with the general surgeon to assess the healing of the stoma and potential removal of brandy. He is advised to continue using ibuprofen for pain management and to avoid strenuous activities to facilitate healing. Plan I discussed with the patient the importance of attending the follow-up appointment with the general surgeon to evaluate the stoma and consider staple removal. We reviewed the use of ibuprofen for pain management and emphasized the need to avoid strenuous activities to ensure proper healing. Medications: New ibuprofen (IBU) with food 800 mg PO DAILY 180 tabs 1RF prn pain Patient Instructions: - Attend follow-up appointment with the general surgeon for stoma evaluation and staple removal. - Continue using ibuprofen as needed for pain management. - Avoid strenuous activities to facilitate healing.
[2025-03-26 14:52] VITALS: BP 124/70; PULSE 84; TEMP 36.1; O2SAT 99; BMI 21.3
--- OUTSIDE RECORDS SUMMARY | 2025-03-26 17:13 | XMS_ITS | Clinical Summary ---
Author Organization [facility] Address [address] [address] Phone Care Team Providers Care Loss Control Consultant Name Role Phone Unknown, Unknown Primary Care [...] 2016 ZOSTER VACCINES (1 of 2) 2016 INFLUENZA VACCINE (#1) 2025 03/23/2017 COVID-19 VACCINE (2 - 2024-2 6 season) 2025 10/02/2020 HEPATITIS A VACCINES Aged Out No [...] topic Medical Devices Not on file Insurance HMO [place] [address] [place] [address] HMO POS HMO [place] [address] [place] [address] HMO POS HMO POS HMO [place] [address] [place] [address] HMO POS Care Teams Loss Control Consultant Relationship Specialty Start Date End Date Unknown, Unknown, PCP - General 08/03/20 Additional Source Comments The information contained in this document represents components of the legal health record. It is not the complete legal health record.[facility]
--- OUTSIDE RECORDS SUMMARY | 2025-03-26 17:13 | XMS_ITS | Patient Health Record ---
Author Organization [facility] Address [address] [place] [address] Care Team Providers Care Decker Operator Name Role Phone Aries (RETIRED) Rodger PARK Primary Care Provide r Manolo Bonds Angel Unavailable [phone] Reason For Referral No Information Medications Medication SIG (Take, Route, Fr equency, Duration) Notes Start Date End Date Status Ibuprofen 800 MG 1-2 tablet Orally QD Active Problems Problem Type SNOMED Code ICD Code Onset Dates Problem Status W/U Status Risk Notes Problem [id number] Encounter for screening for malignant neoplasm of colon (Z12.11) Active confirmed Problem Screening for malignant neoplasm of rectum ([id number]) Encounter for screening for malignant neoplasm of rectum (Z12.12) Active confirmed Problem [id number] Preprocedural examination (Z01.818) Active confirmed Plan Of Treatment Future Test Test Name Order Date COLONOSCOPY 06/17/2016 Insurance Providers Payer Name Payer Address Payer Phone Subscriber Number Group Number Insured Name Patient Relationship to Insured Coverage Start Date Coverage End Date [facility] [address] [place] [phone] [id number] LINNEA FELIX Self - patient is the insured Medical (General) History Medical History History ICD Code Denies HI,DM,CVA,renal disease Back and neck pain. Early COPD Surgical History Surgery Date(Month/Year) shoulder surgery-rotator cuff--left 2012
== END 2025-03-26 15:27 | disposition home or self-care (01) ==
LOC: HO.HMCHD 14:38
PROVIDERS: PCP Internal Medicine; Visit Provider Physician Assistant Medical
DX: K57.93 Diverticulitis of intestine, part unspecified, without perforation or abscess with bleeding (principal); Z93.3 Colostomy status

== ENCOUNTER 2025-04-02 13:30 | Outpatient (AMB) | payer BC, SELFPAY ==
--- NOTE | 2025-04-02 13:34 | A.OFFVIS_ITS ---
Vital Signs 04/02/25 13:35 Height 5 ft 7 in Weight 133 lb BMI 20.8 Intake Visit Reasons: s/p GODINEZ lap reversal of colostomy Intake Note: This patient presents for post-op assessment status post Hand assisted laparoscopic reversal of the colostomy, mobilization of the left colon all the way to the splenic flexure, with a diverting loop ileostomy , intraop flexible sigmoidoscopy. (03/14/2025) Pt c/o; ? infection one of the incision, reports pain. [employer] Required: No Allergies No Known Allergies Allergy (Verified 03/26/25 14:48) HPI HPI s/p GODINEZ lap reversal of colostomy: Details: He had undergone reversal of the colostomy with an end-to-end to sigmoid anastomosis, diverting loop ileostomy last 03/14/2025 He complains of pain on his incisions. He has stoma has been functioning well. He also describes some burning of his testicle when he urinates. [facility] Medical History Ileostomy in place Perforated diverticulum Alcohol dependence Atypical chest pain Bilateral inguinal hernia Nicotine dependence, cigarettes, uncomplicated History of colon polyps Surgical History Hx of surgical procedure (~03/14/25) Hx of colonoscopy History of exploratory laparotomy (11/15/24) History of cystoscopy History of colonoscopy (02/11/25) Family History Mother No problems noted. Father No problems noted. Social History Household Members: Spouse Household Members Other:: grandchildren Housing: House Are you a primary respite care provider to a significant other at home: No Do you presently have visiting nurse or other home services: No Alcohol intake: current Alcohol intake frequency: 3 or more drinks per day Alcohol type: beer Comment: COUNTS CORRECT Patient Tobacco Use Status: Current everyday Tobacco user Tobacco use type: Cigarette Cigarette Packs Per Day: 1 Cigarettes Per Day: 20.0 Years Smoked: (onset 13yo, 1ppd x 43yrs, 40pyh) e-Cigarette/Vaping Use: Currently Using Second Hand Smoke Exposure: No Substance Use Type: Marijuana service: No Current occupational status: employed Cognitive needs: No Hearing needs: No Vision needs: Yes (reading glasses) Review of Systems Const Denies chills and Denies fever(s) Card Denies chest pain Resp Denies cough GI Details: Has ileostomy Physical Exam Vital Signs: BMI result Body Mass Index 20.8 Const Other: Ambulating General: comfortable and no acute distress Resp Effort & Inspection: normal respiratory effort GI Other: Ileostomy in place, functioning well, all incisions were well healed, brandy in place Palpation (GI): Soft to palpation, not firm, nontender and no guarding Assessment & Plan Assessment & Plan (1) Ileostomy in place: Code(s): Z93.2 - Ileostomy status Category: Medical Plan: He is doing very well after reversal of his colostomy with rectosigmoid end-to-end anastomosis and diverting loop ileostomy I removed all his skin brandy. The wound edges remained well apposed He describes burning in the testicle when he void so I will set him up for a urinalysis as well. I will see him in the office after his enema test next month. Orders: Orders FL barium enema Today Z93.2 - Ileostomy status UA and rflx microscopic Today Z93.2 - Ileostomy status Coding Level of Care Code Global (71892) Diagnoses Ileostomy in place Z93.2
[2025-04-02 13:35] VITALS: BMI 20.8
--- OUTSIDE RECORDS SUMMARY | 2025-04-02 14:44 | XMS_ITS | Clinical Summary ---
Author Organization [facility] Address [address] [address] Phone Care Team Providers Care Experimental Welder Name Role Phone Unknown, Unknown Primary Care [...] Devices Not on file Insurance [place] [address] [address] [place] [address] [address] [place] [address] HMO POS HMO [place] [address] [place] [address] HMO POS Care Teams Experimental Welder Relationship Specialty Start Date End Date Unknown, Unknown, PCP - General 08/03/20 Additional Source Comments The information contained in this document represents components of the legal health record. It is not the complete legal health record.[facility]
== END 2025-04-02 14:13 | disposition home or self-care (01) ==
LOC: HO.HGS 13:31
PROVIDERS: PCP Internal Medicine; Visit Provider Surgery
DX: Z93.2 Ileostomy status (principal)
CPT/HCPCS: 99024

== ENCOUNTER 2025-04-02 13:30 | Outpatient (REF) | payer BC, SELFPAY ==
[2025-04-02 14:36] LABS: Appearance Urine Clear; Glucose Urine UA Negative (Negative); PH 5.5 (5.0-9.0); Specific Gravity - Urine 1.025 (1.005-1.025); UMIC TRIGGER UA YES
== END 2025-04-02 13:31 | disposition home or self-care (01) ==
LOC: HO.LAB 13:30
PROVIDERS: PCP Internal Medicine; Visit Provider Surgery
DX: Z48.815 Encounter for surgical aftercare following surgery on the digestive system (principal); Z93.2 Ileostomy status
CPT/HCPCS: 81001

== ENCOUNTER 2025-04-03 12:16 | Emergency (ER) | payer BC, SELFPAY ==
[2025-04-03] VITALS (7 sets, daily range): BP systolic 106–128; BP diastolic 64–78; PULSE 83–104; RESP 16–18; TEMP 36.7–36.9; O2SAT 96–99
--- NOTE | ~2025-04-03 | CT_ITS ---
CLINICAL HISTORY: RIGHT SIDED ABD PAIN CT abdomen and pelvis without contrast Comparison: CT/CO/SR - CT ABDOMEN PELVIS W IV CON - 11/15/24 10:[address]/SR - CT ABDOMEN PELVIS W IV CON - 11/15/24 10:31 EDT Findings: No consolidation at the lung bases. Unremarkable gallbladder and bladder. Splenic granulomatosis. No hydronephrosis or nephrolithiasis. The other solid organs are unremarkable. Dilation of the small bowel, measuring up to 3.2 cm. There is small bowel wall thickening. No discrete transition point. Right ileostomy. A normal appendix is identified. Rectosigmoid anastomotic sutures. Mild stranding adjacent to the anastomosis. No fluid collection or free air Colonic diverticulosis. No aneurysm. Severe calcified atherosclerotic disease. No lymphadenopathy. No ascites. No acute osseous abnormality. Impression: Dilation of the small bowel without a discrete transition point may indicate ileus. There is wall thickening of the small bowel which could be due to enteritis, infectious/inflammatory. Reactive wall thickening could be considered. Rectosigmoid anastomotic sutures with adjacent stranding. No fluid collection or free air. This document has been electronically signed by: Rashida Lee MD on 04/03/2025 21:43:59
--- NOTE | ~2025-04-03 | US_ITS ---
EXAMINATION: US SCROTUM CLINICAL INFORMATION: Testicular pain. 59-year-old male. COMPARISON: None available. TECHNIQUE: A sonogram of the scrotum was performed assessing cole-scale appearance and color Doppler flow. Spectral Doppler analysis of the arterial and venous flow were performed in the testes bilaterally. FINDINGS: RIGHT: Right testicle measures 4.5 x 2.3 x 3.2 cm, volume 70.3 mL. No focal testicular parenchymal lesions are visualized. Spectral Doppler analysis of the arterial and venous flow is normal in the right testis. Right epididymal head is normal in size. Small right hydrocele. No varicocele. Right epididymal Doppler flow is normal. LEFT: Left testicle measures 4.4 x 2.2 x 2.9 cm, volume 14.7 mL. No focal testicular parenchymal lesions are visualized. Spectral Doppler analysis of the arterial and venous flow is normal in the left testis. Left epididymal head is normal in size. Small left hydrocele. No varicocele. Left epididymal Doppler flow is normal. US/US scrotum IMPRESSION: 1. Small bilateral hydroceles. 2. Otherwise, normal scrotal ultrasound. Electronically signed by: Ulysses Thomas MD 04/03/2025 01:29 PM EDT
--- NOTE | ~2025-04-03 | US_ITS ---
EXAMINATION: US SCROTUM CLINICAL INFORMATION: Testicular pain. 59-year-old male. COMPARISON: None available. TECHNIQUE: A sonogram of the scrotum was performed assessing cole-scale appearance and color Doppler flow. Spectral Doppler analysis of the arterial and venous flow were performed in the testes bilaterally. FINDINGS: RIGHT: Right testicle measures 4.5 x 2.3 x 3.2 cm, volume 70.3 mL. No focal testicular parenchymal lesions are visualized. Spectral Doppler analysis of the arterial and venous flow is normal in the right testis. Right epididymal head is normal in size. Small right hydrocele. No varicocele. Right epididymal Doppler flow is normal. LEFT: Left testicle measures 4.4 x 2.2 x 2.9 cm, volume 14.7 mL. No focal testicular parenchymal lesions are visualized. Spectral Doppler analysis of the arterial and venous flow is normal in the left testis. Left epididymal head is normal in size. Small left hydrocele. No varicocele. Left epididymal Doppler flow is normal. US/US scrotum doppler IMPRESSION: 1. Small bilateral hydroceles. 2. Otherwise, normal scrotal ultrasound. Electronically signed by: Ulysses Thomas MD 04/03/2025 01:29 PM EDT
--- NOTE | 2025-04-03 12:34 | ED_ITS ---
HPI - Male Genitourinary General Chief complaint: Urogenital-Male Stated complaint: severe groin/ testicular Time Seen by Provider: 04/03/25 14:49 History of Present Illness HPI Narrative: PATIENT IS A 59-YEAR-OLD MALE WITH A HISTORY OF BILATERAL TESTICULAR PAIN. PATIENT HAS PAIN ON URINATION. HAD RECENT SURGERY WITH DR. RAMSAY. HAD A HISTORY OF DIVERTICULITIS HAD A REVERSAL OF COLOSTOMY BAG THAT FAILED on March 17. Patient denies any fever chills. Able to urinate. Has output from the ostomy bag. When he urinates he feels like it hurts especially at the end. No penile discharge noted. Patient is from home. Related Data Previous Rx's ?Medication ?Instructions ?Recorded ibuprofen 800 mg tablet (IBU) 800 mg PO DAILY prn pain #180 tabs 03/26/25 Allergies Allergy/AdvReac Type Severity Reaction Status Date / Time No Known Allergies Allergy Verified 04/03/25 12:31 Review of Systems 2 Review of Systems: Positive testicular pain Pain on urination Yes all other systems are reviewed and are negative PMFSH Past Medical History Attestation statement: The following information was validated with the patient. Medical History Ileostomy in place Perforated diverticulum Alcohol dependence Atypical chest pain Bilateral inguinal hernia Nicotine dependence, cigarettes, uncomplicated History of colon polyps Surgical History Hx of surgical procedure (~03/14/25) Hx of colonoscopy History of exploratory laparotomy (11/15/24) History of cystoscopy History of colonoscopy (02/11/25) Family History Family History Mother No problems noted. Father No problems noted. Social History Social History Household Members: Spouse Household Members Other:: grandchildren Housing: House Are you a primary complex care nurse practitioner to a significant other at home: No Do you presently have visiting nurse or other home services: No Alcohol intake: current Alcohol intake frequency: 3 or more drinks per day Alcohol type: beer Comment: COUNTS CORRECT Patient Tobacco Use Status: Current everyday Tobacco user Tobacco use type: Cigarette Cigarette Packs Per Day: 1 Cigarettes Per Day: 20.0 Years Smoked: (onset 13yo, 1ppd x 44yrs, 40pyh) e-Cigarette/Vaping Use: Currently Using Second Hand Smoke Exposure: No Substance Use Type: Marijuana Advance Directives: No Advance Directives Information Provided: Yes service: No Current occupational status: employed Cognitive needs: No Hearing needs: No Vision needs: Yes (reading glasses) Physical Exam 2 Exam: Exam: Appearance: Alert. Oriented X3. No acute distress. Eyes: Pupils equal, round and reactive to light. ENT: Pharynx normal. Neck: Normal inspection. Neck supple. No lymph nodes noted. No crepitus CVS: Normal heart rate and rhythm. Pulses normal. Normal S1 and S2 Respiratory: No respiratory distress. Breath sounds normal. No Wheezing. No rales Abdomen: Soft and nontender. No rigidity. No distention. good BS x4 Genital exam there is no penile discharge noted. There is no testicular tenderness noted. Skin: Skin warm and dry. Normal skin color. Normal skin turgor. Extremities: No lower extremity edema. Neurovascular intact to all extremities. No Lacerations. No Rash Neuro: Oriented X 3. No motor deficit. No sensory deficit. Moving all extermities. No slurred speech Vital Signs: Vital Signs: Last Vital Signs Temp 98.3 F 04/03/25 20:12 Pulse 83 04/03/25 20:12 Resp 18 04/03/25 20:12 BP 120/76 04/03/25 20:12 Pulse Ox 98 04/03/25 20:12 O2 Del Method Room Air 04/03/25 20:12 BMI result Body Mass Index 20.0 Course Course Course Narrative: RME: 59 yold male with a past medical history of failed reverse colostomy bag and diverticulitis presents to ED for bilateral testicular pain and painful urination. Patient denies any recent trauma. Patient denies any fever chills or flank pain. Labs ultrasound ordered Medications Administered Discontinued Medications Generic Name Dose Route Start Last Admin Trade Name Freq PRN Reason Stop Dose Admin Sodium Chloride 1,000 mls @ 999 mls/hr 04/03/25 20:30 04/03/25 20:30 Ns IV 04/03/25 21:30 999 mls/hr .Q1H1M WALT Administration Ketorolac Tromethamine 15 mg 04/03/25 20:25 04/03/25 20:52 Ketorolac Tromethamine 15 Mg/Ml Vial IVPUSH 04/03/25 20:26 15 mg ONCE ONE Administration Ondansetron HCl 4 mg 04/03/25 20:26 04/03/25 20:52 Ondansetron Hcl 4 Mg/2 Ml Vial IVPUSH 04/03/25 20:27 4 mg ONCE ONE Administration Medical Decision Making Medical Decision Making [facility] Narrative: Patient's CT scan showed no acute obstruction. No abscess nonspecific enteritis. No leakage. Patient well-appearing. No distress. Urine has positive blood but has a history of the same. CT scan showed no kidney stone. Ultrasound of the scrotum showed hydrocele. Will have patient follow-up on an outpatient basis. GC chlamydia was also sent. Currently in stable condition will discharge home. Differential Diagnosis Differential Diagnoses: The differential diagnosis associated with the presentation includes Torsion, gonorrhea chlamydia, obstruction, perforation, kidney stone Admission/Observation Consideration of admission/observation: Escalation of care including admission/observation considered Lab Data [facility] Lab Attestation statement: I reviewed the patient's lab results. 04/03/25 12:43 04/03/25 12:43 Labs: Lab Results 04/03/25 04/03/25 Range/Units 12:43 14:16 WBC 12.0 H (4.8-10.8) X10*3/uL RBC 5.10 (4.60-5.80) X10*6/uL Hgb 16.4 (14.0-18.0) g/dl Hct 45.1 (42.0-52.0) % MCV 88.4 (80.0-98.0) fL MCH 32.2 (27.0-33.0) pg MCHC 36.4 H (31.0-36.0) g/dl RDW 12.5 (11.0-16.0) % Plt Count 295 (160-400) X10*3/uL MPV 9.1 L (9.4-12.4) fL Immature Gran % (Auto) 0.3 (0.0-0.4) % Neut % (Auto) 68.1 (45-73) % Lymph % (Auto) 17.4 L (20-40) % [place] % (Auto) 7.3 (2-11) % Eos % (Auto) 5.8 H (0-4) % Baso % (Auto) 1.1 (0-2) % Lymph # (Auto) 2.1 (1.2-4.9) X10*3/uL [place] # (Auto) 0.9 (0.1-1.2) X10*3/uL Eos # (Auto) 0.7 H (0.0-0.4) X10*3/uL Baso # (Auto) 0.1 (0.0-0.2) X10*3/uL Abs Immat Gran (auto) 0.04 H (0.00-0.03) X10*3/uL Absolute Neuts (auto) 8.2 (2.0-8.3) x10*3/uL Absolute Nucleated RBC 0.000 (0.0-0.012) X10*3/uL Nucleated RBC % (auto) 0.0 (0.0-0.2) /100WBC Sodium 138 (135-145) mmol/L Potassium 4.2 (3.3-5.1) mmol/L Chloride 107 (96-108) mmol/L Carbon Dioxide 25 (22-29) mmol/L Anion Gap 10 L (12-20) BUN 18 H (9-16) mg/dL Creatinine 0.78 (0.5-1.4) mg/dL Estim Creat Clear Calc 84.6 Estimated GFR > 60 Random Glucose 88 (60-115) mg/dL Calcium 9.6 D (8.4-10.2) mg/dL Total Bilirubin 1.0 (0.0-1.0) mg/dL AST 22 (5-37) U/L ALT 29 (0-40) U/L Alkaline Phosphatase 61 (39-117) U/L Total Protein 7.4 (6.5-8.0) g/dL Albumin 4.3 (3.5-5.0) g/dL Urine Color Yellow Urine Appearance Clear Urine pH 5.5 (5.0-9.0) Ur Specific [place] 1.020 (1.005-1.025) Urine Protein Trace (Neg-Trace) mg/dL Urine Glucose (UA) Negative (Negative) mg/dL Urine Ketones Trace (Negative) mg/dL Urine Blood Moderate (2+) H (Negative) Urine Nitrite Negative (Negative) Ur Leukocyte Esterase Negative (Negative) Urine RBC 6-10 H (0-2) /HPF Urine WBC 0-5 (0-5) /HPF Ur Squamous Epith Cells 0-2 (0-2) /HPF Urine Bacteria None Seen (None Seen) Hyaline Casts 0-2 (0-2) /LPF Independent Interpretation I performed an independent interpretation of an: CT Scan (No obstruction) Radiology Impression Discussion of test interpretation with radiology: I have reviewed the radiologist's reading. External Record Review External record reviewed: Inpatient record Chronic Conditions History of diverticulitis Social Determinants Patient?s care significantly limited by Social Determinants of Health including: Problems related to primary support group Discharge Plan Discharge Clinical Impression: Hydrocele, Enteritis Patient Disposition: Home, Self-Care Instructions: Enteritis (ED), Testicle Pain (ED) Prescriptions: No Action ibuprofen [IBU] 800 mg tablet 800 mg PO DAILY Qty: 180 1RF Rx Instructions: with food Referrals: Emily Rodríguez MD [Physician, Urology] - 04/07/25 Print Language: Bulgarian
[2025-04-03 12:50] LABS: MANUAL DIFF FLAG NO
[2025-04-03 12:59] LABS: Hematocrit 45.1 % (42.0-52.0); Hemoglobin 16.4 g/dl (14.0-18.0); Imm Gran Abs Auto 0.04 X10*3/uL (0.00-0.03); Imm Gran Pct Auto 0.3 % (0.0-0.4); Lymphocytes Absolute Auto 2.1 X10*3/uL (1.2-4.9); Mean Corpuscular HGB Conc 36.4 g/dl (31.0-36.0); Mean Corpuscular Hemoglobin 32.2 pg (27.0-33.0); Mean Corpuscular Volume 88.4 fL (80.0-98.0); NRBC Abs Auto 0.000 X10*3/uL (0.0-0.012); NRBC Pct Auto 0.0 /100WBC (0.0-0.2); Platelet Count 295 X10*3/uL (160-400); Red Blood Count 5.10 X10*6/uL (4.60-5.80); White Blood Count 12.0 X10*3/uL (4.8-10.8)
[2025-04-03 13:07] LABS: Alanine Aminotransferase 29 U/L (0-40); Albumin Level 4.3 g/dL (3.5-5.0); Alkaline Phosphatase 61 U/L (39-117); Anion Gap 10 (12-20); Aspartate Amino Transferase 22 U/L (5-37); Blood Urea Nitrogen 18 mg/dL (9-16); Calcium 9.6 mg/dL (8.4-10.2); Carbon Dioxide 25 mmol/L (22-29); Chloride 107 mmol/L (96-108); Creatinine Clr Calc Pharmacy 84.6; Estimated Glomerular Filt Rate > 60; Potassium 4.2 mmol/L (3.3-5.1); Sodium 138 mmol/L (135-145); Total Protein 7.4 g/dL (6.5-8.0)
[2025-04-03 14:25] LABS: Appearance Urine Clear; Glucose Urine UA Negative (Negative); PH 5.5 (5.0-9.0); Specific Gravity - Urine 1.020 (1.005-1.025); UMIC TRIGGER UACC YES
--- OUTSIDE RECORDS SUMMARY | 2025-04-03 16:19 | XMS_ITS | Patient Health Record ---
Author Organization [facility] Address [address] [place] [address] Care Team Providers Care Dials Supervisor Name Role Phone Aries (RETIRED) Rodger PARK Primary Care Provide r Manolo Bonds Angel Unavailable [phone] Reason For Referral No Information Medications Medication SIG (Take, Route, Fr equency, Duration) Notes Start Date End Date Status Ibuprofen 800 MG 1-2 tablet Orally QD Active Problems Problem Type SNOMED Code ICD Code Onset Dates Problem Status W/U Status Risk Notes Problem [id number] Encounter for screening for malignant neoplasm of colon (Z12.11) Active confirmed Problem Screening for malignant neoplasm of rectum (194767323) Encounter for screening for malignant neoplasm of rectum (Z12.12) Active confirmed Problem [id number] Preprocedural examination (Z01.818) Active confirmed Plan Of Treatment Future Test Test Name Order Date COLONOSCOPY 06/17/2016 Insurance Providers Payer Name Payer Address Payer Phone Subscriber Number Group Number Insured Name Patient Relationship to Insured Coverage Start Date Coverage End Date [facility] [address] [place] [phone] [id number] LINNEA FELIX Self - patient is the insured Medical (General) History Medical History History ICD Code Denies [place],DM,CVA,renal disease Back and neck pain. Early COPD Surgical History Surgery Date(Month/Year) shoulder surgery-rotator cuff--left 2012
--- OUTSIDE RECORDS SUMMARY | 2025-04-03 16:19 | XMS_ITS | Clinical Summary ---
Author Organization [facility] Address [address] [address] Phone Care Team Providers Care Boat And Plant Utility Supervisor Name Role Phone Unknown, Unknown Primary Care [...] Devices Not on file Insurance [place] [address] [address] [place] [address] [place] [address] [place] [address] HMO POS HMO [place] [address] [place] [address] HMO POS Care Teams Boat And Plant Utility Supervisor Relationship Specialty Start Date End Date Unknown, Unknown, PCP - General 08/03/20 Additional Source Comments The information contained in this document represents components of the legal health record. It is not the complete legal health record.[facility]
== END 2025-04-03 23:20 | disposition home or self-care (01) ==
PROVIDERS: Physician Assistant; Emergency Provider Emergency Medicine Emergency Medical Services; PCP Internal Medicine
DX: N43.3 Hydrocele, unspecified (principal); K52.9 Noninfective gastroenteritis and colitis, unspecified; Z72.0 Tobacco use; Z79.899 Other long term (current) drug therapy; Z93.3 Colostomy status; Z86.0100 Personal history of colon polyps, unspecified
CPT/HCPCS: 36415; 74176; 76870; 80053; 81001; 85025; 93975; 96374; 96375; 99284; 99285; J1885; J2405

== ENCOUNTER → 2025-04-03 12:32 | Outpatient (BNV) | payer BC, SELFPAY | PROVIDERS: PCP Internal Medicine; Visit Provider Radiology Diagnostic Radiology | DX: K63.89 Other specified diseases of intestine (principal); N43.3 Hydrocele, unspecified | CPT/HCPCS: 74176; 76870; 93975 ==

== ENCOUNTER 2025-04-16 11:17 | Outpatient (REF) | payer BC, SELFPAY ==
--- NOTE | ~2025-04-16 | FL_ITS ---
EXAMINATION: XR BARIUM ENEMA CLINICAL INFORMATION: Ileostomy for reversal. Previous COMPARISON: None available. TECHNIQUE: Retrograde single contrast barium enema was performed with balloon inflated Allen's catheter in place. FINDINGS: Preliminary KUB revealed nonspecific bowel gas pattern. Following retrograde administration of thin barium there is mild ballooning of the rectum. The rectosigmoid anastomosis is mildly narrowed but widely patent. No anastomotic leak seen. There is diffuse colonic diverticulosis most prominent in the descending and sigmoid region. Post evacuation images reveal moderate retained thin barium was throughout the colon without significant diverticulosis. No extravasation seen at the rectosigmoid anastomosis. FLUOROSCOPY TIME: 1 minute 26 seconds DOSE AREA PRODUCT: [id number] uGy-m2 (microgray-meter squared) FL/FL barium enema IMPRESSION: Mildly narrowed recto-sigmoid anastomosis but patent. No extravasation of barium seen at the anastomosis. Extensive colonic diverticulosis most prominent in the descending and sigmoid colon. Electronically signed by: Simba Lopez MD 04/16/2025 02:53 PM EDT
--- OUTSIDE RECORDS SUMMARY | 2025-04-16 13:59 | XMS_ITS | Patient Health Record ---
Author Organization [facility] Address [address] [place] [address] Care Team Providers Care Credit Specialist Name Role Phone Aries (RETIRED) Rodger PARK Primary Care Provide r Angel Singh Unavailable [phone] Reason For Referral No Information Medications Medication SIG (Take, Route, Fr equency, Duration) Notes Start Date End Date Status Ibuprofen 800 MG 1-2 tablet Orally QD Active Problems Problem Type SNOMED Code ICD Code Onset Dates Problem Status W/U Status Risk Notes Problem Screening for malignant neoplasm of colon ([id number]) Encounter for screening for malignant neoplasm of colon (Z12.11) Active confirmed Problem Screening for malignant neoplasm of rectum (713573592) Encounter for screening for malignant neoplasm of rectum (Z12.12) Active confirmed Problem Preprocedural examination (321613282143988) Preprocedural examination (Z01.818) Active confirmed Plan Of Treatment Future Test Test Name Order Date COLONOSCOPY 06/17/2016 Insurance Providers Payer Name Payer Address Payer Phone Subscriber Number Group Number Insured Name Patient Relationship to Insured Coverage Start Date Coverage End Date [facility] [address] [place] [phone] [id number] LINNEA FELIX Self - patient is the insured Medical (General) History Medical History History ICD Code Denies [place],DM,CVA,renal disease Back and neck pain. Early COPD Surgical History Surgery Date(Month/Year) shoulder surgery-rotator cuff--left 2012
== END 2025-04-16 11:18 | disposition home or self-care (01) ==
LOC: HO.XRAY 11:17
PROVIDERS: PCP Internal Medicine; Visit Provider Surgery
DX: Z93.2 Ileostomy status (principal)
CPT/HCPCS: 74270

== ENCOUNTER → 2025-04-16 11:19 | Outpatient (BNV) | payer BC, SELFPAY | PROVIDERS: PCP Internal Medicine; Visit Provider Radiology Diagnostic Radiology | DX: K57.30 Diverticulosis of large intestine without perforation or abscess without bleeding (principal); Z93.2 Ileostomy status | CPT/HCPCS: 74270 ==

== ENCOUNTER 2025-05-14 10:49 | Outpatient (AMB) | payer BC, SELFPAY ==
--- NOTE | 2025-05-14 10:52 | MHC.OFFVIS ---
Vital Signs 05/14/25 10:56 Height 5 ft 7 in Weight 139 lb 4 oz BMI 21.8 Intake Visit Reasons: s/p GODINEZ lap reversal of colostomy Intake Note: Patient presents for a follow-up assessment status post Hand assisted lap reversal of colostomy. Pt c/o: reports no complaints at this time. 03/14/2025: Osorio Procedure Tracer Lathe Set Up Operator Required: No Accompanied by: Self / Same As Patient Allergies No Known Allergies Allergy (Verified 05/14/25 10:57) HPI HPI s/p GODINEZ lap reversal of colostomy: Details: 59-year-old male here a follow up a diverting loop ileostomy. He had undergone emergency sigmoid resection and end colostomy for perforated diverticulitis last 11/15/2024. He then had reversal of his colostomy last March,. I had to do a diverting loop ileostomy because of a leak from his anastomosis requiring repair with sutures I had done a barium enema test last month and this shows that the anastomosis patent without any suggestion of any leak. He is here therefore to scheduled for his reversal of the loop ileostomy. He says that he has had no problems with the ileostomy currently. He feels well overall and says he is ready for the reversal. [facility] Medical History Ileostomy in place Perforated diverticulum Alcohol dependence Atypical chest pain Bilateral inguinal hernia Nicotine dependence, cigarettes, uncomplicated History of colon polyps Surgical History Hx of surgical procedure (~03/14/25) Hx of colonoscopy History of exploratory laparotomy (11/15/24) History of cystoscopy History of colonoscopy (02/11/25) Family History Mother No problems noted. Father No problems noted. Social History Household Members: Spouse Household Members Other:: grandchildren Housing: House Are you a primary morning caregiver to a significant other at home: No Do you presently have visiting nurse or other home services: No Alcohol intake: current Alcohol intake frequency: 3 or more drinks per day Alcohol type: beer Comment: COUNTS CORRECT Patient Tobacco Use Status: Current everyday Tobacco user Tobacco use type: Cigarette Cigarette Packs Per Day: 1 Cigarettes Per Day: 20.0 Years Smoked: (onset 13yo, 1ppd x 43yrs, 40pyh) e-Cigarette/Vaping Use: Currently Using Second Hand Smoke Exposure: No Substance Use Type: Marijuana service: No Current occupational status: employed Cognitive needs: No Hearing needs: No Vision needs: Yes (reading glasses) Review of Systems Const Denies chills and Denies fever(s) Card Denies chest pain, Denies dyspnea and Denies dyspnea on exertion Resp Denies cough, Denies dyspnea and Denies dyspnea on exertion GI Details: Loop ileostomy in place on the right Denies hematochezia and Denies change in bowel habits Denies hematuria and Denies difficulty urinating Musc Denies back pain and Denies limited range of motion Neuro Denies focal weakness and Denies convulsions Psych Denies depression and Denies mood swings Physical Exam Const General: comfortable and no acute distress Orientation/consciousness: patient oriented x3 Neck Neck: Yes no lymphadenopathy Resp Auscultation: clear to auscultation bilaterally Cardio Rhythm: regular rhythm GI Other: Loop ileostomy in place on the right side Palpation (GI): Soft to palpation, nontender and no guarding Neuro General: patient oriented x3 Assessment & Plan Assessment & Plan (1) Ileostomy in place: Code(s): Z93.2 - Ileostomy status Category: Medical Plan: His barium enema test says that the rectosigmoid anastomosis was patent and did not have any leak. He does have significant diverticular disease in the remaining colon I reviewed with him the technique of reversal of the loop ileostomy with possible laparotomy. I explained the risks including but not limited to bleeding, infections, bowel injury, anastomotic leak, hernias, inherent risks of anesthesia, as well as the benefits and alternatives I also reviewed with him what to expect postoperatively He says he understands and wants to proceed. I have reviewed his imaging studies with the radiologist. Coding Level of Care Code Est Pt Level 3 (81360) Diagnoses Ileostomy in place Z93.2
[2025-05-14 10:56] VITALS: BMI 21.8
--- OUTSIDE RECORDS SUMMARY | 2025-05-14 13:08 | XMS_ITS | Patient Health Record ---
Author Organization [facility] Address [address] [place] [address] Care Team Providers Care Early Childhood Assistant Name Role Phone Aries (RETIRED) Rodger PARK Primary Care Provide r Angel Singh Unavailable [phone] Reason For Referral No Information Medications Medication SIG (Take, Route, Fr equency, Duration) Notes Start Date End Date Status Ibuprofen 800 MG 1-2 tablet Orally QD Active Problems Problem Type SNOMED Code ICD Code Onset Dates Problem Status W/U Status Risk Notes Problem Screening for malignant neoplasm of colon (680653545) Encounter for screening for malignant neoplasm of colon (Z12.11) Active confirmed Problem Screening for malignant neoplasm of rectum (613605143) Encounter for screening for malignant neoplasm of rectum (Z12.12) Active confirmed Problem Preprocedural examination ([id number]) Preprocedural examination (Z01.818) Active confirmed Plan Of Treatment Future Test Test Name Order Date COLONOSCOPY 06/17/2016 Insurance Providers Payer Name Payer Address Payer Phone Subscriber Number Group Number Insured Name Patient Relationship to Insured Coverage Start Date Coverage End Date [facility] [address] [place] [phone] [id number] LINNEA FELIX Self - patient is the insured Medical (General) History Medical History History ICD Code Denies [place],DM,CVA,renal disease Back and neck pain. Early COPD Surgical History Surgery Date(Month/Year) shoulder surgery-rotator cuff--left 2012
== END 2025-05-14 11:11 | disposition home or self-care (01) ==
LOC: HO.HGS 10:50
PROVIDERS: PCP Internal Medicine; Visit Provider Surgery
DX: Z93.2 Ileostomy status (principal)
CPT/HCPCS: 99024

== ENCOUNTER 2025-06-10 09:58 | Inpatient (IN) | payer BC, SELFPAY ==
[2025-05-23 09:36] VITALS: BMI 21.8
--- NOTE | 2025-05-23 14:20 | P.CONAN_ITS ---
HPI - Anesthesia Eval Consult details Narrative: 60 yr old male for Reversal of Loop Ileostomy,possible Laparotomy, scheduled 06/10/25; had phone PAT assessment by RN s/p hand assisted colostomy reversal lap with intraop sigmoidoscopy and diverting loop ileostomy 03/14/25 with GA ETT 7.5 +marijuana use: was advised by PAT RN to not use for at least 3 days prior. +Tobacco use: 1 pk per day, advised to cut back, ETOH use: was advised to reduce intake prior to his 03/2025 procedure. PMFSH Active Problems Active Problems: All Active Problems Elevated glucose (Acute) Screening for prostate cancer (Acute) Hospital discharge follow-up (Acute) Status post Osorio procedure (Acute) Hematuria (Acute) Bilateral inguinal hernia (Acute) Ileostomy in place (Acute) Nicotine dependence, cigarettes, uncomplicated (Acute) Past Medical History Medical History Ileostomy in place Perforated diverticulum Alcohol dependence Atypical chest pain Bilateral inguinal hernia Nicotine dependence, cigarettes, uncomplicated History of colon polyps Family History Family History Mother No problems noted. Father No problems noted. Family history of problems with anesthesia: No Surgical History Surgical History History of colostomy reversal Hx of surgical procedure (~06/10/25) Hx of surgical procedure (~03/14/25) Hx of colonoscopy History of exploratory laparotomy (11/15/24) History of cystoscopy History of colonoscopy (02/11/25) History of Problems with Anesthesia: No Social History Social History Household Members: Family Household Members Other:: grandchildren Housing: House Are you a primary inspector health care facilities to a significant other at home: No Do you presently have visiting nurse or other home services: No Alcohol intake: current Alcohol intake frequency: other Alcohol type: beer Comment: COUNTS CORRECT; 6-10 beers per day Patient Tobacco Use Status: Current everyday Tobacco user Tobacco use type: Cigarette Cigarette Packs Per Day: 1 Cigarettes Per Day: 20.0 Years Smoked: (onset 13yo, 1ppd x 43yrs, 40pyh) e-Cigarette/Vaping Use: Never Used Second Hand Smoke Exposure: Yes Substance Use Type: Marijuana service: No Current occupational status: employed Cognitive needs: No Hearing needs: No Vision needs: Yes (reading glasses) Meds Allergies Allergy/AdvReac Type Severity Reaction Status Date / Time No Known Allergies Allergy Verified 06/24/25 13:21 Exam Height,Weight and Vital Signs: Height 5 ft 7 in Weight 63.163 kg Pertinent Lab Results Pertinent Lab Results: Laboratory Tests 04/03/25 12:43 WBC 12.0 H RBC 5.10 Hgb 16.4 Hct 45.1 Plt Count 295 Sodium 138 Potassium 4.2 Chloride 107 Carbon Dioxide 25 BUN 18 H Creatinine 0.78 Narrative Narrative: EKG 10/2024 Vent. Rate : 076 BPM Atrial Rate : 076 BPM P-R Int : 216 ms QRS Dur : 092 ms QT Int : 344 ms P-R-T Axes : 060 -12 045 degrees QTc Int : 387 ms Sinus rhythm with 1st degree A-V block Incomplete right bundle branch block Cannot rule out Inferior infarct (cited on or before 14-JUL-2020) Possible Anterior infarct (cited on or before 14-JUL-2020) Abnormal ECG When compared with ECG of 14-JUL-2020 19:45, No significant change was found Assessment and Plan Final Anesthetic Review Family History of Problems with Anesthesia: No History of Problems with Anesthesia: No
[2025-06-10] VITALS (9 sets, daily range): BP systolic 109–168; BP diastolic 65–96; PULSE 67–86; RESP 12–18; TEMP 36–37.1; O2SAT 95–100; BMI 20.9; BMI 21.4
[2025-06-10] MEDS: Lactated Ringers 1,000 ML 100 ML IVCONT ×3 (10:08→23:53)
--- NOTE | 2025-06-10 10:43 | MHC.SHP ---
Pre-Procedural Eval Section A - 24 Hr Update-Section A only Date of Service: 06/10/25 The patient is an INPATIENT: No Changes since office visit: No Cold of Flu in the past 2 weeks, No New Medical Problems, No Changes in Medication and No Patient answered all questions The patient has been examined within 24 hours of the surgical procedure. The History & Physical has been completed within 30 days and I have reviewed it.: Yes Section B - Complete if H&P > 30 days Chief Complaint: closure of ileostomy Allergies: Allergies Allergy/AdvReac Type Severity Reaction Status Date / Time No Known Allergies Allergy Verified 06/10/25 09:37 Plan I have reviewed the history and physical and performed a pertinent physical examination on my patient. No changes have occurred unless specified. Time Spent With Patient Time: Total time managing care of this patient today ____ minutes.
--- NOTE | 2025-06-10 12:16 | PHA.MEDREC ---
Pharmacy Consult ? Medication Reconciliation Pharmacy has reviewed the medication reconciliation completed by nursing.
--- NOTE | 2025-06-10 12:41 | P.OP_ITS ---
Operative Note Operative Note Date of Service: 06/10/25 Narrative: Preop diagnosis: Loop ileostomy in place, after sigmoid resection and anastomosis for perforated diverticulitis Postop diagnosis: The same Procedure: Reversal loop ileostomy, this has adhesions Surgeon: Rodger Gilliam, title i instructional assistant: NAYAN Sunshine The patient is a 60-year-old male with a loop ileostomy after reversal of colostomy for perforated diverticulitis, here for reversal of ileostomy. He und erstood the technique of the planned procedure and he was aware risks, benefits, alternatives He was brought to the operating. He was placed supine under general anesthesia via endotracheal tube. I proceeded to close both efferent and afferent limbs of the loop ileostomy with a running Polysorb 3-0 stitch. The abdomen was prepped and draped in the usual sterile fashion. A surgical time-out was done. The patient received cefazolin 2 g IV preoperatively I infiltrated the planned line of incision with lidocaine 1%. I made an elliptical incision on the ileostomy site using blade 15. This carried down through the full-thickness of the skin and subcutaneous fat with electrocautery down to the fascia. We proceeded to gently identify the interface between the fascial edge and the bowel loops. After identifying this, I used sharp dissection with Metzenbaum scissors to open up the plane between the bowel loop in the area. I was then able to apply a Trinidad clamp of the fascial edge. By following this, I continued to sharply dissect the efferent and afferent limbs of the loop off of the fascial defect. There was note of some adhesions surrounding the area in view of what appeared to be a parastomal hernia. We carefully lysed this Metzenbaum scissors and electrocautery. We dissected circumferentially around the fascial defect until we are able to completely free up the entire loop We pulled this up into the field. I then proceeded to create a mesenteric window on both the efferent and afferent limbs just below the stoma level. I elected these limbs with a TIBURCIO 60 mm staplers. I completed transection of the stoma by really dividing and ligating the attached mesentery. This was sent as a specimen Once hemostasis on the divided mesentery was confirmed, I proceeded to do the [id number]-[id number] anastomosis. I opened up the apex of each staple line on the efferent and afferent limbs with curved Perry scissors. I entered the lumen. I positioned each arm of the TIBURCIO 60 mm stapler the anti mesenteric side of each limb. I made sure that there were no bowel loops caught between the brandy. The stapler was fired to create our [id number]-rb-[id number] anastomosis. The anastomosis was completed by closing the enterotomy with a TA 60 mm stapler The anastomosis felt patent and intact between my index finger and the thumb on palpation. I applied seromuscular sutures on the edge of the staple line to release any tension using Polysorb 3-0 sutures Examination of the staple line showed this to be vascularized and intact. The mesentery also appeared to have adequate hemostasis I then proceeded to reduce this entire loop the fascial defect in the back into the peritoneal cavity. Once this was achieved, I proceeded to then close the fascia with a Maxon 1 stitch. I copiously irrigated the subcutaneous layer. We had changed gloves at this point A skin incision was closed loosely with brandy. The area was infiltrated generously with Marcaine 0.5% for postop analgesia. Iodoform packing was placed in between the skin brandy into the subcutaneous layer Dressings were applied. The procedure was completed The patient tolerated the procedure well. There were no immediate complications. Initial and final counts of sponges and instruments were correct. Estimated blood loss was about 25 cc The patien was extubated without difficulty and transferred to the recovery room with stable vital signs.
[2025-06-10] MEDS: Nicotine 21 MG PATCH.TD24 TRANSDERMA (13:53)
--- NOTE | 2025-06-10 14:39 | PM.EVENT ---
Event Note Date of Service: 06/10/25 Event Note: Seen postop Status post reversal of loop ileostomy Appears to have adequate pain control Abdomen is soft Stable vital signs Pain management Okay to have clear liquids Await return of GI functions Wound care Ollie updated Time Spent With Patient Time: Total time managing care of this patient today ____ minutes.
--- NOTE | 2025-06-10 15:16 | P.CONHOSP_ITS ---
History of Present Illness Data of Consult Service Date: 06/10/25 Primary Care Provider: Huan Arias MD HPI Reason for consult: ETOH abuse 60-year-old male, with a background history of ETOH use, nicotine dependence, diverticulitis c/b perforation s/p Osorio procedure 11/24 s/p colostomy reversal & placement of diverting loop ileostomy 03/27, presenting today for loop ileostomy reversal - successfully performed. Hospital service was consulted for ETOH use ?CIWA On discussion with the patient, he reports drinking 6-8 beers on a daily basis. He has had periods where he has self-discontinued alcohol entirely, without having withdrawal. Currently, the patient reports feeling well, without agitation, tremulousness, palpitations, dizziness, visual or auditory hallucinations, headache. Tolerating procedure well. Vital signs 145/88, pulse of 67 beats per minute SpO2 97% on room air. The patient also endorses episodes of pain when urinating, with abdominal fullness, straining to urinate. This was investigated on ED presentation 1 month ago. Plan was to follow up with Urology; currently has an appointment on 26 of June. Patient denies pyuria, hematuria. Review of Systems 2 Review of Systems: Yes all other systems are reviewed and are negative PMFSH Medical History Ileostomy in place Perforated diverticulum Alcohol dependence Atypical chest pain Bilateral inguinal hernia Nicotine dependence, cigarettes, uncomplicated History of colon polyps Family History Mother No problems noted. Father No problems noted. Surgical History Hx of surgical procedure (~03/14/25) Hx of colonoscopy History of exploratory laparotomy (11/15/24) History of cystoscopy History of colonoscopy (02/11/25) Social History Household Members: Family Household Members Other:: grandchildren Housing: House Are you a primary child care specialist to a significant other at home: No Do you presently have visiting nurse or other home services: No Alcohol intake: current Alcohol intake frequency: other Alcohol type: beer Comment: COUNTS CORRECT; 8-10 beers per day Patient Tobacco Use Status: Current everyday Tobacco user Tobacco use type: Cigarette Cigarette Packs Per Day: 1 Cigarettes Per Day: 20.0 Years Smoked: (onset 13yo, 1ppd x 44yrs, 40pyh) e-Cigarette/Vaping Use: Currently Using Second Hand Smoke Exposure: No Substance Use Type: Marijuana service: No Current occupational status: employed Cognitive needs: No Hearing needs: No Vision needs: Yes (reading glasses) Meds Allergies Allergy/AdvReac Type Severity Reaction Status Date / Time No Known Allergies Allergy Verified 06/10/25 09:37 Active Medications: Current Medications Calcium Carbonate (Calcium Carbonate 750 Mg Tab.Chew) 750 mg PO Q4H PRN PRN Reason: Heartburn Docusate Sodium (Docusate Sodium 100 Mg Capsule) 100 mg PO BEDTIME WALT Heparin Sodium (Porcine) (Heparin Sodium,Porcine 5,000 Unit/Ml Vial) 5,000 unit SUBCUT Q8H WALT Lactated Ringer's (Lr) 1,000 mls @ 100 mls/hr IVCONT .Q10H [facility] Last Admin: 06/10/25 13:52 Dose: 100 mls/hr Acetaminophen (Ofirmev) 1,000 mg in 100 mls @ 400 mls/hr IV Q6H [facility] Last Infusion: 06/10/25 14:13 Dose: Infused Melatonin (Melatonin 3 Mg Tablet) 6 mg PO BEDTIME PRN PRN Reason: Insomnia Morphine Sulfate (Morphine Sulfate 4 Mg/Ml Cartridge) 4 mg IVPUSH Q4H PRN; Protocol PRN Reason: Pain, Severe (Pain Scale 7-10) Last Admin: 06/10/25 13:55 Dose: 4 mg Nicotine (Nicotine 21 Mg Patch.Td24) 21 mg TRANSDERMA DAILY [facility] Last Admin: 06/10/25 13:53 Dose: 21 mg Oxycodone HCl (Oxycodone Hcl Immed Release 5 Mg Tablet) 5 mg PO Q4H PRN PRN Reason: Pain, Moderate(Pain Scale 4-6) Sodium Chloride (0.9 % Sodium Chloride Flush 3 Ml Syringe) 3 ml IVFLUSH QSHIFT [facility] Last Admin: 06/10/25 13:58 Dose: Not Given Physical Exam 2 Vital Signs and Narrative: Vital Signs: Last Vital Signs Temp 96.8 F 06/10/25 14:03 Pulse 67 06/10/25 14:03 Resp 16 06/10/25 14:03 BP 145/88 H 06/10/25 14:03 Pulse Ox 97 06/10/25 14:03 O2 Del Method Room Air 06/10/25 14:03 O2 Flow Rate 6 06/10/25 13:00 BMI result Body Mass Index 21.4 General: A&O x3, oriented to time place person and situation, comfortable, no pain Cardiac: S1, S2 auscultated with no S3/4, no MRG. Well perfused. Respiratory: Normal breath sounds auscultated throughout all lung zones, without wheezing, rales. Normal rate. GI/ : No abdominal pain on palpation, no masses or distentions. MSK: Normal ambulation without pain at bony prominences or musculature Neurological: Normal neurological examination on overview, without obvious CN II-XII abnormalities. Results Labs 06/10/25 15:39 06/10/25 15:39 Assessment and Plan (1) Elevated glucose: Status: Acute (2) Status post Osorio procedure: Status: Acute (3) Bilateral inguinal hernia: Qualifiers: Obstruction and gangrene presence: without obstruction or gangrene R ecurrence: non-recurrent Qualified Code(s): K40.20 - Bilateral inguinal hernia, without obstruction or gangrene, not specified as recurrent Status: Acute (4) Hematuria: Qualifiers: Hematuria type: unspecified type Qualified Code(s): R31.9 - Hematuria, unspecified Status: Acute (5) Nicotine dependence, cigarettes, uncomplicated: Status: Acute (6) Alcohol dependence: Qualifiers: Substance use status: uncomplicated Qualified Code(s): F10.20 - Alcohol dependence, uncomplicated Status: Acute Plan 60-year-old male, with a background history of ETOH use, nicotine dependence, diverticulitis c/b perforation s/p Osorio procedure 11/24 s/p colostomy reversal & placement of diverting loop ileostomy 03/27, presenting today for loop ileostomy reversal - successfully performed. Diverticulitis c/b perforation - s/p Osorio procedure 11/24 - colostomy reversal and placement of diverting loop ileostomy 03/27 - admission for reversal loop ileostomy 06/10/25 Plan & intervention as per surgical service ETOH dependence Drinks 2 beers a day PLAN - CIWA - comprehensive metabolic panel - CBC - magnesium - thiamine, folic acid Dysuria BPH Describes dysuria, bladder fullness, incomplete emptying, straining to urinate Seems consistent with BPH Denies pyuria, hematuria. Sexually active-. Lower risk of prostatitis, however not excluded PLAN - start tamsulosin 4 mg OD p.o. - monitor urinary output Nicotine dependence PLAN - offer chemical treatment HTN Likely postoperative finding in setting of pain Continue to monitor
[2025-06-10 15:46] LABS: Hematocrit 46.3 % (42.0-52.0); Hemoglobin 15.3 g/dl (14.0-18.0); Imm Gran Abs Auto 0.05 X10*3/uL (0.00-0.03); Imm Gran Pct Auto 0.3 % (0.0-0.4); Lymphocytes Absolute Auto 1.0 X10*3/uL (1.2-4.9); MANUAL DIFF FLAG SCAN; Mean Corpuscular HGB Conc 33.0 g/dl (31.0-36.0); Mean Corpuscular Hemoglobin 31.5 pg (27.0-33.0); Mean Corpuscular Volume 95.3 fL (80.0-98.0); NRBC Abs Auto 0.000 X10*3/uL (0.0-0.012); NRBC Pct Auto 0.0 /100WBC (0.0-0.2); Platelet Count 245 X10*3/uL (160-400); Red Blood Count 4.86 X10*6/uL (4.60-5.80); SCAN SMEAR FLAG 1; White Blood Count 17.1 X10*3/uL (4.8-10.8)
[2025-06-10 16:00] LABS: Alanine Aminotransferase 29 U/L (0-40); Albumin Level 4.0 g/dL (3.5-5.0); Alkaline Phosphatase 52 U/L (39-117); Anion Gap 10 (12-20); Aspartate Amino Transferase 26 U/L (5-37); Blood Urea Nitrogen 18 mg/dL (9-16); Calcium 9.0 mg/dL (8.4-10.2); Carbon Dioxide 22 mmol/L (22-29); Chloride 110 mmol/L (96-108); Creatinine Clr Calc Pharmacy 92.8; Estimated Glomerular Filt Rate > 60; Potassium 4.4 mmol/L (3.3-5.1); Sodium 138 mmol/L (135-145); Total Protein 6.6 g/dL (6.5-8.0)
[2025-06-10] MEDS: oxyCODONE HCl Immed Release 5 MG TABLET PO (16:11)
[2025-06-11] VITALS (7 sets, daily range): BP systolic 122–134; BP diastolic 68–77; PULSE 79–85; RESP 16–19; TEMP 36.2–36.9; O2SAT 93–96
[2025-06-11] MEDS: oxyCODONE HCl Immed Release 5 MG TABLET PO ×2 (03:40→13:25)
[2025-06-11] MEDS: Lactated Ringers 1,000 ML 100 ML IVCONT ×2 (06:01→15:35)
--- NOTE | 2025-06-11 06:45 | P.PNGS_ITS ---
Subjective Subjective Date of Service: 06/11/25 <Mckenna Patterson - Last Filed: 06/11/25 07:23> 06/11/25 <Susana Sunshine PA-C - Last Filed: 06/11/25 07:28> 06/11/25 <Rodger Gilliam MD - Last Filed: 06/11/25 07:52> Interval history: Patient reports improvement in pain from yesterday. Tolerating liquids. Reports nausea immediately after surgery but none now. Voided 1x since surgery. No BM but reports flatus. Not OOB yet, plans to start today. Denies fever, chills, abdominal cramping. <Mckenna Patterson - Last Filed: 06/11/25 07:23> Physical Exam 2 Vital Signs: Vital Signs: Last Vital Signs Temp 97.1 F 06/11/25 04:00 Pulse 85 06/11/25 04:00 Resp 18 06/11/25 04:00 BP 125/68 06/11/25 04:00 Pulse Ox 95 06/11/25 04:00 O2 Del Method Room Air 06/11/25 04:00 O2 Flow Rate 6 06/10/25 13:00 BMI result Body Mass Index 21.4 <Mckenna Patterson - Last Filed: 06/11/25 07:23> Const: General: comfortable and alert; No acute distress <Mckenna Patterson - Last Filed: 06/11/25 07:23> Orientation/consciousness: patient oriented x3 <Mckenna Patterson - Last Filed: 06/11/25 07:23> Resp: Effort & Inspection: normal respiratory effort and able to speak in complete sentences <Mckenna Patterson - Last Filed: 06/11/25 07:23> GI: Other: Inspection: dressings clean dry and intact Percussion: normal to percussion Palpation: soft, non-distended, tenderness around incision site <Mckenna Patterson - Last Filed: 06/11/25 07:23> Other: Inspection: dressings clean dry and intact Palpation: soft, slightly distended and tympanitic, tenderness around incision site, mild incision clean appearing with some sanguineous drainage, wound uyen intact <Susana Sunshine PA-C - Last Filed: 06/11/25 07:28> Skin: General skin exam: no rashes or lesions noted <Susana Sunshine PA-C - Last Filed: 06/11/25 07:28> Neuro: General: patient oriented x3 <Mckenna Patterson - Last Filed: 06/11/25 07:23> Objective Data Active Medications Calcium Carbonate (Calcium Carbonate 750 Mg Tab.Chew) 750 mg PO Q4H PRN PRN Reason: Heartburn Docusate Sodium (Docusate Sodium 100 Mg Capsule) 100 mg PO BEDTIME [facility] Heparin Sodium (Porcine) (Heparin Sodium,Porcine 5,000 Unit/Ml Vial) 5,000 unit SUBCUT Q8H [place] Lactated Ringer's (Lr) 1,000 mls @ 100 mls/hr IVCONT .Q10H [facility] Last Admin: 06/11/25 06:01 Dose: 100 mls/hr Documented By: LILA Acetaminophen (Ofirmev) 1,000 mg in 100 mls @ 400 mls/hr IV Q6H [facility] Last Infusion: 06/11/25 02:27 Dose: Infused Documented By: LILA Melatonin (Melatonin 3 Mg Tablet) 6 mg PO BEDTIME PRN PRN Reason: Insomnia Last Admin: 06/10/25 23:58 Dose: 6 mg Documented By: LILA Morphine Sulfate (Morphine Sulfate 4 Mg/Ml Cartridge) 4 mg IVPUSH Q4H PRN; Protocol PRN Reason: Pain, Severe (Pain Scale 7-10) Last Admin: 06/11/25 02:25 Dose: 4 mg Documented By: LILA Nicotine (Nicotine 21 Mg Patch.Td24) 21 mg TRANSDERMA DAILY [facility] Last Admin: 06/10/25 13:53 Dose: 21 mg Documented By: RYAN Oxycodone HCl (Oxycodone Hcl Immed Release 5 Mg Tablet) 5 mg PO Q4H PRN PRN Reason: Pain, Moderate(Pain Scale 4-6) Last Admin: 06/11/25 03:40 Dose: 5 mg Documented By: LILA Sodium Chloride (0.9 % Sodium Chloride Flush 3 Ml Syringe) 3 ml IVFLUSH QSHIFT [facility] Last Admin: 06/10/25 23:57 Dose: Not Given Documented By: [email or web address] Non-Admin Reason: IV Running <Mckenna Patterson - Last Filed: 06/11/25 07:23> Labs CBC & Chem 7: 06/10/25 15:39 06/10/25 15:39 <Mckenna Patterson - Last Filed: 06/11/25 07:23> Labs: Laboratory Results - last 24 hr 06/10/25 15:39 MCV 95.3 MCH 31.5 MCHC 33.0 RDW 14.1 Plt Count 245 MPV 9.1 L Immature Gran % (Auto) 0.3 Neut % (Auto) 90.5 H Lymph % (Auto) 5.7 L [place] % (Auto) 2.0 Eos % (Auto) 0.9 Baso % (Auto) 0.6 Lymph # (Auto) 1.0 L [place] # (Auto) 0.3 Eos # (Auto) 0.2 Baso # (Auto) 0.1 Abs Immat Gran (auto) 0.05 H Absolute Neuts (auto) 15.5 H Absolute Nucleated RBC 0.000 Nucleated RBC % (auto) 0.0 Smear Tech's Comments VERIFIED Anion Gap 10 L Estim Creat Clear Calc 92.8 Estimated GFR > 60 Random Glucose 93 Calcium 9.0 D Total Bilirubin 0.9 AST 26 ALT 29 Alkaline Phosphatase 52 Total Protein 6.6 Albumin 4.0 <Mckenna Patterson - Last Filed: 06/11/25 07:23> Procedures Date of Service Date of Service: 06/11/25 <Mckenna Patterson - Last Filed: 06/11/25 07:23> 06/11/25 <Susana Sunshine PA-C - Last Filed: 06/11/25 07:28> 06/11/25 <Rodger Gilliam MD - Last Filed: 06/11/25 07:52> Progress Note: A&P Assessment and plan (1) Status post reversal of ileostomy: Status: Acute <Mckenna Patterson - Last Filed: 06/11/25 07:23> Assessment and Plan: Says he is ?okay? Says he has adequate pain control Able to void Tolerating clear liquids well Says he has passed flatus Abdomen is soft Dressings dry Ambulate down the hallway Incentive spirometry Pain management Await for more consistent flatus Seen and examined independently <Rodger Gilliam MD - Last Filed: 06/11/25 07:52> Assessment and Plan: Rene Márquez is a 60 y/o male now on POD1 s/p ileostomy reversal after Osorio procedure for perforated diverticulitis followed by colostomy reversal and loop ileostomy. Patient is doing well overall. Expected post-surgical pain, adequately managed on current regimen. Nausea improved, no vomitting. Tolerating clear liquids. No BM but endorses flatus. Dressings clean, dry and intact. Expected post-surgical tenderness, otherwise benign abd exam. Continue pain medications and IV fluids. Encourage OOB and continued incentive spirometry. < Mckenna Patterson - Last Filed: 06/11/25 07:23> Rene Márquez is a 60 y/o male now on POD1 s/p ileostomy reversal for hx of perforated diverticulitis followed by colostomy reversal with diverting loop ileostomy. Patient is doing well overall. Expected post-surgical pain, adequately managed on current regimen. Nausea improved, no vomitting. Tolerating clear liquids. No BM but endorses flatus. Dressings clean, dry and intact. Expected post-surgical tenderness, otherwise benign abd exam. Continue pain medications and IV fluids. Encourage OOB and continued incentive spirometry. Agree with above assessment by Leonardo MS-3. POD #1 s/p loop ileostomy reversal. Patient doing very well post op, good pain control, some evidence of GI return. He is mildly distended on exam this morning but soft with appropriate post op tenderness, incision clean with wound uyen in place, dressing change. VSS. Encouraged OOB/ambulation and increasing activity this morning. If more consistent flatus, likely advance to solid diet later today. Incentive spirometery encouraged 10x/hr. Will remove wound uyen tomorrow. <Susana Sunshine PA-C - Last Filed: 06/11/25 07:28> Time Spent With Patient Time: Total time managing care of this patient today ____ minutes. <Mckenna Patterson - Last Filed: 06/11/25 07:23> Quality Stroke Does the patient have a stroke diagnosis?: No <Susana Sunshine PA-C - Last Filed: 06/11/25 07:28> VTE Prior VTE?: No <Susana Sunshine PA-C - Last Filed: 06/11/25 07:28> VTE Risk Level:: Medical - moderate - high <Mckenna Patterson - Last Filed: 06/11/25 07:23> VTE Device Contraindication: N/A - Device Ordered <Mckenna Patterson - Last Filed: 06/11/25 07:23> VTE Drug Contraindication: N/A - Med Ordered <Mckenna Patterson - Last Filed: 06/11/25 07:23>
[2025-06-11] MEDS: Nicotine 21 MG PATCH.TD24 TRANSDERMA (07:38)
--- NOTE | 2025-06-11 11:42 | MHC.CM.PN ---
pt lives with is independent and working pt does not feel he will need services when dcd
--- NOTE | 2025-06-11 14:41 | PM.EVENT ---
Event Note Date of Service: 06/11/25 Event Note: Seen on afternoon rounds Says he feels well Tolerating clear liquids well Continues to pass flatus Has been ambulating Abdomen is soft and benign He looks well overall Stable vital signs He says he wants to try to have regular food We will order for regular diet for tonight Advised him to do only small meals for now Clinically doing well overall Time Spent With Patient Time: Total time managing care of this patient today ____ minutes.
--- NOTE | 2025-06-12 01:02 | PC.NURSE ---
Addendum entered by Alysia Tijerina RN 06/12/25 01:09: Report to oncoming RN given at 2145 Original Note: Assumed care of pt at 1900. Pt medicated per AUG. Call garcia in reach. Report given to oncoming RN. Plan of care ongoing.
[2025-06-12] MEDS: Lactated Ringers 1,000 ML 100 ML IVCONT (01:15)
[2025-06-12 03:38] VITALS: BP 146/75; PULSE 89; RESP 16; TEMP 36.2; O2SAT 95
[2025-06-12] MEDS: oxyCODONE HCl Immed Release 5 MG TABLET PO ×2 (06:03→11:06)
--- NOTE | 2025-06-12 07:10 | P.PNGS_ITS ---
Subjective Subjective Date of Service: 06/12/25 <Mckenna Patterson - Last Filed: 06/12/25 07:20> 06/12/25 <Susana Sunshine PA-C - Last Filed: 06/12/25 07:55> 06/12/25 <Rodger Gilliam MD - Last Filed: 06/12/25 08:03> Interval history: Patient reports pain unchanged from yesterday at 6/10. Aggravated by movement and managed with medications. Small PO intake last night with no nause or vomitting. No BM but more flatus. OOB. Denies fever and chills. <Mckenna Patterson - Last Filed: 06/12/25 07:20> Physical Exam 2 Vital Signs: Vital Signs: Last Vital Signs Temp 97.1 F 06/12/25 03:38 Pulse 89 06/12/25 03:38 Resp 16 06/12/25 03:38 BP 146/75 H 06/12/25 03:38 Pulse Ox 95 06/12/25 03:38 O2 Del Method Room Air 06/12/25 03:38 O2 Flow Rate 6 06/10/25 13:00 BMI result Body Mass Index 21.4 <Mckenna Patterson - Last Filed: 06/12/25 07:20> Const: General: no acute distress, alert and awake <Mckenna Patterson - Last Filed: 06/12/25 07:20> Orientation/consciousness: patient oriented x3 <Susana Sunshine PA-C - Last Filed: 06/12/25 07:55> Resp: Effort & Inspection: normal respiratory effort and able to speak in complete sentences <Mckenna Patterson - Last Filed: 06/12/25 07:20> Cardio: Rate: regular rate (on palpation) and Other <Mckenna Patterson - Last Filed: 06/12/25 07:20> Rhythm: regular rhythm (on palpation) and other <Mckenna Patterson - Last Filed: 06/12/25 07:20> GI: Other: incision clean, wound uyen removed, brandy intact <CAROLINA Levy Last Filed: 06/12/25 07:55> Inspection: Yes normal to inspection and Yes other (dressings clean, dry and intact ) <Mckenna Means Last Filed: 06/12/25 07:20> Palpation (GI): Soft to palpation, Tenderness to palpation present (GI), no guarding and not rigid <Mckenna Patterson - Last Filed: 06/12/25 07:20> Palpation (GI): Tenderness to palpation present (GI) (mild incisional) < Susana Sunshine PA-C - Last Filed: 06/12/25 07:55> Skin: General skin exam: no rashes or lesions noted <Susana Sunshine PA-C - Last Filed: 06/12/25 07:55> Neuro: General: patient oriented x3 and moves all extremities <Susana Sunshine PA-C - Last Filed: 06/12/25 07:55> Objective Data Active Medications Calcium Carbonate (Calcium Carbonate 750 Mg Tab.Chew) 750 mg PO Q4H PRN PRN Reason: Heartburn Docusate Sodium (Docusate Sodium 100 Mg Capsule) 100 mg PO BEDTIME [facility] Last Admin: 06/11/25 19:38 Dose: 100 mg Documented By: CASIE Heparin Sodium (Porcine) (Heparin Sodium,Porcine 5,000 Unit/Ml Vial) 5,000 unit SUBCUT Q8H [facility] Last Admin: 06/12/25 05:59 Dose: 5,000 unit Documented By: JESUS Lactated Ringer's (Lr) 1,000 mls @ 100 mls/hr IVCONT .Q10H [facility] Last Admin: 06/12/25 01:15 Dose: 100 mls/hr Documented By: JESUS Acetaminophen (Ofirmev) 1,000 mg in 100 mls @ 400 mls/hr IV Q6H [facility] Last Admin: 06/12/25 01:19 Dose: Not Given Documented By: JESUS Non-Admin Reason: over acetaminophen daily limit. Melatonin (Melatonin 3 Mg Tablet) 6 mg PO BEDTIME PRN PRN Reason: Insomnia Last Admin: 06/10/25 23:58 Dose: 6 mg Documented By: LILA Morphine Sulfate (Morphine Sulfate 4 Mg/Ml Cartridge) 4 mg IVPUSH Q4H PRN; Protocol PRN Reason: Pain, Severe (Pain Scale 7-10) Last Admin: 06/12/25 01:14 Dose: 4 mg Documented By: JESUS Nicotine (Nicotine 21 Mg Patch.Td24) 21 mg TRANSDERMA DAILY [facility] Last Admin: 06/11/25 07:38 Dose: 21 mg Documented By: MARIA DE JESUS Oxycodone HCl (Oxycodone Hcl Immed Release 5 Mg Tablet) 5 mg PO Q4H PRN PRN Reason: Pain, Moderate(Pain Scale 4-6) Last Admin: 06/12/25 06:03 Dose: 5 mg Documented By: JESUS Sodium Chloride (0.9 % Sodium Chloride Flush 3 Ml Syringe) 3 ml IVFLUSH QSHIFT [facility] Last Admin: 06/11/25 22:03 Dose: Not Given Documented By: JESUS Non-Admin Reason: IV Running <Mckenna Patterson - Last Filed: 06/12/25 07:20> Labs CBC & Chem 7: 06/10/25 15:39 06/10/25 15:39 <Mckenna Patterson - Last Filed: 06/12/25 07:20> Procedures Date of Service Date of Service: 06/12/25 <Mckenna Patterson - Last Filed: 06/12/25 07:20> 06/12/25 <Susana Sunshine PA-C - Last Filed: 06/12/25 07:55> 06/12/25 <Rodger Gilliam MD - Last Filed: 06/12/25 08:03> Progress Note: A&P Assessment and plan (1) Status post reversal of ileostomy: Status: Acute <Mckenna Patterson - Last Filed: 06/12/25 07:20> Assessment and Plan: Continues to feel well Tolerated regular diet Passing flatus Looks well Abdomen is soft and benign No evidence of wound infection Pain management Possible DC home later on today Seen and examined independently <Rodger Gilliam MD - Last Filed: 06/12/25 08:03> Assessment and Plan: Patient is POD2 s/o ileostomy reversal. He is doing well overall. Reports increased flatus and tolerating PO intake without nausea or vomitting. Mildly distended on abd exam and tenderness around incision sites. Continue bowel regimen. Cont pain medicatiosn. Encourage continued OOB and incentive spirometry. Wound wick removal today. <Mckenna Patterson - Last Filed: 06/12/25 07:20> Patient is POD2 s/o ileostomy reversal. He is doing well overall. Reports increased flatus and tolerating PO intake without nausea or vomitting. Mildly distended on abd exam and tenderness around incision sites. Continue bowel regimen. Cont pain medication. Encourage continued OOB and incentive spirometry. Wound wick removal today. Agree with above assessment and plan by Leonardo MS-3. POD #2 s/p ileostomy reversal. OVerall doing very well post op, tolerating solid diet with flatus. VSS. Abd exam benign with appropriate post op tenderness, incision clean and wound uyen removed. Encouraged use of oral analgesics only in preparation for discharge to home, possibly later today. Patient comfortable with plan. < Susana Sunshine PA-C - Last Filed: 06/12/25 07:55> Time Spent With Patient Time: Total time managing care of this patient today ____ minutes. <Mckenna Patterson - Last Filed: 06/12/25 07:20> Quality Stroke Does the patient have a stroke diagnosis?: No <Mckenna Patterson - Last Filed: 06/12/25 07:20> VTE Prior VTE?: No <Mckenna Patterson - Last Filed: 06/12/25 07:20> VTE Risk Level:: Medical - moderate - high <Mckenna Patterson - Last Filed: 06/12/25 07:20> VTE Device Contraindication: N/A - Device Ordered <Mckenna Patterson - Last Filed: 06/12/25 07:20> VTE Drug Contraindication: N/A - Med Ordered <Mckenna Patterson - Last Filed: 06/12/25 07:20>
[2025-06-12 07:47] VITALS: BP 139/69; PULSE 83; RESP 18; TEMP 37.1; O2SAT 94
[2025-06-12] MEDS: Nicotine 21 MG PATCH.TD24 TRANSDERMA (07:50)
--- NOTE | 2025-06-12 12:01 | PM.EVENT ---
Event Note Date of Service: 06/12/25 Event Note: He had wanted to be discharged around breakfast I explained to him that it may be best to wait a couple of hours after breakfast this was see how he is doing especially with regards to pain control He continues to do well He has been passing good amounts of flatus He is ambulating Abdomen remained soft and benign He will be discharged - discharge instructions reinforced with the patient His was involved with the discussion Time Spent With Patient Time: Total time managing care of this patient today ____ minutes.
--- NOTE | 2025-06-12 12:08 | MHC.CM.PN ---
PT CLEARED TO DC HOME, SELF CARE PT TO ARRANGE TRANSPORT
[2025-06-12 13:41] VITALS: BP 127/72; PULSE 106; RESP 18; TEMP 37.1; O2SAT 96
--- NOTE | 2025-06-12 15:55 | P.DS_ITS ---
DS: Providers Provider Date of admission: 06/10/25 09:58 Date of discharge: 06/12/25 Primary care physician: Huan Arias MD Attending physician on admission: Rodger Gilliam Consults: 06/10/25 14:53 Consult to Hospitalist Routine Comment: Consulting Provider: [facility] Hospitalists Reason For Exam: ETOH abuse, ?CIWA Attending physician on discharge: Rodger Gilliam DS: Diagnosis Discharge Diagnosis (1) Status post reversal of ileostomy: Status: Acute DS: Summary Hospital Course Hospital Course: HPI AT ADMISSION: The patient is a 60-year-old male with a loop ileostomy after reversal of colostomy for perforated diverticulitis, here for reversal of ileostomy. He understood the technique of the planned procedure and he was aware risks, benefits, alternatives. HOSPITAL COURSE: On 06/10/25, reversal loop ileostomy, lysis of adhesions was performed by Dr. Gilliam without complication. He tolerated the procedure well and was admitted for observation following. Hospitalist consult was obtained in view of his alcohol abuse history. He had an uncomplicated recovery course. He began to pass flatus on POD #1 and his diet was advanced from clear liquids to solids later in the day. The following day, POD#2 and the day of discharge, he felt well and was tolerating a solid diet without nausea or vomiting. He was encouraged to use oral analgesics for pain and was reassessed later in the day and had good pain control and was ambulating without difficulty. He continued to pass flatus. He was hemodynamically stable. His abdomen was benign with appropriate post op tenderness and clean incision, wound uyen were removed, scant drainage. He felt ready for discharge. He was discharged to home on 06/12/25 in stable condition. He is to follow up in the office in 2 weeks for wound check and staple removal. Status at Discharge Functional status at discharge: independent ambulation Overall status at discharge: patient is progressing back to baseline Time Attestation Discharge Coordination Time (in mins): 30 Quality: Safe Use of Opioids Does Pt have an Active Cancer Diagnosis on the Problem List?: No Quality: Stroke Does the patient have a stroke diagnosis?: No Physical Exam Vital Signs: Vital Signs: Last Vital Signs Temp 98.7 F 06/12/25 13:41 Pulse 106 H 06/12/25 13:41 Resp 18 06/12/25 13:41 BP 127/72 06/12/25 13:41 Pulse Ox 96 06/12/25 13:41 O2 Del Method Room Air 06/12/25 13:41 O2 Flow Rate 6 06/10/25 13:00 BMI result Body Mass Index 21.4 Const: General: comfortable, no acute distress and alert Orientation/consciousness: patient oriented x3 Resp: Effort & Inspection: normal respiratory effort GI: Other: soft mild incisional tenderness incision clean, brandy intact, wound uyen removed, scant drainage, no erythema Palpation (GI): Soft to palpation and no guarding Skin: General skin exam: no rashes or lesions noted Neuro: General: patient oriented x3 and moves all extremities DS: Data Data Completed and Pending Completed studies during hospitalization [Text1]: Pending at discharge 06/10/25 12:13 Surgical [PTH] Routine Ileostomy (reversal): -Intact mucocutaneous anastomosis with fibrosis, inflammation, reactive/hyperplastic epithelial changes, and foreign body granulomatous reaction. -Small bowel serosal fibrous adhesions Procedures Bypass Ileum to Cutaneous, Open Approach (03/14/25) Bypass Sigmoid Colon to Cutaneous, Open Approach (11/15/24) Excision of Sigmoid Colon, Percutaneous Endoscopic Approach, Hand-Assisted (11/15/24) Introduction of Anesthetic Agent into Peripheral Nerves and Plexi, Percutaneous Approach (03/14/25) Reposition Sigmoid Colon, Open Approach (03/14/25) Discharge Plan Discharge Anticipated Discharge Date/Time: 06/12/25 11:59 Patient Disposition: Home, Self-Care Discharge Diagnosis: s/p ileostomy reversal Referrals: Rodger Gilliam MD [Physician, General Surgery] - 2 Weeks Huan Arias MD [Primary Care Provider, Internal Medicine] - 1 Week Discharge Medications: New oxycodone 5 mg tablet 5 mg PO Q4H PRN (Reason: pain (scale score 7-10)) Qty: 26 0RF Rx Instructions: Partial Fill upon patient request. docusate sodium [Colace] 100 mg capsule 100 mg PO BID PRN (Reason: constipation) Qty: 30 0RF Continued ibuprofen [IBU] 800 mg tablet 800 mg PO DAILY Qty: 180 1RF Rx Instructions: with food Discharge Orders: Discharge Order (Routine); Ordered 06/12/25 Ordered By: Rodger Gilliam Diet: Advance to usual diet Activity on Discharge: No heavy lifting Stand Alone Forms: Patient Portal Discharge page Print Language: [place]se Activity Restrictions/Additional Instructions: If the incision area is tender, you may apply an ice pack for short intervals (No more than 20 minutes on, followed by at least 20 minutes off). Do not apply heat. Do not use creams, lotions, or topical antibiotics. These can cause infection or allergic reaction. Ok to shower. You have brandy closing your incision and these will be removed approximately 10-14 days after surgery. You had packing in place which has been removed and you may have some drainage from these areas- this is normal and expected. Keep covered with dry dressing and change daily while it drains. NO HEAVY LIFTING (>10lbs) or strenuous activity. Follow up in office. ([phone]) Call Your Doctor If: -Your temperature exceeds 101.5? F -You experience excessive pain or swelling -You have an unexpected reaction to medication -You have excessive bleeding -You experience continued vomiting/nausea -Your incision begins to separate -Your incision shows signs of infection such as increased redness, swelling, excessive pain, drainage (light blood or clear fluid is normal) or heat Care Plan Goals: Return to baseline health and resume normal activities following recovery period. Health Concerns: hx of perforated diverticulitis s/p joanne procedure with subsequent colostomy reversal and loop ileostomy creation Smoker Plan of Treatment: s/p ileostomy reversal Follow up in the office in 2 weeks No heavy lifting Pain control Assessment: Doing well post op Discharge Date/Time: 06/12/25 14:04
== END 2025-06-12 14:04 | disposition home or self-care (01) | DRG 230 ==
LOC: HO.SSSA 09:59 → HO.S3 13:00
PROVIDERS: Hospitalist; Admitting Provider Surgery; PCP Internal Medicine; Visit Provider Surgery
PROC: 0DQB0ZZ Repair Ileum, Open Approach (ICD-10-PCS; CPT 44620; principal; 2025-06-10 11:20)
DX: Z43.2 Encounter for attention to ileostomy (principal); F10.20 Alcohol dependence, uncomplicated; N40.1 Benign prostatic hyperplasia with lower urinary tract symptoms; I10 Essential (primary) hypertension; R39.14 Feeling of incomplete bladder emptying; F17.210 Nicotine dependence, cigarettes, uncomplicated; Z71.6 Tobacco abuse counseling
CPT/HCPCS: 36415; 80053; 85025; 88304; J0131; J0690; J1100; J1171; J1644; J2003; J2270; J2405; J2704; J2795; J3010; J7120

== ENCOUNTER → 2025-06-10 09:58 | Outpatient (BNV) | payer BC, SELFPAY | PROVIDERS: Admitting Provider Surgery; PCP Internal Medicine; Visit Provider Hospitalist | DX: R73.09 Other abnormal glucose (principal); Z93.3 Colostomy status; K40.20 Bilateral inguinal hernia, without obstruction or gangrene, not specified as recurrent; R31.9 Hematuria, unspecified; F17.210 Nicotine dependence, cigarettes, uncomplicated; F10.20 Alcohol dependence, uncomplicated | CPT/HCPCS: 99253 ==

== ENCOUNTER → 2025-06-10 09:58 | Outpatient (BNV) | payer BC, SELFPAY | PROVIDERS: Admitting Provider Surgery; PCP Internal Medicine; Visit Provider Surgery | DX: Z98.890 Other specified postprocedural states (principal) | CPT/HCPCS: 99024; 99499 ==

== ENCOUNTER 2025-06-20 14:32 | Outpatient (AMB) | payer BC, SELFPAY ==
--- NOTE | 2025-06-20 14:36 | MHC.PC.OV ---
Vital Signs 06/20/25 14:38 Height 5 ft 7 in Weight 145 lb 4 oz BMI 22.7 BP 126/62 Blood Pressure Location Lt brachial Position Sitting Temp 97.5 F Temp Source Temporal Artery Scan Intake Visit Reasons: TCM 06/12 Colostomy Intake Note: Patient is here for hospital discharge and TCM follow up. Patient was discharged from [facility] on 06/12/25. Drop Wire Stringer Required: No Printing Machinist: Not Required per policy Accompanied by: Self / Same As Patient Allergies No Known Allergies Allergy (Verified 06/20/25 14:37) Tobacco use date assessed: 06/20/25 Dental Screening Dental Screen Date: 03/26/25 HPI TCM TCM Information Date of Discharge 06/12/25 Discharged From [facility] Interactive Contact Date (Reference documentation from this date) 06/13/25 HPI Comments History of Present Illness Details 60-year-old male presents to the clinic today for TCM follow-up after recent hospitalization. PMHx significant for s/p bilateral inguinal hernia repair, constipation, and ETOH abuse. Patient was admitted to [facility] from 06/10?06/12 for reversal of ileostomy following prior colostomy for perforated diverticulitis. On 06/10/25, patient underwent reversal of loop ileostomy with lysis of adhesions, performed by Dr. Gilliam, without reported complications. Today, patient reports mild tenderness at the surgical site with associated redness and brownish discharge from the wound. He contacted the general surgery office and was advised to hold antibiotics for now and follow up with Dr. Gilliam on Monday. He denies fevers, chills, nausea, or vomiting. Pain is well controlled with alternating NSAIDs and oxycodone, with good relief. Patient reports he initially experienced constipation post-discharge, which has since resolved after taking stool softeners. Denies urinary symptoms. Reports good appetite and states he has been hydrating well with fluids. [facility] Medical History (Updated 06/20/25 @ 00:01 by Lamar King) Ileostomy in place Perforated diverticulum Alcohol dependence Atypical chest pain Bilateral inguinal hernia Nicotine dependence, cigarettes, uncomplicated History of colon polyps Surgical History (Updated 06/20/25 @ 14:41 by LURDES Miguel) History of colostomy reversal Hx of surgical procedure (~06/10/25) Hx of surgical procedure (~03/14/25) Hx of colonoscopy History of exploratory laparotomy (11/15/24) History of cystoscopy History of colonoscopy (02/11/25) Family History (Updated 06/20/25 @ 14:37 by LURDES Miguel) Mother No problems noted. Father No problems noted. Social History (Updated 06/20/25 @ 14:41 by LURDES Miguel) Household Members: Family Household Members Other:: grandchildren Housing: House Are you a primary regular senior care provider to a significant other at home: No Do you presently have visiting nurse or other home services: No Alcohol intake: current Alcohol intake frequency: other Alcohol type: beer Comment: COUNTS CORRECT; 6-10 beers per day Patient Tobacco Use Status: Current everyday Tobacco user Tobacco use type: Cigarette Cigarette Packs Per Day: 1 Cigarettes Per Day: 20.0 Years Smoked: (onset 13yo, 1ppd x 43yrs, 40pyh) e-Cigarette/Vaping Use: Never Used Second Hand Smoke Exposure: Yes Substance Use Type: Marijuana service: No Current occupational status: employed Cognitive needs: No Hearing needs: No Vision needs: Yes (reading glasses) Questionnaire Thrive Questionnaire Date Thrive assessed: 06/11/25 TODD-7 AMB Questionnaire TODD-7 Date TODD - 7 assessed: 03/26/25 Source: Developed by Drs. Angel Pace, Christina Calloway, Leonel Galloway and colleagues, with an educational roxie from [employer]. Review of Systems Const All systems reviewed & are unremarkable except as noted in HPI and below Physical exam (Primary Care) Vital Signs: Last Vital Signs Temp 97.5 F 06/20/25 14:38 BP 126/62 06/20/25 14:38 BMI result Body Mass Index 22.7 Tobacco/Smoking Status: Tobacco use Status Tobacco use date assessed 06/20/25 06/20/25 14:43 Patient Tobacco Use Status Current everyday Tobacco 06/20/25 14:43 Tobacco use type Cigarette 06/20/25 14:43 e-Cigarette/Vaping Use Never Used 06/20/25 14:43 Thrive Assessment: Date of Thrive Assessment Date Thrive assessed 06/11/25 06/20/25 14:43 Const General: comfortable and no acute distress Orientation/consciousness: patient oriented x3 Resp Effort & Inspection: normal respiratory effort Cardio Rate: regular rate GI Other: Abdomen: Mild tenderness noted at surgical site. Surrounding erythema present with reported brownish discharge. No reported severe pain, guarding, or rigidity. Palpation (GI): Soft to palpation, not firm, Tenderness to palpation present (GI) in the RLQ and periumbilically, no guarding and not rigid Auscultation: normal bowel sounds Skin Other: Neuro General: patient oriented x3, gait normal and moves all extremities Coding Level of Care Code TCM Mod MDM <= 14 Days Diagnoses Status post reversal of ileostomy Z98.890 Time Spent (min) 25 Assessment & Plan Assessment & Plan (1) Status post reversal of ileostomy: Code(s): Z98.890 - Other specified postprocedural states Category: Surgical Plan: Status post ileostomy reversal ? recent surgical intervention with mild localized wound symptoms. Postoperative wound changes ? redness and brownish discharge; currently being followed by general surgery, no systemic infection signs at this time. Pt has appointment with Dr. Dalton Monday. Postoperative pain ? controlled with NSAIDs and oxycodone. Continue to monitor surgical site closely for worsening redness, increased drainage, foul odor, fever, or increasing pain. Hold antibiotics as advised by general surgery until follow-up with Dr. Gilliam on Monday. Continue current pain management regimen as prescribed; encouraged minimizing Opioid use as tolerated. Continue stool softeners PRN to prevent constipation, especially while using Opioids. Encouraged adequate hydration and balanced diet to support healing. Reviewed return precautions: seek immediate care for fever, chills, worsening abdominal pain, increased wound drainage, or signs of infection. Follow up with General Surgery as scheduled and return to clinic as needed.
[2025-06-20 14:38] VITALS: BP 126/62; TEMP 36.4; BMI 22.7
--- OUTSIDE RECORDS SUMMARY | 2025-06-20 15:58 | XMS_ITS | Patient Health Record ---
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; 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 QD Problems Problem Type SNOMED Code ICD Code Onset Dates Problem Status W/U Status Risk Notes Problem Screening for malignant neoplasm of colon (562432330) Encounter for screening for malignant neoplasm of colon (Z12.11) Active confirmed Problem Screening for malignant neoplasm of rectum (319292680) Encounter for screening for malignant neoplasm of rectum (Z12.12) Active confirmed Problem Preprocedural examination (103054295599660) Preprocedural examination (Z01.818) Active confirmed Plan Of Treatment Future Test Test Name Order Date COLONOSCOPY 06/17/2016 Insurance Providers Payer Name Payer Address Payer Phone Subscriber Number Group Number Insured Name Patient Relationship to Insured Coverage Start Date Coverage End Date [facility] [address] [place] [phone] [id number] LINNEA FELIX Self - patient is the insured Medical (General) History Medical History History ICD Code Denies [place],DM,CVA,renal disease Back and neck pain. Early COPD Surgical History Surgery Date(Month/Year) shoulder surgery-rotator cuff--left 2012
--- OUTSIDE RECORDS SUMMARY | 2025-06-20 15:58 | XMS_ITS | Clinical Summary ---
Author Organization [facility] Address [address] [address] Phone Care Team Providers Care Shoe Laster Name Role Phone Unknown, Unknown Primary Care [...] (2 - 2024-2 6 season) 2025 10/02/2020 RSV VACCINE (1 - 1-dose 75+ series) 2041 HEPATITIS A VACCINES Aged Out No long [...] topic Medical Devices Not on file Insurance [facility] HMO POS [facility] H[facility] POS [facility] [place] [address] [place] [address] [place] [address] [place] [address] [place] [address] HMO POS HMO POS HMO POS Care Teams Shoe Laster Relationship Specialty Start Date End Date Unknown, Unknown, PCP - General 08/03/20 Additional Source Comments The information contained in this document represents components of the legal health record. It is not the complete legal health record.[facility]
== END 2025-06-20 15:21 | disposition home or self-care (01) ==
LOC: HO.HMCH 14:33
PROVIDERS: PCP Internal Medicine; Visit Provider Nurse Practitioner Family
DX: Z98.890 Other specified postprocedural states (principal)

== ENCOUNTER 2025-06-23 08:41 | Outpatient (AMB) | payer BC, SELFPAY ==
--- NOTE | 2025-06-23 08:47 | A.OFFVIS_ITS ---
Vital Signs 06/23/25 08:52 Height 5 ft 7 in Weight 140 lb BMI 21.9 BP 133/72 Blood Pressure Location Rt brachial Position Sitting Pulse 68 Intake Visit Reasons: S/P reversal loop ileostomy Intake Note: Patient presents for post-op follow-up status post Reversal loop ileostomy, this has adhesions. (06/10/2025) Pt c/o; site oozing, yellowish discharge, redness, inflamed. Patient thinks site is infected. Farm Equipment Operator Required: No Accompanied by: Self / Same As Patient Allergies No Known Allergies Allergy (Verified 06/23/25 08:53) HPI HPI S/P reversal loop ileostomy: Details: He underwent reversal of his loop ileostomy last June 10, 2025. He tolerated procedure well. He says that he has good oral intake. He has good bowel movements. His main complaint now is that he has dysuria. He has had this from before as well. [facility] Medical History Ileostomy in place Perforated diverticulum Alcohol dependence Atypical chest pain Bilateral inguinal hernia Nicotine dependence, cigarettes, uncomplicated History of colon polyps Surgical History History of colostomy reversal Hx of surgical procedure (~06/10/25) Hx of surgical procedure (~03/14/25) Hx of colonoscopy History of exploratory laparotomy (11/15/24) History of cystoscopy History of colonoscopy (02/11/25) Family History Mother No problems noted. Father No problems noted. Social History Household Members: Family Household Members Other:: grandchildren Housing: House Are you a primary plant health care technician to a significant other at home: No Do you presently have visiting nurse or other home services: No Alcohol intake: current Alcohol intake frequency: other Alcohol type: beer Comment: COUNTS CORRECT; 6-10 beers per day Patient Tobacco Use Status: Current everyday Tobacco user Tobacco use type: Cigarette Cigarette Packs Per Day: 1 Cigarettes Per Day: 20.0 Years Smoked: (onset 13yo, 1ppd x 43yrs, 40pyh) e-Cigarette/Vaping Use: Never Used Second Hand Smoke Exposure: Yes Substance Use Type: Marijuana service: No Current occupational status: employed Cognitive needs: No Hearing needs: No Vision needs: Yes (reading glasses) Review of Systems Const Denies chills and Denies fever(s) GI Denies vomiting Physical Exam Vital Signs: Last Vital Signs Pulse 68 06/23/25 08:52 BP 133/72 06/23/25 08:52 BMI result Body Mass Index 21.9 Const General: comfortable and no acute distress Resp Effort & Inspection: normal respiratory effort GI Other: Incision clean, dry, with some small skin separation with good granulation in between, no signs of infection, some fibrinous exudates Palpation (GI): Soft to palpation, not firm and no guarding Assessment & Plan Assessment & Plan (1) Status post reversal of ileostomy: Code(s): Z98.890 - Other specified postprocedural states Category: Surgical Plan: He is doing very well postoperatively. I removed his brandy I cleaned up his incision as well and applied dry dressings. I advised him to avoid lifting anything more than 20 lb. I will see him again in the office in a month. Coding Level of Care Code Global (30970) Diagnoses Status post reversal of ileostomy Z98.890
[2025-06-23 08:52] VITALS: BP 133/72; PULSE 68; BMI 21.9
--- OUTSIDE RECORDS SUMMARY | 2025-06-23 09:04 | XMS_ITS | Clinical Summary ---
Author Organization [facility] Address [address] [address] Phone Care Team Providers Care Director Of Player Personnel Name Role Phone Unknown, Unknown Primary Care [...] topic Medical Devices Not on file Insurance [facility] HMO POS [facility] HMO POS [facility] [place] [address] [place] [address] [place] [address] [place] [address] [place] [place] [address] [place] [address] HMO POS HMO POS HMO POS Care Teams Director Of Player Personnel Relationship Specialty Start Date End Date Unknown, Unknown, PCP - General 08/03/20 Additional Source Comments The information contained in this document represents components of the legal health record. It is not the complete legal health record.[facility]
--- OUTSIDE RECORDS SUMMARY | 2025-06-23 09:04 | XMS_ITS | Patient Health Record ---
Author Organization 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 QD Problems Problem Type SNOMED Code ICD Code Onset Dates Problem Status W/U Status Risk Notes Problem Screening for malignant neoplasm of colon (220992604) Encounter for screening for malignant neoplasm of colon (Z12.11) Active confirmed Problem Screening for malignant neoplasm of rectum (607040261) Encounter for screening for malignant neoplasm of rectum (Z12.12) Active confirmed Problem Preprocedural examination (107711105554054) Preprocedural examination (Z01.818) Active confirmed Plan Of Treatment Future Test Test Name Order Date COLONOSCOPY 06/17/2016 Insurance Providers Payer Name Payer Address Payer Phone Subscriber Number Group Number Insured Name Patient Relationship to Insured Coverage Start Date Coverage End Date [facility] [address] [facility] [place] [phone] [id number] LINNEA FELIX Self - patient is the insured Medical (General) History Medical History History ICD Code Denies [place],DM,CVA,renal disease Back and neck pain. Early COPD Surgical History Surgery Date(Month/Year) shoulder surgery-rotator cuff--left 2012
== END 2025-06-23 09:17 | disposition home or self-care (01) ==
LOC: HO.HGS 08:41
PROVIDERS: PCP Internal Medicine; Visit Provider Surgery
DX: Z98.890 Other specified postprocedural states (principal)
CPT/HCPCS: 99024

== ENCOUNTER 2025-06-24 13:18 | Outpatient (AMB) | payer BC, SELFPAY ==
--- NOTE | 2025-06-24 13:20 | MHC.OFFVIS ---
Intake Visit Reasons: Hydrocele SET ( NO UA ) Intake Note: Patient is present for Hydrocele follow up Urology Med: None Blood Thinner: None NKDA Imaging: Abd Pelvis CT 04/03/25 Talent Acquisition Lead Required: No Accompanied by: Self / Same As Patient Allergies No Known Allergies Allergy (Verified 06/24/25 13:21) HPI Comments Details: Rene is a pleasant male. He is a patient Dr. Chris. He is seen for the following urologic conditions - microscopic hematuria Difficulty urination during ileostomy Has not been on alpha blockers before Start tamsulosin Microscopic hematuria Microscopic hematuria was diagnosed during - PCP visit They are here for the - initial evaluation Since the last visit the patient has - continues test positive microscopic hematuria on multiple occasions Relevant medical history - anticoagulation therapy - no - kidney stones no - prostatitis no Prior tobacco use - yes current smoker. 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 Radiographic imaging: Completed CT scan and ultrasound which are both normall Other investigations - cytology 06/23 negative Cystoscopy findings normal Therapeutic plan - 12 month follow-up [facility] Medical History Ileostomy in place Perforated diverticulum Alcohol dependence Atypical chest pain Bilateral inguinal hernia Nicotine dependence, cigarettes, uncomplicated History of colon polyps Surgical History History of colostomy reversal Hx of surgical procedure (~06/10/25) Hx of surgical procedure (~03/14/25) Hx of colonoscopy History of exploratory laparotomy (11/15/24) History of cystoscopy History of colonoscopy (02/11/25) Family History Mother No problems noted. Father No problems noted. Social History Household Members: Family Household Members Other:: grandchildren Housing: House Are you a primary child care development specialist to a significant other at home: No Do you presently have visiting nurse or other home services: No Alcohol intake: current Alcohol intake frequency: other Alcohol type: beer Comment: COUNTS CORRECT; 6-10 beers per day Patient Tobacco Use Status: Current everyday Tobacco user Tobacco use type: Cigarette Cigarette Packs Per Day: 1 Cigarettes Per Day: 20.0 Years Smoked: (onset 13yo, 1ppd x 43yrs, 40pyh) e-Cigarette/Vaping Use: Never Used Second Hand Smoke Exposure: Yes Substance Use Type: Marijuana service: No Current occupational status: employed Cognitive needs: No Hearing needs: No Vision needs: Yes (reading glasses) Review of Systems Const Denies chills and Denies fever(s) Card Reports no additional complaints and Denies syncope Resp Denies cough GI Denies abdominal pain and Denies heartburn Reports as per HPI and Denies change in libido Neuro Denies syncope Psych Denies change in libido Endo Denies change in libido Physical Exam Const General: cooperative, healthy appearing, comfortable and no acute distress Orientation/consciousness: patient oriented x3 HEENT Face and sinus: Yes normal facial exam Mouth: moist mucous membranes Neck Neck: Yes normal visual inspection, Yes full ROM and Yes trachea midline Chest Chest palpation & inspection: normal inspection of the chest Resp Effort & Inspection: normal respiratory effort, able to speak in complete sentences and no respiratory distress GI Inspection: Yes normal to inspection Back/Spine/Pelvis Cervical Spine: normal cervical lordosis Thoracic/Lumbar Spine: thoracic and lumbar spine normal to inspection Skin General skin exam: no rashes or lesions noted Neuro General: patient oriented x3, gait normal, tone normal and moves all extremities Extrem General: Yes normal to inspection and Yes capillary refill normal Assessment & Plan Assessment & Plan (1) Bladder outlet obstruction: Code(s): N32.0 - Bladder-neck obstruction Category: Medical Plan Trial alpha-noah He will call if would like to continue Orders: Orders US bladder 06/24/25 N32.0 - Bladder-neck obstruction Medications: New tamsulosin 0.4 mg PO BEDTIME 30 days 30 tabs 1RF N32.0 - Bladder-neck obstruction Patient Instructions: This note is constructed using voice recognition software. While every effort has been made to ensure accuracy boarding house cook errors may have been included. Imaging studies, laboratory and physical exam results were discussed and reviewed in detail. No major barriers to patient understanding were identified. An opportunity to ask questions regarding the treatment plan was provided. All questions were answered. The patient expressed understanding and agreement with the above treatment plan. The patient is aware they should contact our office by phone for worsening of their current condition or the appearance of new urologic symptoms. Compliance is encouraged with any medications and followup testing that is ordered. It is a privilege to participate in the urologic care of your patient. If you have any questions or concerns regarding treatment for the above conditions, or other urologic issues, please do not hesitate to contact me. The office telephone contact is [phone]. Sincerely, Dr Amos Jacobo MD, [facility] - Urology Compassionate Specialist Care for the Genitourinary System Coding Level of Care Code Est Pt Level 4 (98890) Diagnoses Bladder outlet obstruction N32.0
--- OUTSIDE RECORDS SUMMARY | 2025-06-24 14:25 | XMS_ITS | Clinical Summary ---
Author Organization [facility] Address [address] [address] Phone Care Team Providers Care Business Transformation Consultant Name Role Phone Unknown, Unknown Primary [...] topic Medical Devices Not on file Insurance [facility] HMO POS [facility] HMO POS [facility] [place] [address] [place] [address] [place] [address] [place] [address] [place] [address] [place] [address] HMO POS HMO POS HMO POS Care Teams Business Transformation Consultant Relationship Specialty Start Date End Date Unknown, Unknown, PCP - General 08/03/20 Additional Source Comments The information contained in this document represents components of the legal health record. It is not the complete legal health record.[facility]
--- OUTSIDE RECORDS SUMMARY | 2025-06-24 14:25 | XMS_ITS | Patient Health Record ---
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 Section Notes: Smoker 1ppd; 2 beers QD Problems Problem Type SNOMED Code ICD Code Onset Dates Problem Status W/U Status Risk Notes Problem Screening for malignant neoplasm of colon (861019794) Encounter for screening for malignant neoplasm of colon (Z12.11) Active confirmed Problem Screening for malignant neoplasm of rectum (971648824) Encounter for screening for malignant neoplasm of rectum (Z12.12) Active confirmed Problem Preprocedural examination (489210523894900) Preprocedural examination (Z01.818) Active confirmed Plan Of Treatment Future Test Test Name Order Date COLONOSCOPY 06/17/2016 Insurance Providers Payer Name Payer Address Payer Phone Subscriber Number Group Number Insured Name Patient Relationship to Insured Coverage Start Date Coverage End Date [facility] [address] [place] [phone] [id number] LINNEA FELIX Self - patient is the insured Medical (General) History Medical History History ICD Code Denies [place],DM,CVA,renal disease Back and neck pain. Early COPD Surgical History Surgery Date(Month/Year) shoulder surgery-rotator cuff--left 2012
== END 2025-06-24 14:04 | disposition home or self-care (01) ==
LOC: HO.HUSH 13:18
PROVIDERS: PCP Internal Medicine; Visit Provider Urology
DX: N32.0 Bladder-neck obstruction (principal)
CPT/HCPCS: 99214

== ENCOUNTER 2025-07-01 14:48 | Outpatient (AMB) | payer BC, SELFPAY ==
[2025-07-01 14:55] VITALS: BP 122/74; PULSE 82; TEMP 36.3; O2SAT 98; BMI 22.2
--- NOTE | 2025-07-01 14:55 | A.OFFPC_ITS ---
Vital Signs 07/01/25 14:55 Height 5 ft 7 in Weight 142 lb BMI 22.2 BP 122/74 Blood Pressure Location Rt brachial Position Sitting Pulse 82 Pulse Source Pulse Oximeter Temp 97.4 F Temp Source Temporal Artery Scan Pulse Oximetry (%) 98 Oxygen Delivery Method Room Air Intake Visit Reasons: Hernia Discussion / Divert Charging Operator Required: No Accompanied by: Self / Same As Patient Allergies No Known Allergies Allergy (Verified 07/22/25 11:29) Medication List - Last Reconciled 07/01/25 by NAYAN Jerome docusate sodium (Colace) 100 mg PO BID PRN ibuprofen (IBU) 800 mg PO DAILY tamsulosin 0.4 mg PO BEDTIME 30 days Tobacco use date assessed: 07/01/25 Dental Screening Dental Screen Date: 07/01/25 Did you have a dental visit in the last 12 months?: Yes Did you have a dental problem in the last 6 months where you did not have access to dental care?: No HPI HPI Comments History of Present Illness Details History of Present Illness The patient is a 60 year old male with Alcohol dependence, smoking, history of perforated diverticulitis presenting for follow-up after recent surgery for diverticulitis and for evaluation and referral for an inguinal hernia. He underwent his third and final surgery for diverticulitis, a reversal, on the of this month. Post-operatively, he was passing gas almost immediately but did not have a bowel movement for several days, which caused him some concern, though his bowel function has since normalized. The patient is seeking to address a bothersome right inguinal hernia, which presents as a large bulge that has recently dropped a little bit. He reports that the hernia is likely on both sides, though more prominent on the right, and is reducible, nearly disappearing when he is lying down. At times, the hernia is very sore. He had been scheduled for hernia surgery prior to the onset of his diverticulitis issues. He also reports testicular pain that has been bothering him for a while, as well as urination issues. Following his second surgery, after a catheter was removed, he experienced severe pain with urination that prompted an emergency room visit where no cause was found. He saw a urologist last week and was prescribed Flomax, which he has not yet picked up. A scrotal ultrasound from April showed bilateral hydroceles. Medical History: - Diverticulitis - Inguinal hernia - Bilateral hydroceles Surgical History: - Patient has had three surgeries for di verticulitis, the most recent being a reversal on the of this month. Medications: - He was recently prescribed Flomax by a urologist but has not yet started the medication. Health Maintenance - The patient has a routine follow-up ap pointment scheduled in August. - He expressed a desire to improve his [facility] before his planned [facility] in 2025. Social History - Employment: The patient is planning on retiring in 2025. Results - Imaging: A scrotal ultrasound in [facility] er revealed bilateral hydroceles. - Other diagnostics: Unspecified tests w ere performed at an emergency room visit for dysuria and were negative. Patient was informed and verbally consented to the use of an ambient scribe for clinic note documentation during this visit. [facility] Medical History (Updated 08/10/25 @ 08:34 by NAYAN Jerome) Alcohol dependence Atypical chest pain Bilateral inguinal hernia History of colon polyps Hydrocele, bilateral Ileostomy in place Nicotine dependence, cigarettes, uncomplicated Perforated diverticulum Surgical History (Updated 07/22/25 @ 12:01 by Destin Rojas MD) History of colonoscopy (02/11/25) History of colostomy reversal History of cystoscopy History of exploratory laparotomy (11/15/24) Hx of colonoscopy Hx of surgical procedure (~03/14/25) Hx of surgical procedure (~06/10/25) Status post reversal of ileostomy Family History Mother No problems noted. Father No problems noted. Social History Household Members: Family Household Members Other:: grandchildren Housing: House Are you a primary critical care nurse practitioner to a significant other at home: No Do you presently have visiting nurse or other home services: No Alcohol intake: current Alcohol intake frequency: other Alcohol type: beer Comment: COUNTS CORRECT; 6-10 beers per day Patient Tobacco Use Status: Current everyday Tobacco user Tobacco use type: Cigarette Cigarette Packs Per Day: 1 Cigarettes Per Day: 20.0 Years Smoked: (onset 13yo, 1ppd x 43yrs, 40pyh) e-Cigarette/Vaping Use: Currently Using Second Hand Smoke Exposure: Yes Substance Use Type: Marijuana service: No Current occupational status: employed Cognitive needs: No Hearing needs: No Vision needs: Yes (reading glasses) Questionnaire PHQ-9 Over the last 2 weeks, how often have you been bothered by any of the following problems? 1. Little interest or pleasure in doing things: not at all 2. Feeling down, depressed, or hopeless: not at all 3. Trouble falling or staying asleep, or sleeping too much: not at all 4. Feeling tired or having little energy: not at all 5. Poor appetite or overeating: not at all 6. Feeling bad about yourself - or that you are a failure or have let yourself or your family down: not at all 7. Trouble concentrating on things, such as reading the newspaper or watching television: not at all 8. Moving or speaking so slowly that other people could have noticed. Or the opposite - being so fidgety or restless that you have been moving around a lot more than usual: not at all 9. Thoughts that you would be better off or of hurting yourself in some way: not at all Total score: 0 Depression Screening Interpretation: Negative Depression Screening Done: Yes Source: Developed by Drs. Angel Pace, Leonel Bella and colleagues, with an educational roxie from [employer]. Thrive Questionnaire Date Thrive assessed: 06/11/25 AUDIT C Alcohol Use Questionnaire (AUDIT-C) 2. How many drinks containing alcohol do you have on a typical day when you are drinking?: 3 or 4 3. How often do you have six or more drinks on one occasion?: Daily or almost daily Total Score: 5 TODD-7 AMB Questionnaire TODD-7 Date TODD - 7 assessed: 03/26/25 Source: Developed by Drs. Angel Pace, Leonel Bella and colleagues, with an educational roxie from [employer]. Review of Systems Narrative Review of Systems - Abdomen/Groin: Reports a reducible bulge, consistent with a hernia, which is sometimes sore. - Genitourinary: Reports testicular pain and general issues with urination. - Reports a history of severe dysuria after catheter removal. - Gastrointestinal: Reports passing gas normally after his recent surgery, but a delayed return of bowel movements. Physical exam (Primary Care) Vital Signs: Last Vital Signs Temp 97.4 F 07/01/25 14:55 Pulse 82 07/01/25 14:55 BP 122/74 07/01/25 14:55 Pulse Ox 98 07/01/25 14:55 Oxygen Delivery Method Room Air 07/01/25 14:55 BMI result Body Mass Index 22.2 GENERAL Well developed, Well nourished, in no apparent distress HEENT Head-Normocephalic Neck- Supple, No lymphadenopathy, thyroid WNL RESPIRATORY Normal I:E, Clear to auscultation CARDIOVASCULAR Regular, rate and rhythm, No murmurs or rubs GASTROINTESTINAL Soft, nontender, normal bowel sounds, large right inguinal hernia, reducible also small left inguinal hernia NEUROLOGICAL Gait normal PSYCHIATRIC Oriented to person, place and time Mood and affect WNL Appearance WNL Speech WNL Thought processes WNL Tobacco/Smoking Status: Tobacco use Status Tobacco use date assessed 07/01/25 07/01/25 15:03 Patient Tobacco Use Status Current everyday Tobacco 07/01/25 15:03 Tobacco use type Cigarette 07/01/25 15:03 e-Cigarette/Vaping Use Currently Using 07/01/25 15:03 PHQ-9: PHQ-9 Score PHQ-9: Total score 0 08/05/25 13:14 Depression Screening Interpretation: Negative Thrive Assessment: Date of Thrive Assessment Date Thrive assessed 06/11/25 07/01/25 15:03 Narrative Physical Exam Coding Level of Care Code Established Pt Est Pt Level 4 (14734) Established Pt Add On Problem Visit Only Patient Type Established Diagnoses Non-recurrent bilateral inguinal hernia without obstruction or gangrene K40.20 Obstruction and gangrene presence: without obstruction or gangrene Recurrence: non-recurrent Hydrocele, bilateral N43.3 Bladder outlet obstruction N32.0 Time Spent (min) 30 Comment Time was spent on chart review, H&P, Patient education and orders. Assessment & Plan Assessment & Plan (1) Bilateral inguinal hernia: Code(s): K40.20 - Bilateral inguinal hernia, without obstruction or gangrene, not specified as recurrent Category: Medical Qualifiers: Obstruction and gangrene presence: without obstruction or gangrene Recurrence: non-recurrent Qualified Code(s): K40.20 - Bilateral inguinal hernia, without obstruction or gangrene, not specified as recurrent Plan: Patient was seen by Dr. Destin Rojas October 2024. Will refer back to surgery (2) Hydrocele, bilateral: Code(s): N43.3 - Hydrocele, unspecified Category: Medical Plan: Will continue to follow up with Urology (3) Bladder outlet obstruction: Code(s): N32.0 - Bladder-neck obstruction Plan: Will continue to follow up with Urology Plan Plan Patient was informed and verbally consented to the use of an ambient scribe for clinic note documentation during this visit. 1. Inguinal Hernia The patient reports a bothersome, reducible inguinal hernia, which is possibly bilateral, and would like to proceed with surgical repair. A referral will be placed with General Surgery for evaluation. An attempt will be made to identify the surgeon he was previously scheduled with, or to schedule him with Dr. Gilliam, who performed his prior abdominal surgeries. 2. History Of Diverticulitis The patient is recovering well from his recent diverticulitis reversal surgery and reports normal GI function. He will continue with his routine follow-up appointment scheduled in August. 3. Testicular Pain And Bilateral Hydroceles The patient reports testicular pain, and a prior ultrasound confirmed the presence of bilateral hydroceles, which may be contributing to his symptoms. He has recently been evaluated by a urologist who prescribed Flomax. Management will be deferred to the urologist. Discussion Notes I discussed with the patient his goal of proceeding with hernia repair. I informed him that I will place a referral to the general surgery department for consultation. We discussed the possibility of scheduling with his previous surgeon or with Dr. Gilliam to potentially expedite the process. I advised him it may take approximately a week for the surgeon's office to contact him and that the surgeon may recommend waiting a period of time after his recent surgery before proceeding with another operation. We agreed to keep his existing routine follow-up appointment in August. Patient Instructions - I am placing a referral to a general surgeon to discuss repairing your hernia. - The surgeon's office should contact you within about a week to schedule an appointment. - Keep your scheduled follow-up appointment with me in August. - A urologist recently prescribed you Flomax for urinary issues and testicle pain; please pick up truck driver this prescription and take it as directed. Orders: Referrals General Surgery Referral K40.20 - Bilateral inguinal hernia, without obstruction or gangrene, not specified as recurrent
--- OUTSIDE RECORDS SUMMARY | 2025-07-01 18:24 | XMS_ITS | Clinical Summary ---
Author Organization [facility] Address [address] [address] Phone Care Team Providers Care Trip Follower Name Role Phone Unknown, Unknown Primary Care [...] topic Medical Devices Not on file Insurance [facility] HMO POS [facility] HMO POS [facility] [place] [address] [place] [address] [place] [address] [place] [address] [place] [address] [place] [address] HMO POS HMO POS HMO POS Care Teams Trip Follower Relationship Specialty Start Date End Date Unknown, Unknown, PCP - General 08/03/20 Additional Source Comments The information contained in this document represents components of the legal health record. It is not the complete legal health record.[facility]
--- OUTSIDE RECORDS SUMMARY | 2025-07-01 18:24 | XMS_ITS | Patient Health Record ---
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: Smoker 1ppd; 2 beers QD Problems Problem Type SNOMED Code ICD Code Onset Dates Problem Status W/U Status Risk Notes Problem Screening for malignant neoplasm of colon (634728005) Encounter for screening for malignant neoplasm of colon (Z12.11) Active confirmed Problem Screening for malignant neoplasm of rectum (481733078) Encounter for screening for malignant neoplasm of rectum (Z12.12) Active confirmed Problem Preprocedural examination (553247657824799) Preprocedural examination (Z01.818) Active confirmed Plan Of Treatment Future Test Test Name Order Date COLONOSCOPY 06/17/2016 Insurance Providers Payer Name Payer Address Payer Phone Subscriber Number Group Number Insured Name Patient Relationship to Insured Coverage Start Date Coverage End Date [facility] [address] [place] [phone] [id number] LINNEA FELIX Self - patient is the insured Medical (General) History Medical History History ICD Code Denies ND,DM,CVA,renal disease Back and neck pain. Early COPD Surgical History Surgery Date(Month/Year) shoulder surgery-rotator cuff--left 2012
== END 2025-07-01 16:40 | disposition home or self-care (01) ==
LOC: HO.HMCHD 14:49
PROVIDERS: PCP Internal Medicine; Visit Provider Physician Assistant Medical
DX: K40.20 Bilateral inguinal hernia, without obstruction or gangrene, not specified as recurrent (principal); N43.3 Hydrocele, unspecified; N32.0 Bladder-neck obstruction